=== PATIENT | male | born 1950 | race Caucasian/White ===

== ENCOUNTER 2021-04-17 08:49 | Outpatient (CLI) | payer MEDICARE, OTHER, SELFPAY ==
--- NOTE | ~2021-04-17 | US_ITS ---
EXAMINATION: US carotid duplex BI DATE: 04/17/2021 09:44 INDICATION: Bilateral carotid artery atherosclerosis and stenosis. TECHNIQUE: Grayscale, color Doppler, and pulsed Doppler images of the cervical carotid arteries were obtained. The degree of vessel stenosis is placed in one of the following categories: normal, <50%, 5 0-69%, >=70% but less than near-occlusion, near-occlusion, or total occlusion. Note that percent sten osis relative to normal distal artery lumen diameter is indirectly measured from velocity measurement s as described by Cirilo, et al. Radiology 2003; 229:340-346. COMPARISON: 05/01/2018 FINDINGS: RIGHT: The right common carotid artery (CCA) peak systolic velocity (PSV) is 93 cm/s. The right internal car otid artery (ICA) PSV is 135 cm/s. The right ICA end-diastolic velocity (EDV) is 30 cm/s. The right I CA/CCA PSV ratio is 1.4. Grayscale and color Doppler images yield an estimate of 50-69% diameter redu ction from plaque in the ICA. The external carotid artery (ECA) PSV is 97 cm/s. There is antegrade fl ow in the right vertebral artery. LEFT: The left CCA PSV is 86 cm/s. The left ICA PSV is 127 cm/s. The left ICA EDV is 43 cm/s. The left ICA/ CCA PSV ratio is 1.5. Grayscale and color Doppler images yield an estimate of 50-69% diameter reducti on from plaque in the ICA. The ECA PSV is 85 cm/s. There is antegrade flow in the left vertebral bindu ry. IMPRESSION: 1. 50-69% stenosis in the right internal carotid artery. 2. 50-69% stenosis in the left internal carotid artery. Reviewed, dictated and finalized at location A.
== END 2021-04-17 08:50 | disposition home or self-care (01) ==
LOC: ANHIMG 08:53
PROVIDERS: PCP Family Medicine; Visit Provider Family Medicine
DX: I65.23 Occlusion and stenosis of bilateral carotid arteries (principal)
CPT/HCPCS: 93880

== ENCOUNTER → 2021-07-29 00:08 | Outpatient (CLI) | payer MEDICARE, OTHER, SELFPAY ==
[2021-07-29 16:46] LABS: SARS-CoV-2 RNA PCR Positive
== END ==
PROVIDERS: PCP Family Medicine; Visit Provider Nurse Practitioner Gerontology
DX: U07.1 COVID-19 (principal)
CPT/HCPCS: C9803; U0003; U0005

== ENCOUNTER 2021-08-01 13:17 | Outpatient (RCR) | payer MEDICARE, OTHER, SELFPAY ==
[2021-08-01 13:35] VITALS: BP 148/78; PULSE 105; TEMP 37.1; O2SAT 78
--- NOTE | 2021-08-01 14:03 | PC.NURSE ---
Patient arrived to center via wheelchair. O2 saturation initially 78% on room air, increasing to 82%. EMS was called to take patient to ED. Oxygen was initiated via nasal cannula requiring 5L to achieve and maintain 90%. Patient was discharged into EMS care on their oxygen tank and taken to [facility].
== END 2021-08-12 16:00 ==
LOC: AMCINF 13:17
PROVIDERS: PCP Nurse Practitioner Gerontology; Referring Provider Nurse Practitioner Gerontology; Visit Provider Internal Medicine Hematology & Oncology
DX: U07.1 COVID-19 (principal); Z53.9 Procedure and treatment not carried out, unspecified reason
CPT/HCPCS: 99205; 99215; G0463

== ENCOUNTER 2021-08-01 14:14 | Inpatient (IN) | payer MEDICARE, OTHER, SELFPAY ==
[2021-08-01] VITALS (17 sets, daily range): BP systolic 131–188; BP diastolic 70–85; PULSE 76–115; RESP 20–30; TEMP 36–37.8; O2SAT 91–99
--- NOTE | ~2021-08-01 | XR_ITS ---
XR chest 1V portable 08/05/2021 03:40 Indication: CovidPneumonia Procedure: AP portable chest Comparison: 08/01/2021 Findings: Borderline heart size. Extensive bilateral airspace disease, compatible with pneumonia. No significant effusion or pneumothorax. No acute osseous abnormality. Impression: 1: Extensive bilateral airspace disease, compatible with pneumonia. Reviewed, dictated and finalized at location A. CIATE PROFESSOR OF MANAGEMENT Impression: 1: Extensive bilateral airspace disease, compatible with pneumonia.
--- NOTE | ~2021-08-01 | XR_ITS ---
EXAMINATION: XR chest 1V portable INDICATION: Respiratory failure TECHNIQUE: Portable AP chest at 0512 hours COMPARISON: 08/08/2021 FINDINGS: The endotracheal tube ends approximately 4.7 cm above the fiordaliza. The nasogastric tube is f ollowed as far as the stomach. Its tip is beyond the inferior margin of the radiograph. A left physician general internal medicine al jugular central venous catheter ends with its tip in proximal superior vena cava. Diffuse airspace opacities persist throughout all lung zones with interval worsening. There is no pleural effusion or pneumothorax. The cardiomediastinal silhouette is stable. IMPRESSION: 1. Diffuse lung disease with interval worsening, consistent with pneumonia and/or pulmonary edema and /or acute respiratory distress syndrome (ARDS). Reviewed, dictated and finalized at location A. ERTY AND EQUIPMENT CLERK IMPRESSION: 1. Diffuse lung disease with interval worsening, consistent with pneumonia and/ or pulmonary edema and/or acute respiratory distress syndrome (ARDS).
--- NOTE | ~2021-08-01 | XR_ITS ---
EXAMINATION: XR abdomen NG/feed tube insert DATE: 08/05/2021 04:49 INDICATION: Nasogastric tube placement TECHNIQUE: A supine view of the abdomen and lower chest was obtained for evaluation of feeding tube placement. COMPARISON: None. FINDINGS: Is a gastric tube tip in proximal side port in the body of the stomach. No dilated loops of gas-fille d bowel in the visualized abdomen. Airspace opacities at the bilateral lung bases. Heart size is norm al. Anterior fusion with bone graft cage at L5-S1. L4 and L5 laminectomies and posterior spinal fusio n with bilateral vertical tj and pedicle screw fixation from L3-L5. IMPRESSION: 1. Nasogastric tube in the stomach. 2. Opacities at the bilateral lower lung zones consistent with pneumonia. Reviewed, dictated and finalized at location A. TIC WELDER
--- NOTE | ~2021-08-01 | XR_ITS ---
EXAMINATION: XR chest port-a-cath/central EXAM DATE: 08/08/2021 13:10 INDICATION: TECHNIQUE: Portable AP frontal chest x-ray was obtained. Comparison is made to prior examination from earlier same date. FINDINGS: Interval insertion of a left-sided jugular venous line, could be the external jugular given lateral course. Tip is overlying the SVC, adequate. I reviewed this case in my office at time of thi s dictation with the venous access nurse, Nolvia, who inserted this line. Endotracheal tube tip is about 5 centimeters above the fiordaliza. There is a nasogastric tube seen with tip collimated off the study, but below the left hemidiaphragm. Diffuse bilateral pneumonia or edema with relative sparing of the left upper lobe. There are no siza ble pleural effusions. There is no pneumothorax suspected. Mild cardiomegaly. The bones and soft tissues are unremarkable. There is no significant interval change in airspace disease compared to prior exam. IMPRESSION: 1. Line and tube(s) in position. 2. Diffuse bilateral pneumonia or edema. Reviewed, dictated and finalized at location A. ER DOBBY LOOM
--- NOTE | ~2021-08-01 | US_ITS ---
EXAMINATION: US renal BI DATE: 08/07/2021 10:38 INDICATION: Acute renal insufficiency TECHNIQUE: Multiple ultrasound grayscale images of the kidneys were obtained. COMPARISON: None. FINDINGS: The right kidney measures 10.8 x 6.1 x 4.8 cm. The left kidney measures 13.6 x 6.0 x 5.4 cm. The kidn eys demonstrate normal echogenicity. There is no hydronephrosis in either kidney. No stones identifi ed. Patient was in prone position and bladder was unable to be imaged. IMPRESSION: 1. Normal kidneys without hydronephrosis. Reviewed, dictated and finalized at location A. NESS SALES CONSULTANT
--- NOTE | ~2021-08-01 | XR_ITS ---
EXAMINATION: XR chest 1V portable EXAM DATE: 08/12/2021 05:29 INDICATION: respiratory failure TECHNIQUE: Portable AP frontal chest x-ray was obtained. Comparison is made to prior examination from 08/11/2021. FINDINGS: Endotracheal tube tip is 4 centimeters above the fiordaliza. Left-sided jugular venous line in position. There is a nasogastric tube seen with tip collimated off the study, but below the left hem idiaphragm. Cervical hardware. Diffuse bilateral pneumonia and/or edema unchanged. There are no sizable pleural effusions. There is no pneumothorax suspected. The cardiomediastinal silhouette is prominent but magnified on this A P technique. The bones and soft tissues are unremarkable. There is no significant interval change compared to prior exam. IMPRESSION: 1. Line and tube(s) in position. 2. Stable airspace disease and other findings as above. Reviewed, dictated and finalized at location A. HANGER
--- NOTE | ~2021-08-01 | XR_ITS ---
EXAMINATION: XR chest 1V portable EXAM DATE: 08/08/2021 06:11 INDICATION: intubation TECHNIQUE: Portable AP frontal chest x-ray was obtained. Comparison is made to prior examination from 08/07/2021 . FINDINGS: Endotracheal tube tip is about 4 centimeters above the fiordaliza. There is a nasogastric tube seen with tip collimated off the study, but below the left hemidiaphragm. Diffuse bilateral pneumonia or edema with relative sparing of the left upper lobe. There are no siza ble pleural effusions. There is no pneumothorax suspected. Mild cardiomegaly. The bones and soft tissues are unremarkable. There is no significant interval change compared to prior exam. IMPRESSION: 1. Line and tube(s) in position. 2. Diffuse bilateral pneumonia or edema. Reviewed, dictated and finalized at location A. IMEDIA PRODUCTION ASSISTANT
--- NOTE | ~2021-08-01 | US_ITS ---
EXAMINATION: US venous doppler UE DATE: 08/08/2021 11:06 INDICATION: Left arm swelling TECHNIQUE: Yo scale images with and without compression and Doppler images of the left upper extrem ity veins were obtained. COMPARISON: None. FINDINGS: The left internal jugular, subclavian, axillary, brachial and radial veins are patent. There is super ficial thrombosis in the left cephalic and cephalic veins with deep venous thrombosis of the left uln ar vein. IMPRESSION: 1. Deep venous thrombosis of the left ulnar vein. 2: Thrombosis of the basilic and cephalic and superficial veins. Reviewed, dictated and finalized at location B. SH PAINTER
--- NOTE | ~2021-08-01 | XR_ITS ---
EXAMINATION: XR chest 1V portable DATE: 08/10/2021 13:35 INDICATION: Respiratory distress. Endotracheal tube. TECHNIQUE: frontal view of the chest was obtained. COMPARISON: Chest radiograph dated 08/10/2021 FINDINGS: Endotracheal tube tip 3.7 cm above the fiordaliza. Nasogastric tube extends below the left hemidiaphragm with distal tip collimated off the study. Left internal jugular central venous catheter with distal tip at the midsuperior vena cava. Bilateral diffuse increased interstitial and airspace opacities with perihilar predominance with slig ht interval improvement. No pleural effusion or pneumothorax. Heart size is normal. Anterior spinal f usion in the mid cervical spine with anterior plate and screw fixation. Bilateral distal clavicle res ections. IMPRESSION: 1. Improvement in diffuse bilateral lung disease which could represent pulmonary edema, pneumonia or combination thereof. Reviewed, dictated and finalized at location A. NTIFIC INFORMATICS ANALYST IMPRESSION: 1. Improvement in diffuse bilateral lung disease which could represent pulmonar y edema, pneumonia or combination thereof.
--- NOTE | ~2021-08-01 | CT_ITS ---
EXAMINATION: CT brain wo con DATE: 08/04/2021 11:15 INDICATION: Fall. Head injury. TECHNIQUE: Computed tomography (CT) of the head was performed without intravenous contrast. The mA wa s adjusted according to patient size. Iterative reconstruction technique was employed. Exam dose: 68 1.00 mGy-cm total exam DLP. COMPARISON: August 01, 2021 CT brain FINDINGS: There is cerebral atherosclerosis and diminished attenuation cerebral white matter likely d ue to chronic small vessel ischemic change of the cerebral white matter. No intracranial mass lesion or hemorrhage or cerebrovascular accident. No midline shift or mass effec t effect. Normal ventricular size. No subdural or epidural hematoma is detected. Orbital contents are unremarkable. No fracture or bone destruction of the cranial vault. Paranasal sinuses and mastoid air cells are normally developed and aerated. IMPRESSION: Cerebral atherosclerosis and chronic small vessel ischemic changes of the cerebral white matter No acute intracranial finding or skull fracture Reviewed, dictated and finalized at Location A. Reviewed, dictated and finalized at location B. REPLACER
--- NOTE | ~2021-08-01 | XR_ITS ---
EXAMINATION: XR chest 1V portable DATE: 08/10/2021 06:10 INDICATION: COVID-19 pneumonia. TECHNIQUE: A single frontal view of the chest was obtained on 2 radiographs. COMPARISON: Chest single view 08/09/2021, chest CT 08/01/2021 FINDINGS: There are airspace and interstitial opacities in all lung zones bilaterally with a perihila r predominance. No pleural effusion or pneumothorax. The heart size is normal. The endotracheal tube tip is 4.9 cm above the fiordaliza. A left neck central venous catheter may be in the external jugular ve in with tip in the superior vena cava. The nasogastric tube tip is in the stomach. IMPRESSION: 1. Worsened diffuse lung disease, consistent with pneumonia without or with superimposed pulmonary ed jerilyn. Reviewed, dictated and finalized at location E. CITY MANAGEMENT SPECIALIST IMPRESSION: 1. Worsened diffuse lung disease, consistent with pneumonia without or with sup erimposed pulmonary edema.
--- NOTE | ~2021-08-01 | CT_ITS ---
EXAMINATION: CT abdomen pelvis wo con EXAM DATE: 08/04/2021 17:46 INDICATION: Abdominal pain. COVID positive. TECHNIQUE: Spiral CT of the abdomen and pelvis was performed without contrast. Axial, coronal and s agittal images of the abdomen and pelvis were reviewed. The dose-length product (DLP) for this exami nation was 1242.36 mGy-cm. The exposure was tailored according to patient size (auto mA exposure con trol), and iterative reconstruction (ASIR) was used as additional dose reduction technique. There is no prior study for comparison. FINDINGS: The liver, spleen, adrenal glands and pancreas are unremarkable. Gallbladder is unremarkab le. No biliary obstruction. Several punctate left inferior calyceal stones. No ureteral stones or h ydronephrosis. The prostate is unremarkable. The bladder is collapsed with Domingo catheter balloon a nchor inside. Bladder gas likely produced through the Domingo catheter. Small bilateral inguinal fat-co ntaining hernias. There is no retroperitoneal or pelvic lymphadenopathy. [id number] The appendix is normal. The stomach and small bowel are unremarkable. There is expected amount of c olonic stool. No free intraperitoneal gas. The heart is normal in size. There are no pericardial or pleural effusions. Moderate amount of basilar pneumonia. Mild lumbar levoscoliosis. Lumbar fusi on L3-S1. There are no osteoblastic or osteolytic lesions identified. IMPRESSION: 1. Moderate amount of basilar pneumonia. 2. Punctate left nephrolithiasis. 3. No acute intra-abdominal findings. Reviewed, dictated and finalized at location G. IDE SALESMAN
--- NOTE | ~2021-08-01 | XR_ITS ---
XR chest ET placement 08/05/2021 04:49 Indication: Respiratory distress Procedure: AP portable chest Comparison: Comparison to multiple prior studies sequentially, with oldest reviewed study dated 08/01. Findings: Endotracheal tube 11 mm above the fiordaliza. Consider repositioning with follow-up x-ray. Diff use bilateral airspace disease. Cardiomegaly. No pneumothorax. No significant effusion. Impression: 1: Diffuse bilateral airspace disease which may represent pneumonia or edema. Reviewed, dictated and finalized at location A. HMIC GYMNASTICS COACH Impression: 1: Diffuse bilateral airspace disease which may represent pneumonia or edema.
--- NOTE | ~2021-08-01 | CT_ITS ---
EXAMINATION: CTA chest PE protocol DATE: 08/01/2021 16:03 INDICATION: Shortness of breath. COVID positive. TECHNIQUE: Computed tomography (CT) pulmonary angiogram of the chest was performed with 100 mL Omnipa que-350 intravenous contrast. Additional 3D reconstructions utilizing coronal maximum intensity proje ction (MIP) were performed. Automated exposure control and iterative reconstruction technique were em ployed. The dose-length product was 944.69 mGy-cm. COMPARISON: None FINDINGS: Good contrast opacification of the pulmonary arteries. There is mild streak artifact from dense contr ast in the superior vena cava and right atrium. There is extensive respiratory motion artifact which significantly decreases sensitivity in the segmental pulmonary arteries and renders assessment in man y of the more peripheral subsegmental pulmonary arteries essentially nondiagnostic. No central pulmon artie embolism through the lobar pulmonary arteries or other definitive more peripheral pulmonary embol ism. There is extensive groundglass opacities throughout both lungs most prominent in the lower lung zones where there is also more dense peripheral consolidation in the dependent lower lobes. No pleura l effusion or pneumothorax. Heart size is normal. Atherosclerotic coronary artery calcific location. No pericardial effusion. Thoracic aorta is normal in caliber with no dissection. Mild likely reactive mediastinal lymphadenopathy. Visualized upper abdomen is unremarkable. Instrumented anterior spinal fusion at C5-C6 and C6-C7. Severe thoracic spondylosis. IMPRESSION: 1. No definitive pulmonary embolism. Sensitivity decreased in the lobar pulmonary arteries and essent ially nondiagnostic in many of the smaller subsegmental pulmonary arteries due to large amount of res piratory motion. 2. Diffuse bilateral lung disease with appearance favoring COVID pneumonia. Differential includes pul monary edema. 3. Likely reactive mild mediastinal lymphadenopathy. Reviewed, dictated and finalized at location A. RNAL CHILD NURSE IMPRESSION: 1. No definitive pulmonary embolism. Sensitivity decreased in the lobar pulmona ry arteries and essentially nondiagnostic in many of the smaller subsegmental p ulmonary arteries due to large amount of respiratory motion. 2. Diffuse bilateral lung disease with appearance favoring COVID pneumonia. Dif ferential includes pulmonary edema. 3. Likely reactive mild mediastinal lymphadenopathy.
--- NOTE | ~2021-08-01 | XR_ITS ---
EXAMINATION: XR chest 1V portable DATE: 08/11/2021 05:52 INDICATION: Respiratory failure. TECHNIQUE: A single frontal view of the chest was obtained on 2 radiographs. COMPARISON: Chest single view 08/10/2021, CT abdomen and pelvis 08/04/2021 FINDINGS: There are interstitial opacities in all lung zones bilaterally. No pleural effusion or pneu mothorax. The heart size is normal. The endotracheal tube tip is 5.6 cm above the fiordaliza. There is a left neck centered in this catheter with tip in superior vena cava. The insertion site is likely the left external jugular vein. There are changes of anterior fusion procedure in cervical spine. The carola ogastric tube tip is in the stomach. IMPRESSION: 1. Stable diffuse lung disease, consistent with pneumonia versus acute respiratory distress syndrome (ARDS). Reviewed, dictated and finalized at location A. ITIAN CHIEF IMPRESSION: 1. Stable diffuse lung disease, consistent with pneumonia versus acute respirat ory distress syndrome (ARDS).
--- NOTE | ~2021-08-01 | XR_ITS ---
XR chest 1V portable 08/06/2021 09:41 Indication: Respiratory distress. Status post intubation. Procedure: PA prone view of the chest Comparison: 08/05/2021 Findings: endotracheal tube tip 5 cm above the fiordaliza. NG tube tip not visualized. Diffuse bilateral airspace disease is unchanged. No pneumothorax. No significant effusion. Impression: 1: Diffuse bilateral airspace disease which may represent pneumonia or edema. Reviewed, dictated and finalized at location A. SPERSON WOMEN'S DRESSES Impression: 1: Diffuse bilateral airspace disease which may represent pneumonia or edema.
--- NOTE | ~2021-08-01 | CT_ITS ---
EXAMINATION: CT brain wo con DATE: 08/01/2021 16:01 INDICATION: Confusion. Covid-positive. TECHNIQUE: Computed tomography (CT) of the head was performed without intravenous contrast. The mA wa s adjusted according to patient size. Iterative reconstruction technique was employed. Exam dose: 68 1.00 mGy-cm total exam DLP. COMPARISON: None FINDINGS: No intracranial mass lesion or hemorrhage or cerebrovascular accident, midline shift or mas s effect effect is detected. Vertebral and carotid siphon internal carotid artery calcifications are noted. There is nonspecific d iminished attenuation of the cerebral white matter, likely due to chronic small vessel ischemic knapp es. No fracture or bone destruction of the cranial vault. Included paranasal sinuses and mastoid air cells are normally developed and aerated. IMPRESSION: Cerebral atherosclerosis and chronic small vessel ischemic changes of the cerebral white matter No acute intracranial finding Reviewed, dictated and finalized at Location A. Reviewed, dictated and finalized at location B. [employer]
--- NOTE | ~2021-08-01 | XR_ITS ---
EXAMINATION: XR chest 1V portable DATE: 08/01/2021 14:42 INDICATION: Shortness of breath. COVID-19 pneumonia. TECHNIQUE: A single frontal view of the chest was obtained. COMPARISON: None. FINDINGS: There are airspace opacities in the mid and lower lung zones. No pleural effusion or pneumo thorax. Cardiomegaly is noted. There are changes of anterior fusion procedure in cervical spine. IMPRESSION: 1. Airspace opacities in the mid and lower lung zones, consistent with pneumonia. 2. Cardiomegaly. Reviewed, dictated and finalized at location A. L FINANCIAL SPECIALIST IMPRESSION: 1. Airspace opacities in the mid and lower lung zones, consistent with pneumoni a. 2. Cardiomegaly.
--- NOTE | ~2021-08-01 | XR_ITS ---
EXAMINATION: XR chest 1V portable EXAM DATE: 08/07/2021 05:59 INDICATION: Respiratory failure. TECHNIQUE: Portable AP frontal chest x-ray was obtained. Comparison is made to prior examination from 08/06/2021. FINDINGS: Endotracheal tube tip is about 4 centimeters above the fiordaliza. There is a nasogastric tube seen with tip collimated off the study, but below the left hemidiaphragm. Diffuse bilateral pneumonia or edema unchanged. There are no sizable pleural effusions. There is n o pneumothorax suspected. Mild cardiomegaly. The bones and soft tissues are unremarkable. There is no significant interval change compared to prior exam. IMPRESSION: 1. Line and tube(s) in position. 2. Diffuse bilateral pneumonia or edema. Reviewed, dictated and finalized at location A. RETE PAVEMENT INSTALLER
--- NOTE | 2021-08-01 14:20 | ECG_ITS ---
Measurements Intervals Inez Rate: 100 P: 43 WV: 174 QRS: -3 QRSD: 85 T: 33 QT: 316 QTc: 409 Interpretive Statements SINUS TACHYCARDIA BASELINE ARTIFACT- I, II, III, AVR, AVL, AVF BORDERLINE ECG Electronically Signed On 08-01-2021 15:57:16 ADVENTURE GUIDE by Gerald Steel D.O.
--- NOTE | 2021-08-01 14:51 | ED.SOB ---
HPI - SOB/Dyspnea General Chief Complaint: Shortness of Breath/Dyspnea Stated Complaint: low O2 sat, confusion Time Seen by Provider: 08/01/21 14:38 Source: patient Mode of arrival: EMS Limitations: altered mental status History of Present Illness HPI Narrative: Patient is a 71-year-old male with history of hypertension, hyperlipidemia, day 10 of Covid illness tested + July 29, positive testing in our EMR 07/29 presenting to the emergency department for evaluation of shortness of breath, confusion. Patient reportedly confused, with increasing shortness of breath, called EMS this morning and was brought to emergency department. At the time of assessment, patient is alert and oriented to person, place, can state the president. He does seem mildly confused, has some difficulty answering questions. Patient reporting cough, malaise, fatigue, fever. Denies loss of sense of taste or smell. Denies diarrhea. Denies chest pain or abdominal pain. Patient is not vaccinated. Patient's sick with similar symptoms. Related Data Home Medications Medication Instructions Recorded Confirmed multivitamin 1 tablet PO DAILY 05/28/19 07/28/21 pyridoxine (vitamin B6) 5 mg mg PO 08/28/19 07/28/21 capsule vitamin B complex 1 tablet PO DAILY 05/03/20 07/28/21 Allergies Allergy/AdvReac Type Severity Reaction Status Date / Time No Known Allergies Allergy Mild Verified 08/01/21 14:24 Review of Systems Review of Systems: CONSTITUTIONAL: Reports fever and chills CARDIOVASCULAR: Denies chest pain RESPIRATORY: Reports cough and shortness of breath GASTROINTESTINAL: Denies abdominal pain SKIN: Denies rash MUSCULOSKELETAL: Denies back pain NEUROLOGIC: Denies headache ROS unobtainable: Yes unobtainable due to mental status PMFSH Past Medical History Medical History Prediabetes Surgical History Surgical History History of cervical spinal surgery History of lumbar surgery Status post cervical spinal arthrodesis Family History Family History Father Family history of kidney disease Family history of coronary artery disease, Onset Age: 75 Social History Social History Social History: Smoking status: Former smoker Second hand tobacco smoke exposure: No Alcohol intake: current Alcohol use details: Occasionally Substance use: never Substance use type: does not use Gender identity (if verbalized by the patient): Male Sexual Orientation (if Verbalized by the Patient): Straight or Heterosexual Exam Narrative: GENERAL: Awake, alert HEAD: Normocephalic, atraumatic. EYES: PERRLA and EOMI. ENT: Nares clear, no rhinorrhea or epistaxis. Mucous membranes dry NECK: Supple. CHEST: Pt with respiratory distress, hypoxic respiratory failure, tachypneic, coarse breath sounds HEART: Tachycardic rate, sinus rhythm ABDOMEN:Non distended, non tender EXTREMITIES: Normal range of motion. No edema. SKIN: Warm, dry, no rash. NEURO:No focal deficits. Alert and oriented x2, slightly confused, difficulty obtaining detailed history Course Vital Signs Vital signs: Vital Signs Temperature 37.8 C H 08/01/21 14:18 Pulse Rate 101 H 08/01/21 14:18 Respiratory Rate 27 H 08/01/21 14:18 Blood Pressure 188/85 H 08/01/21 14:18 Pulse Oximetry 93 08/01/21 14:18 Temperature 37.3 C 08/01/21 16:42 Pulse Rate 89 08/01/21 15:44 Respiratory Rate 26 H 08/01/21 15:44 Blood Pressure 139/70 08/01/21 15:44 Pulse Oximetry 96 08/01/21 15:44 MDM - SOB/Dyspnea MDM Narrative Medical decision making narrative: Patient is a 71-year-old presenting to the emergency department for evaluation of Covid respiratory failure. The time of assessment, patient is hypoxic, tachycardic, tachypneic. Patient was on
[2021-08-01] MEDS: SODIUM CHLORIDE 0.9% IV 500 ML 999 ML IV CONT (15:04)
[2021-08-01 15:07] LABS: Basophils Percent Auto 0.2 % (0.2-1.2); Hemoglobin 15.8 g/dL (14.0-18.0); Immature Granulocyte Absolute 0.13 K/mm3 (0.00-0.031); Immature Granulocyte Percent A 1.2 % (0-0.5); Lymphocytes Absolute Auto 0.71 K/mm3 (0.9-3.2); Lymphocytes Percent Auto 6.3 % (18.3-44.2); Mean Corpuscular HGB Conc 35.1 g/dl (32-36); Mean Corpuscular Volume 91.3 fl (80-100); Mean Platelet Volume 11.8 fl (7.4-10.4); Monocytes Absolute Auto 0.6 K/mm3 (0.1-0.6); Monocytes Percent Auto 5.2 % (2.6-8.5); Neutrophils Absolute Auto 9.8 K/mm3 (1.3-6.7); Neutrophils Percent Auto 87.1 % (45.5-73.1); Platelet Count Result 221 k/mm3 (150-375); Red Blood Count 4.93 M/mm3 (4.6-6.20); Red Cell Distribution Width 13.7 % (11.5-14.5); White Blood Count 11.2 K/mm3 (4.5-10.0)
[2021-08-01 15:15] LABS: Lactic Acid Reflex 2.3 mmol/L (0.7-2.1)
[2021-08-01 15:33] LABS: Alanine Aminotransferase 58 U/L (4-50); Albumin Level 3.6 g/dL (3.5-5.1); Alkaline Phosphatase 71 U/L (38-126); Anion Gap 7 mmol/L (8-16); Aspartate Amino Transferase 201 U/L (17-59); Bilirubin,Total 0.7 mg/dL (0.2-1.3); Blood Urea Nitrogen 18 mg/dL (9-20); Calcium 8.6 mg/dL (8.4-10.2); Carbon Dioxide 26 mmol/L (22-30); Chloride 99 mmol/L (98-107); Estimated CRCL calculation 70 ml/min; Estimated Glomerular Filt Rate > 60; Glucose 201 mg/dL (65-110); Potassium 4.7 mmol/L (3.4-5.0); Sodium 132 mmol/L (137-145)
[2021-08-01 15:35] LABS: Atypical Lymphocytes Present; Platelet Estimate Adequate (Adequate)
[2021-08-01 15:36] LABS: CRP 8.9 mg/dL (<1.0)
[2021-08-01 15:50] LABS: Procalcitonin 0.1 ng/mL
[2021-08-01 15:53] LABS: Alveolar/Arterial O2 Gradient 617.1 mmHg; Base Excess ABG -2.8 mEq/l (+/-2.0); Carboxyhemoglobin 0.3 % THb (0-2.0); Fractional Inspired Oxygen 100 %; HCO3 ABG 18.9 mEq/l (22.0-26.0); Methemoglobin ABG 0.3 %THb (0-1.5); Modified Allen's Test Pass; Oxygen Saturation ABG 95.4 % (95.0-100.0); Oxyhemoglobin 93.1 % THb (90.0-100.0); PO2 ABG 69.9 mmHg (80.0-100.0); Reduced Hemoglobin 6.3 %THb (0-5.0); Site Drawn RIGHT RADIAL; Total Hemoglobin 15.3 g/dL (12.0-18.0); pH ABG 7.479 (7.350-7.450)
--- NOTE | 2021-08-01 16:12 | PC.NURSE ---
Patient attempting to urinate at this time.
[2021-08-01 16:36] LABS: Lactate Dehydrogenase 2426 U/L (313-618)
[2021-08-01 16:53] LABS: Add Urine Microscopic? YES; Appearance Urine Clear (Clear); Bilirubin Urine Negative (Negative); Blood Urine Negative (Negative); Color Urine Yellow (Yellow); Glucose Urine UA 1+ mg/dL (Negative); Ketones Urine Negative (Negative); Leukocyte Esterase Ur Negative LEU/UL (Negative); Mucus Urine Rare /lpf; Nitrate Urine Negative (Negative); Protein Urine 3+ mg/dL (Negative); RBC Urine 0-2 /hpf (0-2); Urobilinogen Urine Negative mg/dL (<2.0); WBC Urine 0-3 /hpf
--- NOTE | 2021-08-01 16:54 | PC.NURSE ---
Called lab and spoke to Kaushik to add on PT/INR and Creat w/EGFR Alt. Kaushik states Creat should have already been done.
[2021-08-01 16:57] LABS: Specific Grav Ur 1.045 (1.001-1.035)
[2021-08-01 17:09] LABS: INR 1.1; Prothrombin Time 13.6 Seconds (11.1-14.7)
[2021-08-01] MEDS: REMDESIVIR 200 MG/NS 250 ML 200 MG/250 ML BAG 250 MG IVPB (17:49)
[2021-08-01 18:03] LABS: Reflex Lactic Acid Yes or No Add Lactic
--- NOTE | 2021-08-01 18:11 | PC.NURSE ---
This patient, Zenon Worrell, was admitted to IMU Room 232-01. Patient/family oriented to hospital policies and general routines including ID bracelet, bed and alarms, visiting hours, pain management, procedures, bathroom and other care routines, personal items, smoking policy, room service/diet, and visiting hours. Information on how to activate the Rapid Response Team has been discussed. Patient/Family are encouraged to report perceived risks to care and to ask questions if they do not understand what they are told or what they should do.
[2021-08-01 18:14] LABS: Ferritin > 2000.00 ng/mL (11.1-264)
--- NOTE | 2021-08-01 21:12 | PM.IMHP ---
H&P: HPI History of Present Illness Date/Time: 08/01/21 21:12 this is a 71-year-old male patient who lives at home with his . He is on vaccinated male patient who has a history of hypertension and hyperlipidemia. The patient tested positive on July 29. The patient presented to the emergency room with complaints of shortness of breath and confusion. Patient was more short of breath patient was brought to the emergency room via ambulance and he was alert orientated to person and place and could state who the president was. The patient is answering some questions but is still having some mental fogginess. Patient's is also sick with the similar symptoms. Head CT was read as cerebral atherosclerosis and chronic small-vessel ischemic changes of the cerebral white matter no acute intracranial findings. Chest CTA was read as the following.1. No definitive pulmonary embolism. Sensitivity decreased in the lobar pulmonary arteries and essentially nondiagnostic in many of the smaller subsegmental pulmonary arteries due to large amount of respiratory motion. 2. Diffuse bilateral lung disease with appearance favoring COVID pneumonia. Differential includes pulmonary edema. 3. Likely reactive mild mediastinal lymphadenopathy. The patient was given IV Tylenol, IV fluids Decadron and REM does severe in the emergency room. The patient is being admitted to inpatient status on the date of service 08/01/2021. Chief Complaint: Shortness of breath Review of Systems Review of Systems: All systems reviewed & are unremarkable except as noted in HPI and below Constitutional: Constitutional: Reports as per HPI and Reports no additional constitutional complaints Eyes: Eyes: Reports as per HPI and Reports no additional eye complaints ENT: Reports system reviewed and no additional complaints, except as documented and Reports Normal hearing present Cardiovascular: Cardiovascular: Reports no additional cardiovascular complaints Respiratory: Respiratory: Reports no additional respiratory complaints and Reports no additional respiratory complaints Gastrointestinal: Gastrointestinal: Reports as per HPI and Reports no additional gastrointestinal complaints Musculoskeletal: Musculoskeletal: Reports no additional musculoskeletal complaints Integumentary/Breasts: Skin/Breast: Reports system reviewed and no additional complaints, except as docu and Reports as per HPI Neurologic: Reports system reviewed and no additional complaints, except as documented, Reports as per HPI and Reports Normal hearing present Psychiatric: Psychiatric: Reports no additional psychiatric complaints and Reports as per HPI Endocrine: Endocrine: Reports no additional endocrine complaints Hematologic/Lymphatic: Hematologic/Lymphatic: Reports no additional hematologic/lymphatic complaints Allergic/Immunologic: Allergic/Immunologic: Reports no additional allergic/immunologic complaints PMFSH Past Medical History Medical History (Updated 08/01/21 @ 21:21 by Leila Botello NP) Arthritis Essential (primary) hypertension Mixed hyperlipidemia Prediabetes Surgical History Surgical History (Updated 08/01/21 @ 21:20 by Leila Btoello NP) H/O elbow surgery Bilaterally H/O toe surgery Bilateral toe implants History of cervical spinal surgery History of lumbar surgery History of shoulder surgery Bilaterally History of surgery on wrist Status post cervical spinal arthrodesis Family History Family History Father Family history of kidney disease Family history of coronary artery disease, Onset Age: 75 Social History Social History (Updated 08/01/21 @ 21:22 by Leila Botello NP) Social History: 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 He has 1 child. He retired from [employer]. He occasionally has a drink a beer he is a former smoker. Does not use any marijuana o
[2021-08-01 21:42] LABS: Basophils Absolute Auto 0.1 K/mm3 (0.0-0.1); Basophils Percent Auto 0.4 % (0.2-1.2); Eosinophils Absolute Auto 0.1 K/mm3 (0-0.3); Eosinophils Percent Auto 0.6 % (0-4.4); Hematocrit 45.7 % (42.0-52.0); Hemoglobin 15.2 g/dL (14.0-18.0); Immature Granulocyte Absolute 0.16 K/mm3 (0.00-0.031); Immature Granulocyte Percent A 1.3 % (0-0.5); Lymphocytes Absolute Auto 0.69 K/mm3 (0.9-3.2); Lymphocytes Percent Auto 5.6 % (18.3-44.2); Mean Corpuscular HGB Conc 33.3 g/dl (32-36); Mean Corpuscular Hemoglobin 31.1 pg (26-34); Mean Corpuscular Volume 93.6 fl (80-100); Mean Platelet Volume 11.6 fl (7.4-10.4); Monocytes Absolute Auto 0.6 K/mm3 (0.1-0.6); Monocytes Percent Auto 5.1 % (2.6-8.5); Neutrophils Absolute Auto 10.8 K/mm3 (1.3-6.7); Platelet Count Result 225 k/mm3 (150-375); Red Blood Count 4.88 M/mm3 (4.6-6.20); Red Cell Distribution Width 13.7 % (11.5-14.5); White Blood Count 12.4 K/mm3 (4.5-10.0)
[2021-08-01 21:51] LABS: Alanine Aminotransferase 56 U/L (4-50); Aspartate Amino Transferase 195 U/L (17-59); Estimated CRCL calculation 79 ml/min; Estimated Glomerular Filt Rate > 60
[2021-08-01 21:58] LABS: Atypical Lymphocytes Present; Platelet Estimate Adequate (Adequate)
[2021-08-01] MEDS: BARICITINIB 2 MG TABLET 4 MG PO (23:08)
[2021-08-01] MEDS: ENOXAPARIN 40 MG/0.4 ML SYRINGE SUB-Q (23:09)
[2021-08-02] VITALS (18 sets, daily range): BP systolic 111–167; BP diastolic 56–88; PULSE 70–116; RESP 18–26; TEMP 36.2–36.9; O2SAT 88–100
[2021-08-02] MEDS: ALBUTEROL SULFATE (*SP) AEROSOL 1 PUFF 2 PUFF INHALATION ×4 (02:40→19:56)
[2021-08-02 08:12] LABS: Device NON-REBREATHER MASK
[2021-08-02 09:04] LABS: Glucose Point of Care 170 mg/dl (65-105)
[2021-08-02] MEDS: guaiFENesin/DEXTROMETHORPHAN 10 ML UDC PO (09:43)
[2021-08-02] MEDS: HYDROcodone/acetaminophen (*CRX) 5-325 MG TABLET 1 TAB PO ×3 (09:43→21:17)
[2021-08-02] MEDS: BARICITINIB 2 MG TABLET 4 MG PO (09:45)
[2021-08-02] MEDS: CELECOXIB 200 MG CAPSULE PO ×2 (09:47→16:27)
[2021-08-02] MEDS: ASPIRIN 81 MG CHEWABLE TABLET PO (09:48)
[2021-08-02] MEDS: CHOLECALCIFEROL 1,000 UNITS TABLET 1000 UNITS PO (09:48)
[2021-08-02] MEDS: LOSARTAN POTASSIUM 100 MG TABLET PO (09:48)
[2021-08-02] MEDS: PYRIDOXINE HCL 50 MG TABLET 100 MG PO (09:48)
[2021-08-02] MEDS: MULTIVITAMINS THERAPEUTIC TAB (*BKC) 1 TABLET PO (09:49)
[2021-08-02] MEDS: hydroCHLOROthiazide 12.5 MG CAPSULE PO (09:49)
[2021-08-02] MEDS: ASCORBIC ACID 500 MG TABLET 1000 MG PO (09:49)
[2021-08-02] MEDS: ZINC SULFATE 220 MG CAPSULE PO (09:49)
[2021-08-02] MEDS: CYANOCOBALAMIN 500 MCG TABLET PO (09:50)
[2021-08-02] MEDS: ATORVASTATIN 20 MG TABLET PO (09:50)
[2021-08-02] MEDS: MIRABEGRON 50 MG ER TABLET PO (10:04)
[2021-08-02 10:54] LABS: Basophils Percent Auto 0.2 % (0.2-1.2); Hematocrit 43.5 % (42.0-52.0); Hemoglobin 15.1 g/dL (14.0-18.0); Immature Granulocyte Absolute 0.09 K/mm3 (0.00-0.031); Immature Granulocyte Percent A 0.8 % (0-0.5); Lymphocytes Absolute Auto 0.68 K/mm3 (0.9-3.2); Lymphocytes Percent Auto 5.7 % (18.3-44.2); Mean Corpuscular HGB Conc 34.7 g/dl (32-36); Mean Corpuscular Hemoglobin 31.7 pg (26-34); Mean Corpuscular Volume 91.2 fl (80-100); Monocytes Absolute Auto 0.6 K/mm3 (0.1-0.6); Neutrophils Absolute Auto 10.5 K/mm3 (1.3-6.7); Neutrophils Percent Auto 88.3 % (45.5-73.1); Platelet Count Result 254 k/mm3 (150-375); Red Blood Count 4.77 M/mm3 (4.6-6.20); Red Cell Distribution Width 13.6 % (11.5-14.5); White Blood Count 11.8 K/mm3 (4.5-10.0)
[2021-08-02 11:04] LABS: Lactic Acid Reflex 2.5 mmol/L (0.7-2.1)
[2021-08-02 11:08] LABS: INR 1.2; Prothrombin Time 14.8 Seconds (11.1-14.7)
[2021-08-02 11:18] LABS: Alanine Aminotransferase 49 U/L (4-50); Albumin Level 3.7 g/dL (3.5-5.1); Alkaline Phosphatase 69 U/L (38-126); Anion Gap 10 mmol/L (8-16); Aspartate Amino Transferase 171 U/L (17-59); Bilirubin,Total 0.7 mg/dL (0.2-1.3); Blood Urea Nitrogen 20 mg/dL (9-20); Calcium 8.7 mg/dL (8.4-10.2); Carbon Dioxide 26 mmol/L (22-30); Chloride 99 mmol/L (98-107); Estimated CRCL calculation 79 ml/min; Estimated Glomerular Filt Rate > 60; Glucose 203 mg/dL (65-110); Lactate Dehydrogenase 1991 U/L (313-618); Sodium 135 mmol/L (137-145)
[2021-08-02 11:38] LABS: Thyroid Stimulating Hormone Reflex 0.804 uIU/mL (0.465-4.68)
--- NOTE | 2021-08-02 11:45 | P.CDI_ITS ---
CDI Query Clarification Request -Respiratory failure documented by EDP -No documentation of respiratory failure by hospitalist -08/01 ABG's: pH 7.479 pCO2 26.0 pO2 69.9 HCO3 18.9 O2 sats 95% on O2 at 15L NRB -Pt currently on high flow therapy plus NC at 60L -Covid PN documented Please clarify respiratory status: * Respiratory failure ruled out * Acute respiratory failure * Chronic respiratory failure * Acute on chronic respiratory failure * Other * Unable to determine <Annette Blum RN - Last Filed: 08/02/21 11:50> Clarified Diagnosis (1) Acute respiratory failure: Code(s): J96.00 - Acute respiratory failure, unspecified whether with hypoxia or hypercapnia <Annette Blum RN - Last Filed: 08/02/21 11:50> Status: Acute <Annette Blum RN - Last Filed: 08/02/21 11:50> Assessment and Plan: patient with acute respiratory failure most likely secondary to COVID-19 pneumonia <Fransisco Mckeon MD - Last Filed: 08/19/21 14:49>
[2021-08-02 11:54] LABS: Hemoglobin A1C 6.3 % (<5.7)
[2021-08-02 12:58] LABS: Glucose Point of Care 200 mg/dl (65-105)
--- NOTE | 2021-08-02 13:16 | PCCCNOTE ---
On 08/02/21, the student, [Nina Ledbetter], provided care and [facility]. I have reviewed the student's documentation and agree with the findings.
[2021-08-02 13:49] LABS: Reflex Lactic Acid Yes or No Add Lactic
[2021-08-02] MEDS: ALPRAZolam (*CRX) 0.5 MG TABLET PO ×2 (14:26→21:17)
[2021-08-02 14:57] LABS: Lactic Acid 1.9 mmol/L (0.7-2.1)
--- NOTE | 2021-08-02 16:14 | PM.IMPN ---
Progress Note: A&P Assessment and Plan (1) COVID-19: Code(s): U07.1 - COVID-19 Status: Acute Assessment and Plan: The patient is unvaccinated. He is on contact and droplet isolation. The patient is on remdesivir and Decadron as well as olumiant. Continue to monitor labs daily. Continue with albuterol inhaler. Mike. 08/02/2021 interval history patient with COVID-19 patient is is requiring high-flow oxygen being started on dexamethasone, remdesivir and baricinib, will continue to monitor patient oxygen requirement and further recommendation to follow. (2) Essential (primary) hypertension: Code(s): I10 - Essential (primary) hypertension Status: Chronic Assessment and Plan: Continue with losartan and hydrochlorothiazide. Monitor renal function closely. (3) Mixed hyperlipidemia: Code(s): E78.2 - Mixed hyperlipidemia Status: Chronic Assessment and Plan: Continue with atorvastatin. (4) Arthritis: Code(s): M19.90 - Unspecified osteoarthritis, unspecified site Status: Chronic Assessment and Plan: Continue with pain medication Celebrex. Monitor for any signs and symptoms of bleeding since the patient is on DVT prophylaxis with Lovenox. Additional Plan The patient is listed as prediabetic but his blood sugar was in the 200s and he was started on Decadron so I am going to do sliding scale insulin with Accu-Cheks AC and HS and check A1c. Subjective Date/time seen: 08/02/21 16:14 this is a 71-year-old male patient who lives at home with his . He is on vaccinated male patient who has a history of hypertension and hyperlipidemia. The patient tested positive on July 29. The patient presented to the emergency room with complaints of shortness of breath and confusion. Patient was more short of breath patient was brought to the emergency room via ambulance and he was alert orientated to person and place and could state who the president was. The patient is answering some questions but is still having some mental fogginess. Patient's is also sick with the similar symptoms. Head CT was read as cerebral atherosclerosis and chronic small-vessel ischemic changes of the cerebral white matter no acute intracranial findings. Chest CTA was read as the following.1. No definitive pulmonary embolism. Sensitivity decreased in the lobar pulmonary arteries and essentially nondiagnostic in many of the smaller subsegmental pulmonary arteries due to large amount of respiratory motion. 2. Diffuse bilateral lung disease with appearance favoring COVID pneumonia. Differential includes pulmonary edema. 3. Likely reactive mild mediastinal lymphadenopathy. The patient was given IV Tylenol, IV fluids Decadron and REM does severe in the emergency room. The patient is being admitted to inpatient status on the date of service 08/01/2021. Chief Complaint: Shortness of breath 08/02/2021 interval history patient with COVID-19 patient is is requiring high-flow oxygen being started on dexamethasone, remdesivir and baricinib, will continue to monitor patient oxygen requirement and further recommendation to follow. Review of Systems Review of Systems: All systems reviewed & are unremarkable except as noted in HPI and below Exam Narrative: Patient is comfortable, NAD HEENT: eyes are clear and none icteric non-rebreather mask LUNGS: normal respiratory effort ABD: distended Lower extremities: no edema SKIN: nonjaundiced Neuro: grossly intact. Objective Data Vital Signs Vital Signs: Vital Signs - 24 hr 08/01/21 16:42 08/01/21 17:08 08/01/21 17:15 Temperature 99.2 F Pulse Rate 78 84 Respiratory Rate 20 26 H Blood Pressure Pulse Oximetry 94 94 08/01/21 17:30 08/01/21 17:31 08/01/21 17:45 Temperature Pulse Rate 78 83 77 Respiratory Rate 26 H 25 H 24 H Blood Pressure 139/71 Pulse Oximetry 95 94 97 08/01/21 18:00 08/01/21 18:02 08/01/21 18:35 Te
[2021-08-02] MEDS: INSULIN ASPART (*BKC) 100 UNITS/ML SUB-Q (16:28)
[2021-08-02 16:57] LABS: Glucose Point of Care 220 mg/dl (65-105)
[2021-08-02 20:52] LABS: Glucose Point of Care 206 mg/dl (65-105)
[2021-08-02] MEDS: ENOXAPARIN 40 MG/0.4 ML SYRINGE SUB-Q (21:16)
[2021-08-02] MEDS: REMDESIVIR 100 MG/NS 250 ML 100 MG/250 ML BAG 250 MG IVPB (21:17)
[2021-08-03] VITALS (16 sets, daily range): BP systolic 127–158; BP diastolic 73–83; PULSE 60–110; RESP 18–28; TEMP 36.1–36.6; O2SAT 89–98
[2021-08-03] MEDS: ALBUTEROL SULFATE (*SP) AEROSOL 1 PUFF 2 PUFF INHALATION ×4 (02:15→21:24)
[2021-08-03 05:03] LABS: Basophils Percent Auto 0.3 % (0.2-1.2); Hematocrit 40.2 % (42.0-52.0); Immature Granulocyte Absolute 0.06 K/mm3 (0.00-0.031); Immature Granulocyte Percent A 0.5 % (0-0.5); Lymphocytes Absolute Auto 0.58 K/mm3 (0.9-3.2); Lymphocytes Percent Auto 5.2 % (18.3-44.2); Mean Corpuscular HGB Conc 34.8 g/dl (32-36); Mean Corpuscular Hemoglobin 31.3 pg (26-34); Mean Corpuscular Volume 89.7 fl (80-100); Mean Platelet Volume 11.3 fl (7.4-10.4); Monocytes Absolute Auto 0.6 K/mm3 (0.1-0.6); Neutrophils Absolute Auto 9.9 K/mm3 (1.3-6.7); Platelet Count Result 284 k/mm3 (150-375); Red Blood Count 4.48 M/mm3 (4.6-6.20); Red Cell Distribution Width 13.6 % (11.5-14.5); White Blood Count 11.1 K/mm3 (4.5-10.0)
[2021-08-03 05:23] LABS: Alanine Aminotransferase 42 U/L (4-50); Aspartate Amino Transferase 159 U/L (17-59); Estimated CRCL calculation 79 ml/min; Estimated Glomerular Filt Rate > 60
[2021-08-03 05:32] LABS: INR 1.3; Prothrombin Time 15.3 Seconds (11.1-14.7)
[2021-08-03 09:07] LABS: Glucose Point of Care 169 mg/dl (65-105)
[2021-08-03] MEDS: MULTIVITAMINS THERAPEUTIC TAB (*BKC) 1 TABLET PO (09:18)
[2021-08-03] MEDS: PYRIDOXINE HCL 50 MG TABLET 100 MG PO (09:18)
[2021-08-03] MEDS: ASCORBIC ACID 500 MG TABLET 1000 MG PO (09:18)
[2021-08-03] MEDS: LOSARTAN POTASSIUM 100 MG TABLET PO (09:18)
[2021-08-03] MEDS: CYANOCOBALAMIN 500 MCG TABLET PO (09:18)
[2021-08-03] MEDS: ATORVASTATIN 20 MG TABLET PO (09:18)
[2021-08-03] MEDS: MIRABEGRON 50 MG ER TABLET PO (09:19)
[2021-08-03] MEDS: ZINC SULFATE 220 MG CAPSULE PO (09:19)
[2021-08-03] MEDS: BARICITINIB 2 MG TABLET 4 MG PO (09:19)
[2021-08-03] MEDS: CHOLECALCIFEROL 1,000 UNITS TABLET 1000 UNITS PO (09:19)
[2021-08-03] MEDS: ASPIRIN 81 MG CHEWABLE TABLET PO (09:19)
[2021-08-03] MEDS: CELECOXIB 200 MG CAPSULE PO ×2 (09:20→16:50)
[2021-08-03] MEDS: FUROSEMIDE INJ 40 MG/4 ML VIAL IV PUSH (13:03)
[2021-08-03 13:08] LABS: Glucose Point of Care 185 mg/dl (65-105)
--- NOTE | 2021-08-03 16:26 | PM.IMPN ---
Progress Note: A&P Assessment and Plan (1) COVID-19: Code(s): U07.1 - COVID-19 Status: Acute Assessment and Plan: The patient is unvaccinated. He is on contact and droplet isolation. The patient is on remdesivir and Decadron as well as olumiant. Continue to monitor labs daily. Continue with albuterol inhaler. Mike. 08/02/2021 interval history patient with COVID-19 patient is is requiring high-flow oxygen being started on dexamethasone, remdesivir and baricinib, will continue to monitor patient oxygen requirement and further recommendation to follow. 08/03/2021 interval history patient with COVID-19 patient is is requiring high-flow oxygen being started on dexamethasone, remdesivir and baricinib, will lasix 40mg IV as it shown to improe oxygenation, will continue to monitor patient oxygen requirement and further recommendation to follow. (2) Essential (primary) hypertension: Code(s): I10 - Essential (primary) hypertension Status: Chronic Assessment and Plan: Continue with losartan and hydrochlorothiazide. Monitor renal function closely. (3) Mixed hyperlipidemia: Code(s): E78.2 - Mixed hyperlipidemia Status: Chronic Assessment and Plan: Continue with atorvastatin. (4) Arthritis: Code(s): M19.90 - Unspecified osteoarthritis, unspecified site Status: Chronic Assessment and Plan: Continue with pain medication Celebrex. Monitor for any signs and symptoms of bleeding since the patient is on DVT prophylaxis with Lovenox. Additional Plan The patient is listed as prediabetic but his blood sugar was in the 200s and he was started on Decadron so I am going to do sliding scale insulin with Accu-Cheks AC and HS and check A1c. Subjective Date/time seen: 08/03/21 16:26 08/03/2021 interval history patient with COVID-19 patient is is requiring high-flow oxygen being started on dexamethasone, remdesivir and baricinib, will lasix 40mg IV as it shown to improe oxygenation, will continue to monitor patient oxygen requirement and further recommendation to follow. Review of Systems Review of Systems: All systems reviewed & are unremarkable except as noted in HPI and below Exam Narrative: Patient is comfortable, NAD HEENT: eyes are clear and none icteric non-rebreather mask LUNGS: normal respiratory effort ABD: distended Lower extremities: no edema SKIN: nonjaundiced Neuro: grossly intact. Objective Data Vital Signs Vital Signs: Vital Signs - 24 hr 08/02/21 18:00 08/02/21 20:00 08/02/21 20:13 Temperature 97.8 F Pulse Rate 72 93 Respiratory Rate 22 H Blood Pressure 160/78 H Pulse Oximetry 99 97 08/02/21 20:16 08/02/21 22:00 08/03/21 00:00 Temperature 97.6 F Pulse Rate 90 70 64 Respiratory Rate 26 H 18 Blood Pressure 127/73 Pulse Oximetry 96 96 08/03/21 02:00 08/03/21 02:41 08/03/21 04:00 Temperature 97.8 F Pulse Rate 71 75 60 Respiratory Rate 26 H 28 H Blood Pressure 140/79 Pulse Oximetry 96 98 08/03/21 06:00 08/03/21 08:00 08/03/21 09:05 Temperature 97 F L Pulse Rate 61 66 Respiratory Rate 24 H Blood Pressure 150/81 H Pulse Oximetry 92 92 08/03/21 10:00 08/03/21 12:00 08/03/21 14:00 Temperature 97.8 F Pulse Rate 96 90 110 H Respiratory Rate 24 H Blood Pressure 153/83 H Pulse Oximetry 92 08/03/21 14:56 08/03/21 16:00 Temperature Pulse Rate Respiratory Rate Blood Pressure Pulse Oximetry 90 92 Intake/Output Intake/Output: Intake & Output 07/31/21 08/01/21 08/02/21 08/03/21 23:59 23:59 23:59 23:59 Intake Total 600 250 150 Output Total 2050 1075 Balance 479 -[phone] -382 Meds/Results Medications: Active Medications Generic Name Dose Route Start Last Admin Trade Name Freq PRN Reason Stop Dose Admin Hydrocodone Bitart/Acetaminophen 1 tab 08/01/21 21:20 08/02/21 21:17 Hydrocodone/Acetaminophen (*Crx) 5-325 Mg Tablet PO 1 tab Q6H PRN
[2021-08-03 17:13] LABS: Glucose Point of Care 194 mg/dl (65-105)
[2021-08-03 20:25] LABS: Glucose Point of Care 272 mg/dl (65-105)
[2021-08-03] MEDS: ALPRAZolam (*CRX) 0.5 MG TABLET PO (20:56)
[2021-08-03] MEDS: HYDROcodone/acetaminophen (*CRX) 5-325 MG TABLET 1 TAB PO (20:56)
[2021-08-03] MEDS: ENOXAPARIN 40 MG/0.4 ML SYRINGE SUB-Q (21:00)
[2021-08-03] MEDS: REMDESIVIR 100 MG/NS 250 ML 100 MG/250 ML BAG 250 MG IVPB (21:02)
[2021-08-03] MEDS: guaiFENesin/DEXTROMETHORPHAN 10 ML UDC PO (21:14)
[2021-08-04] VITALS (21 sets, daily range): BP systolic 138–176; BP diastolic 74–103; PULSE 77–126; RESP 21–41; TEMP 35.6–36.8; O2SAT 89–95
[2021-08-04] MEDS: HYDROcodone/acetaminophen (*CRX) 5-325 MG TABLET 1 TAB PO (02:30)
[2021-08-04] MEDS: ALPRAZolam (*CRX) 0.5 MG TABLET PO (02:30)
[2021-08-04] MEDS: ALBUTEROL SULFATE (*SP) AEROSOL 1 PUFF 2 PUFF INHALATION ×4 (03:15→20:36)
[2021-08-04 05:05] LABS: Basophils Percent Auto 0.3 % (0.2-1.2); Hematocrit 45.1 % (42.0-52.0); Hemoglobin 15.4 g/dL (14.0-18.0); Immature Granulocyte Absolute 0.18 K/mm3 (0.00-0.031); Immature Granulocyte Percent A 1.2 % (0-0.5); Lymphocytes Absolute Auto 0.73 K/mm3 (0.9-3.2); Lymphocytes Percent Auto 4.7 % (18.3-44.2); Mean Corpuscular HGB Conc 34.1 g/dl (32-36); Mean Corpuscular Hemoglobin 31.4 pg (26-34); Monocytes Absolute Auto 0.7 K/mm3 (0.1-0.6); Monocytes Percent Auto 4.2 % (2.6-8.5); Neutrophils Absolute Auto 13.9 K/mm3 (1.3-6.7); Neutrophils Percent Auto 89.6 % (45.5-73.1); Platelet Count Result 325 k/mm3 (150-375); Red Cell Distribution Width 13.3 % (11.5-14.5); White Blood Count 15.5 K/mm3 (4.5-10.0)
[2021-08-04 05:13] LABS: INR 1.2; Prothrombin Time 14.9 Seconds (11.1-14.7)
[2021-08-04 05:16] LABS: Alanine Aminotransferase 50 U/L (4-50); Aspartate Amino Transferase 199 U/L (17-59); Estimated CRCL calculation 70 ml/min; Estimated Glomerular Filt Rate > 60
[2021-08-04 08:51] LABS: Glucose Point of Care 166 mg/dl (65-105)
[2021-08-04 09:30] LABS: Anion Gap 9 mmol/L (8-16); Blood Urea Nitrogen 34 mg/dL (9-20); Calcium 9.3 mg/dL (8.4-10.2); Carbon Dioxide 23 mmol/L (22-30); Chloride 104 mmol/L (98-107); Estimated CRCL calculation 70 ml/min; Estimated Glomerular Filt Rate > 60; Glucose 182 mg/dL (65-110); Potassium 4.3 mmol/L (3.4-5.0); Sodium 136 mmol/L (137-145)
[2021-08-04] MEDS: BARICITINIB 2 MG TABLET 4 MG PO (09:48)
[2021-08-04] MEDS: MIRABEGRON 50 MG ER TABLET PO (09:48)
[2021-08-04] MEDS: ZINC SULFATE 220 MG CAPSULE PO (09:48)
[2021-08-04] MEDS: CYANOCOBALAMIN 500 MCG TABLET PO (09:48)
[2021-08-04] MEDS: ASCORBIC ACID 500 MG TABLET 1000 MG PO (09:48)
[2021-08-04] MEDS: CHOLECALCIFEROL 1,000 UNITS TABLET 1000 UNITS PO (09:49)
[2021-08-04] MEDS: PYRIDOXINE HCL 50 MG TABLET 100 MG PO (09:49)
[2021-08-04] MEDS: ATORVASTATIN 20 MG TABLET PO (09:49)
[2021-08-04] MEDS: CELECOXIB 200 MG CAPSULE PO (09:49)
[2021-08-04] MEDS: LOSARTAN POTASSIUM 100 MG TABLET PO (09:49)
[2021-08-04] MEDS: FUROSEMIDE INJ 40 MG/4 ML VIAL IV PUSH (09:49)
[2021-08-04] MEDS: ASPIRIN 81 MG CHEWABLE TABLET PO (09:49)
[2021-08-04] MEDS: MULTIVITAMINS THERAPEUTIC TAB (*BKC) 1 TABLET PO (09:49)
[2021-08-04 10:52] LABS: Base Excess ABG 0.3 mEq/l (+/-2.0); Fractional Inspired Oxygen 100 %; HCO3 ABG 22.7 mEq/l (22.0-26.0); Oxygen Content ABG 20.2 %vol (16.0-22.0); Oxygen Saturation ABG 91.9 % (95.0-100.0); Oxyhemoglobin 89.3 % THb (90.0-100.0); PCO2 ABG 31.1 mmHg (35.0-45.0); PO2 ABG 56.9 mmHg (80.0-100.0); PO2 FiO2 Ratio Arterial Blood 0.57 %; Site Drawn RIGHT RADIAL; Total Hemoglobin 16.1 g/dL (12.0-18.0); pH ABG 7.481 (7.350-7.450)
[2021-08-04 10:53] LABS: Device BIPAP; Modified Allen's Test Pass
[2021-08-04 10:54] LABS: Expiratory Pressure 8 cmH2O; Inspiratory Pressure 14 cmH2O
[2021-08-04] MEDS: INSULIN ASPART (*BKC) 100 UNITS/ML SUB-Q (12:49)
[2021-08-04 12:50] LABS: Glucose Point of Care 206 mg/dl (65-105)
[2021-08-04 16:54] LABS: Glucose Point of Care 205 mg/dl (65-105)
--- NOTE | 2021-08-04 17:28 | PM.IMPN ---
Progress Note: A&P Assessment and Plan (1) COVID-19: Code(s): U07.1 - COVID-19 Status: Acute Assessment and Plan: The patient is unvaccinated. He is on contact and droplet isolation. The patient is on remdesivir and Decadron as well as olumiant. Continue to monitor labs daily. Continue with albuterol inhaler. Robitussin. 08/02/2021 interval history patient with COVID-19 patient is is requiring high-flow oxygen being started on dexamethasone, remdesivir and baricinib, will continue to monitor patient oxygen requirement and further recommendation to follow. 08/03/2021 interval history patient with COVID-19 patient is is requiring high-flow oxygen being started on dexamethasone, remdesivir and baricinib, will lasix 40mg IV as it shown to improe oxygenation, will continue to monitor patient oxygen requirement and further recommendation to follow. 08/04/2021 interval history patient with COVID-19 patient is requiring high-flow oxygen being started on dexamethasone, remdesivir and baricinib, on 08/03 added lasix 40mg IV qd as it shown to improe oxygenation, will increase lasix IV 40mg BID will continue to monitor patient oxygen requirement and further recommendation to follow. will PT/OT evaluate the patient. (2) Essential (primary) hypertension: Code(s): I10 - Essential (primary) hypertension Status: Chronic Assessment and Plan: Continue with losartan and hydrochlorothiazide. Monitor renal function closely. (3) Mixed hyperlipidemia: Code(s): E78.2 - Mixed hyperlipidemia Status: Chronic Assessment and Plan: Continue with atorvastatin. (4) Arthritis: Code(s): M19.90 - Unspecified osteoarthritis, unspecified site Status: Chronic Assessment and Plan: Continue with pain medication Celebrex. Monitor for any signs and symptoms of bleeding since the patient is on DVT prophylaxis with Lovenox. Additional Plan The patient is listed as prediabetic but his blood sugar was in the 200s and he was started on Decadron so I am going to do sliding scale insulin with Accu-Cheks AC and HS and check A1c. Subjective Date/time seen: 08/04/21 17:28 08/02/2021 interval history patient with COVID-19 patient is is requiring high-flow oxygen being started on dexamethasone, remdesivir and baricinib, will continue to monitor patient oxygen requirement and further recommendation to follow. 08/03/2021 interval history patient with COVID-19 patient is is requiring high-flow oxygen being started on dexamethasone, remdesivir and baricinib, will lasix 40mg IV as it shown to improe oxygenation, will continue to monitor patient oxygen requirement and further recommendation to follow. 08/04/2021 interval history patient with COVID-19 patient is requiring high-flow oxygen being started on dexamethasone, remdesivir and baricinib, on 08/03 added lasix 40mg IV qd as it shown to improe oxygenation, will increase lasix IV 40mg BID will continue to monitor patient oxygen requirement and further recommendation to follow. will PT/OT evaluate the patient. Review of Systems Review of Systems: All systems reviewed & are unremarkable except as noted in HPI and below Exam Narrative: Patient is comfortable, NAD HEENT: eyes are clear and none icteric non-rebreather mask LUNGS: normal respiratory effort ABD: distended Lower extremities: no edema SKIN: nonjaundiced Neuro: grossly intact. Objective Data Vital Signs Vital Signs: Vital Signs - 24 hr 08/03/21 18:00 08/03/21 20:00 08/03/21 21:23 Temperature 97.6 F Pulse Rate 104 H 102 H Respiratory Rate 26 H Blood Pressure 158/80 H Pulse Oximetry 95 93 08/03/21 22:00 08/04/21 00:00 08/04/21 02:00 Temperature 96.0 F L Pulse Rate 87 107 H 86 Respiratory Rate 28 H Blood Pressure 155/75 H Pulse Oximetry 95 08/04/21 03:20 08/04/21 04:00 08/04/21 06:00 Temperature 96.8 F L Pulse Rate 77 78 78 Respira
[2021-08-04 21:03] LABS: Glucose Point of Care 141 mg/dl (65-105)
[2021-08-04] MEDS: ENOXAPARIN 40 MG/0.4 ML SYRINGE SUB-Q (21:14)
[2021-08-04] MEDS: OLANZapine 10 MG INJ VIAL 5 MG IM (22:19)
[2021-08-04] MEDS: WATER, STERILE FOR INJECTION 10 ML VIAL XX (22:19)
[2021-08-04] MEDS: LORazepam INJ (*CRX) 2 MG/ML VIAL 1 MG IV PUSH (23:15)
[2021-08-04] MEDS: REMDESIVIR 100 MG/NS 250 ML 100 MG/250 ML BAG 250 MG IVPB (23:29)
--- NOTE | 2021-08-04 23:33 | PCRCNOTE ---
Pt was experiencing major desaturation issues due to anxiety and activity. Nurse administered some medications to help him calm down. Sats were still in the low 80s. PEEP increased to 10 via verbal order from Dr. Granados.
[2021-08-05] VITALS (79 sets, daily range): BP systolic 69–136; BP diastolic 48–78; PULSE 48–148; RESP 24–103; TEMP 35.3–38.6; O2SAT 75–97
[2021-08-05] MEDS: LORazepam INJ (*CRX) 2 MG/ML VIAL 1 MG IV PUSH (02:13)
[2021-08-05] MEDS: MORPHINE SULFATE (*CRX) 2 MG/ML INJ (02:17)
[2021-08-05 03:07] LABS: Alveolar/Arterial O2 Gradient 639.8 mmHg; Base Excess ABG -0.9 mEq/l (+/-2.0); Carboxyhemoglobin 0.3 % THb (0-2.0); Fractional Inspired Oxygen 100 %; HCO3 ABG 21.2 mEq/l (22.0-26.0); Methemoglobin ABG 0.4 %THb (0-1.5); Oxygen Content ABG 18.8 %vol (16.0-22.0); PCO2 ABG 29.3 mmHg (35.0-45.0); PO2 FiO2 Ratio Arterial Blood 0.44 %; Reduced Hemoglobin 17.8 %THb (0-5.0); Total Hemoglobin 16.5 g/dL (12.0-18.0); pH ABG 7.478 (7.350-7.450)
[2021-08-05 03:14] LABS: Oxygen Saturation ABG 83.8 % (95.0-100.0); PO2 ABG 43.9 mmHg (80.0-100.0)
[2021-08-05 03:15] LABS: Device NON-INVASIVE VENT; Modified Allen's Test Pass; Non-Invasive Expiratory Pressure 10 CMH2O; Non-Invasive Inspiratory Pressure 14 CMH2O; Non-Invasive Vent Rate 18 /MIN; Oxyhemoglobin 81.5 % THb (90.0-100.0); Site Drawn RIGHT RADIAL
--- NOTE | 2021-08-05 03:27 | PC.NURSE ---
Addendum entered by Kaur Onofre, RN 08/05/21 03:34: Radha was called at 0250. Original Note: This patient combative and desatting on bipap. Given morphine and ativan per Dr Granados with improvement in restlessness but pt still tachypneic and oxygen saturation 73% per pulse oximetry. Called Radha to give an update too and make aware that we would need to proceed to intubation. is agreeable to intubation. Explained process of ICU care and reinforced need that if fails to improve she will need to consider trach, peg tube (both interventions explained) quality of life. expressed interest in ECMO. Explained need for approval for ECMO from accepting facility as well as bed opening and that wait times for beds can be lengthy. ABG being drawn in meantime to verify oxygenation saturation due to poor pleth.
--- NOTE | 2021-08-05 04:38 | PC.NURSE ---
This patient, Zenon Worrell, was transferred to [ICU bed 6] on 08/05/21 at 0400. Personal belongings sent with patient. Report given to [MORA Fulton]. Appropriate documentation sent with patient.
--- NOTE | 2021-08-05 04:51 | PC.NURSE ---
0428 updated on patient transfer to ICU6 for intubation and successful code blue.
[2021-08-05 05:06] LABS: Basophils Absolute Auto 0.1 K/mm3 (0.0-0.1); Basophils Percent Auto 0.6 % (0.2-1.2); Eosinophils Absolute Auto 0.1 K/mm3 (0-0.3); Eosinophils Percent Auto 0.4 % (0-4.4); Hematocrit 48.1 % (42.0-52.0); Immature Granulocyte Absolute 0.24 K/mm3 (0.00-0.031); Immature Granulocyte Percent A 1.5 % (0-0.5); Lymphocytes Absolute Auto 2.17 K/mm3 (0.9-3.2); Lymphocytes Percent Auto 13.8 % (18.3-44.2); Mean Corpuscular HGB Conc 33.3 g/dl (32-36); Mean Corpuscular Hemoglobin 31.4 pg (26-34); Mean Corpuscular Volume 94.3 fl (80-100); Mean Platelet Volume 11.4 fl (7.4-10.4); Monocytes Absolute Auto 0.4 K/mm3 (0.1-0.6); Monocytes Percent Auto 2.4 % (2.6-8.5); Neutrophils Absolute Auto 12.8 K/mm3 (1.3-6.7); Neutrophils Percent Auto 81.3 % (45.5-73.1); Platelet Count Result 292 k/mm3 (150-375); Red Cell Distribution Width 13.6 % (11.5-14.5); White Blood Count 15.7 K/mm3 (4.5-10.0)
[2021-08-05 05:22] LABS: INR 1.6
[2021-08-05 05:24] LABS: Magnesium 2.4 mg/dL (1.6-2.3); Phosphorus 6.1 mg/dL (2.5-4.5)
[2021-08-05 05:29] LABS: Albumin Level 3.3 g/dL (3.5-5.1); Alkaline Phosphatase 95 U/L (38-126); Anion Gap 15 mmol/L (8-16); Aspartate Amino Transferase 230 U/L (17-59); Bilirubin,Total 1.1 mg/dL (0.2-1.3); Blood Urea Nitrogen 44 mg/dL (9-20); Calcium 9.9 mg/dL (8.4-10.2); Carbon Dioxide 24 mmol/L (22-30); Chloride 103 mmol/L (98-107); Glucose 245 mg/dL (65-110); Potassium 4.3 mmol/L (3.4-5.0); Sodium 142 mmol/L (137-145)
[2021-08-05 05:31] LABS: Lactic Acid Reflex 8.6 mmol/L (0.7-2.1)
[2021-08-05 05:36] LABS: Alanine Aminotransferase 53 U/L (4-50)
--- NOTE | 2021-08-05 05:36 | WPDPROCEDUR ---
Procedures Central Line Placement Right Femoral: Central Line Date: 08/05/21 Central Line Time: 05:25 Performed Emergently - Given emergent patient condition, temporal constraints may have precluded informed consent.: Yes Patient Position: supine Patient placed on monitor/pulse ox: Yes Provider Prep: mask, sterile gown, sterile gloves, Max. sterile barrier precautions and cap Central line prep: 2% Chlorhexidine scrub Sterile US Technique with sterile gel/sterile probe covers: Yes Central line lumen inserted: triple Kazakh: 15 Length (cm): 15 Depth of Insertion (cm): 15 Post Procedure: sutured in place Patient tolerated procedure: well Complications: none Intubation Intubation Date: 08/05/21 Intubation Time: 04:16 A pre-procedural Time-Out was completed immediately before starting the procedure and confirmed: Patient Identification, Site, Procedure, Patient Position and the Availability of Requisite Equipment: Yes Sedative: etomidate Mg given: 15 Paralytic: rocuronium Mg given: 80 Laryngoscope: fiber optic video scope Assist device used: fiber optic device ET tube size: cuffed Tube secured depth (cm): 26 Tube secured location: lips Tube placement confirmation: visualized tube passing through cords, equal breath sounds bilaterally and confirmation by capnometry Patient tolerated procedure: other Intubation complications: hypoxia Additional comments: Patient with copious secretions.
--- NOTE | 2021-08-05 05:40 | PM.CCN ---
Critical Care Event Note Summary Code activated: Yes Narrative: Patient with severe respiratory distress and desaturation to 70% was immediately called and discussed ventilator support which she was agreeable to. Patient was transferred to intensive care unit. Subjective: Delirious Objective: Patient on BiPAP with respiratory rate in the 30s tachycardic heart rate 120-130 oxygen saturation 70% patient with progressively and rapidly deteriorating respiratory status. A/P 1. COVID 19 PNEUMONIA/ARDS /HYPOXIC RESPIRATORY FAILURE ACUTE: PATIENT TRANSFERRED TO INTENSIVE CARE UNIT PLACED ON VENTILATOR SUPPORT. CRITICAL CARE TIME 90+ MINUTES This case had a high probability of a clinically significant, sudden, or life threatening deterioration of this patient's condition which required my full and direct attention, intervention and personal management. Critical care time: 75 - 104 mins
--- NOTE | 2021-08-05 05:49 | PDCODEBLUE ---
Code Blue Note Code Blue Note Time Arrived at Code Blue: ALREADY IN THE ROOM Initial Rhythm on Arrival: PEA Airway Management: Pt intubated during resuscitation Chest Compressions: In process on arrival to bedside Result of Code Blue: ROSC Cardiac Rhythm Post Code: SVT Code Blue Summary: PATIENT WENT INTO PEA CHEST COMPRESSIONS WERE INITIATED IMMEDIATELY PATIENT REQUIRE FOR ROUNDS OF EPINEPHRINE 2 AMPS OF BICARB 1 AMP OF CALCIUM CHLORIDE. GLEN WAS ACHIEVED PATIENT WAS ALREADY ON VENTILATOR SUPPORT.
--- NOTE | 2021-08-05 05:57 | ECG_ITS ---
Measurements Intervals [place] Rate: 125 P: 59 UT: 168 QRS: 47 QRSD: 84 T: 46 QT: 336 QTc: 485 Interpretive Statements SINUS TACHYCARDIA INCOMPLETE RIGHT BUNDLE BRANCH BLOCK LOW QRS VOLTAGE IN PRECORDIAL LEADS BORDERLINE T WAVE ABNORMALITY- DIFFUSE LEADS BASELINE ARTIFACT- V3 ABNORMAL ECG Electronically Signed On 08-08-2021 13:54:55 ROTATING FIELD ASSEMBLER by Gerald Steel D.O.
[2021-08-05] MEDS: MIDAZOLAM 100MG/NS 100ML(*CRX) 100 MG/100 ML BAG IV CONT ×2 (06:03→22:10)
[2021-08-05] MEDS: FENTANYL 2,500MCG/NS250ML(*CRX 2,500 MCG/250 ML BAG 7.5 MCG IV CONT (06:04)
[2021-08-05] MEDS: NOREPINEPHRINE 8 MG/D5W 250 ML 8 MG/250 ML BAG 13.13 MG IV CONT (06:05)
[2021-08-05 06:21] LABS: Alveolar/Arterial O2 Gradient 588.5 mmHg; Base Excess ABG -7.6 mEq/l (+/-2.0); Carboxyhemoglobin 0.3 % THb (0-2.0); Fractional Inspired Oxygen 100 %; HCO3 ABG 23.1 mEq/l (22.0-26.0); Methemoglobin ABG 0.4 %THb (0-1.5); Oxygen Content ABG 19.1 %vol (16.0-22.0); PO2 ABG 55.8 mmHg (80.0-100.0); PO2 FiO2 Ratio Arterial Blood 0.56 %; Reduced Hemoglobin 22.2 %THb (0-5.0); Total Hemoglobin 17.7 g/dL (12.0-18.0)
[2021-08-05 06:24] LABS: Oxygen Saturation ABG 78.9 % (95.0-100.0); PCO2 ABG 68.7 mmHg (35.0-45.0); pH ABG 7.145 (7.350-7.450)
[2021-08-05 06:25] LABS: Arterial Blood Gas PEEP 14 cmH2O; Arterial Blood Gas Tidal Volume 350 ml; Arterial Blood Gas Vent Mode CMV; Arterial Blood Gas Ventilator rate 24 /MIN; Device VENTILATOR; Modified Allen's Test Pass; Oxyhemoglobin 77.1 % THb (90.0-100.0); Site Drawn RIGHT RADIAL
[2021-08-05] MEDS: methylPREDNISolone SOD SUCC 125 MG VIAL IV PUSH (06:28)
[2021-08-05] MEDS: MIDAZOLAM HCL (*CRX) 2 MG/2 ML VIAL 5 MG IV PUSH (06:34)
[2021-08-05] MEDS: SODIUM CHLORIDE 0.9% IV 1,000 ML 999 ML IV CONT ×2 (06:35→07:48)
[2021-08-05] MEDS: ALBUTEROL SULFATE (*SP) AEROSOL 1 PUFF 2 PUFF INHALATION (06:48)
[2021-08-05] MEDS: CISATRACURIUM BESYLATE 200 MG in DEXTROSE 5% 80 ML 8.81 ML IV CONT ×2 (06:49→16:38)
[2021-08-05] MEDS: CISATRACURIUM BESYLATE 20 MG/10 ML VIAL 9.8 MG IV PUSH (06:49)
[2021-08-05 07:05] LABS: Glucose Point of Care 182 mg/dl (65-105)
[2021-08-05] MEDS: RAPID SEQUENCE INTUBATION KIT 1 EACH (07:54)
[2021-08-05 08:01] LABS: Reflex Lactic Acid Yes or No Add Lactic
[2021-08-05 08:40] LABS: Lactic Acid 3.8 mmol/L (0.7-2.1)
[2021-08-05] MEDS: SODIUM BICARBONATE 8.4% 50 MEQ/50 ML SYRINGE 100 MEQ IV PUSH ×2 (09:05→14:56)
--- NOTE | 2021-08-05 09:11 | WPDCNINT ---
Assessment and Plan Assessment and plan (1) Acute respiratory failure: Code(s): J96.00 - Acute respiratory failure, unspecified whether with hypoxia or hypercapnia Status: Acute Assessment and Plan: Acute Respiratory failure secondary to COVID-19 pneumonia with gradual worsening to the hospital course. 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 Over time his sats improved to mid 80s IV bicarb given for respiratory acidosis to allow permissive hypercapnia I will start inhaled Flolan Continue full mechanical ventilation support to prevent hypoxemia/hypercarbia and end organ damage. Low tidal volume ventilation strategy to prevent volutrauma Bronchodilators (2) COVID-19: Code(s): U07.1 - COVID-19 Status: Acute Assessment and Plan: The patient is unvaccinated. He is on contact and droplet isolation. Continue remdesivir and Decadron started (08/02) Continue Baricitinib (started 08/02) (3) Mixed hyperlipidemia: Code(s): E78.2 - Mixed hyperlipidemia Status: Chronic Assessment and Plan: Hold atorvastatin due to elevated liver enzymes (4) NSTEMI (non-ST elevated myocardial infarction): Code(s): I21.4 - Non-ST elevation (NSTEMI) myocardial infarction Status: Acute Assessment and Plan: elevated troponin likely secondary to cardiac arrest and hypoxia EKG shows sinus tachycardia nonspecific changes continue aspirin Add therapeutic dose Lovenox check echocardiogram check serial troponin (5) Shock: Code(s): R57.9 - Shock, unspecified Status: Acute Assessment and Plan: mixed shock secondary to cardiac arrest, hypovolemia, positive pressure ventilation, sepsis conservative IV fluids due to COVID-19 pneumonia and ARDS 2 L bolus is being given continue Levophed and add vasopressin bicarb IV ordered for acidosis patient is already on dexamethasone. I will change to equal in stress dose steroids for additionalmineral corticoid activity (6) Hyperglycemia: Code(s): R73.9 - Hyperglycemia, unspecified Status: Acute Assessment and Plan: change sliding scale to every 4 hours and moderate level may need to add Lantus HbA1c 6.3 (7) Sepsis: Code(s): A41.9 - Sepsis, unspecified organism Status: Acute Assessment and Plan: on presentation patient was diagnosed with COVID-19 pneumonia and his procalcitonin level was low suggesting against bacterial infection overnight when patient was intubated and had a cardiac arrest he was started on empiric antibiotics and blood cultures were repeated his lactic acid is elevated but is this is likely secondary to shock from cardiac arrest and not assess early sepsis I will continue antibiotics for 48 hours until culture results are back and then deescalate if no other signs of infection (8) Metabolic acidosis: Code(s): E87.2 - Acidosis Status: Acute Assessment and Plan: lactic acidosis secondary to hypoxia and cardiac arrest, questionable sepsis patient was given 2 L of IV fluids monitor lactic acid level (9) Dietary counseling and surveillance: Code(s): Z71.3 - Dietary counseling and surveillance Status: Acute Assessment and Plan: start Glucerna 20 cc and advance slowly (10) Cardiac arrest: Code(s): I46.9 - Cardiac arrest, cause unspecified Status: Acute Assessment and Plan: primarily secondary to respiratory failure and hypoxia serial troponin and echocardiogram ordered telemetry monitoring (11) Encephalopathy: Code(s): G93.40 - Encephalopathy, unspecified Status: Acute
[2021-08-05] MEDS: EPOPROSTENOL SODIUM 0.5 MG VIAL 1 MG INHALATION ×3 (09:15→20:07)
[2021-08-05] MEDS: ATORVASTATIN 20 MG TABLET PO (09:29)
[2021-08-05] MEDS: ASPIRIN 81 MG CHEWABLE TABLET PO (09:29)
[2021-08-05] MEDS: ASCORBIC ACID 500 MG TABLET 1000 MG PO (09:29)
[2021-08-05] MEDS: MULTIVITAMINS THERAPEUTIC TAB (*BKC) 1 TABLET PO (09:29)
[2021-08-05] MEDS: PYRIDOXINE HCL 50 MG TABLET 100 MG PO (09:29)
[2021-08-05] MEDS: CHOLECALCIFEROL 1,000 UNITS TABLET 1000 UNITS PO (09:30)
[2021-08-05] MEDS: ZINC SULFATE 220 MG CAPSULE PO (09:31)
[2021-08-05] MEDS: CYANOCOBALAMIN 500 MCG TABLET PO (09:31)
[2021-08-05] MEDS: BARICITINIB 2 MG TABLET 4 MG PO (09:32)
[2021-08-05] MEDS: ENOXAPARIN 100 MG/ML SYRINGE SUB-Q ×2 (09:38→20:52)
[2021-08-05] MEDS: VASOPRESSIN INJ 100 UNITS in DEXTROSE 5% 95 ML IV CONT (09:38)
[2021-08-05 10:31] LABS: Estimated CRCL calculation 54 ml/min; Estimated Glomerular Filt Rate 59
--- NOTE | 2021-08-05 11:01 | PC.NURSE ---
Patient reached goal core temperature of 36 degrees celsius. Will maintain temperature for 24 hours, as per Dr. Harkins order.
[2021-08-05] MEDS: MINERAL OIL/WHITE PETROLATUM OINTMENT 1 APPLIC EACH EYE ×2 (11:15→20:52)
[2021-08-05] MEDS: INSULIN ASPART (*BKC) 100 UNITS/ML SUB-Q ×4 (11:20→20:57)
[2021-08-05 11:29] LABS: Glucose Point of Care 243 mg/dl (65-105)
[2021-08-05] MEDS: NOREPINEPHRINE 8 MG/D5W 250 ML 8 MG/250 ML BAG 39.38 MG IV CONT (12:01)
[2021-08-05 12:40] LABS: Lactic Acid Reflex 3.9 mmol/L (0.7-2.1)
[2021-08-05 12:41] LABS: Anion Gap 7 mmol/L (8-16); Blood Urea Nitrogen 51 mg/dL (9-20); Carbon Dioxide 30 mmol/L (22-30); Chloride 100 mmol/L (98-107); Estimated CRCL calculation 43 ml/min; Estimated Glomerular Filt Rate 46; Glucose 339 mg/dL (65-110); Potassium 5.5 mmol/L (3.4-5.0); Sodium 137 mmol/L (137-145)
[2021-08-05] MEDS: HYDROCORTISONE SODIUM SUCCINATE 100 MG/2 ML VIAL IV PUSH ×2 (13:42→21:00)
[2021-08-05 14:02] LABS: Glucose Point of Care 290 mg/dl (65-105)
[2021-08-05 14:26] LABS: Add Urine Microscopic? YES; Appearance Urine Cloudy (Clear); Bilirubin Urine Negative (Negative); Blood Urine 2+ (Negative); Color Urine Amber (Yellow); Glucose Urine UA 3+ mg/dL (Negative); Ketones Urine Negative (Negative); Leukocyte Esterase Ur Negative LEU/UL (Negative); Mucus Urine Rare /lpf; Nitrate Urine Negative (Negative); Protein Urine 2+ mg/dL (Negative); RBC Urine 21-50 /hpf (0-2); Specific Grav Ur 1.023 (1.001-1.035)
[2021-08-05] MEDS: INSULIN HUMAN REGULAR (*BKC) 100 UNITS/ML 10 UNITS IV PUSH (14:56)
[2021-08-05] MEDS: SODIUM POLYSTYRENE SULFONONATE 15 GM/60 ML BTL 30 GM FEED TUBE (14:56)
[2021-08-05] MEDS: INSULIN GLARGINE (*BKC) 100 UNITS/ML 15 UNITS SUB-Q (14:57)
[2021-08-05 16:28] LABS: Alveolar/Arterial O2 Gradient 559.1 mmHg; Base Excess ABG 1.9 mEq/l (+/-2.0); Fractional Inspired Oxygen 100 %; HCO3 ABG 32.2 mEq/l (22.0-26.0); Oxygen Content ABG 20.5 %vol (16.0-22.0); Oxygen Saturation ABG 94.5 % (95.0-100.0); PO2 ABG 86.9 mmHg (80.0-100.0); PO2 FiO2 Ratio Arterial Blood 0.87 %; Total Hemoglobin 15.5 g/dL (12.0-18.0)
[2021-08-05 16:31] LABS: PCO2 ABG 78.3 mmHg (35.0-45.0); pH ABG 7.232 (7.350-7.450)
[2021-08-05 16:32] LABS: Device VENTILATOR; Modified Allen's Test Pass; Site Drawn RIGHT RADIAL
[2021-08-05 16:33] LABS: Arterial Blood Gas PEEP 16 cmH2O; Arterial Blood Gas Pressure Support 0 cmH2O; Arterial Blood Gas Tidal Volume 350 ml; Arterial Blood Gas Vent Mode CMV; Arterial Blood Gas Ventilator rate 28 /MIN
[2021-08-05 17:57] LABS: Glucose Point of Care 307 mg/dl (65-105)
[2021-08-05] MEDS: NOREPINEPHRINE 8 MG/D5W 250 ML 8 MG/250 ML BAG 35.63 MG IV CONT (18:10)
[2021-08-05] MEDS: REMDESIVIR 100 MG/NS 250 ML 100 MG/250 ML BAG 250 MG IVPB (21:00)
[2021-08-05 23:29] LABS: Glucose Point of Care 278 mg/dl (65-105)
[2021-08-05] MEDS: FENTANYL 2,500MCG/NS250ML(*CRX 2,500 MCG/250 ML BAG 12.5 MCG IV CONT (23:39)
[2021-08-06] VITALS (92 sets, daily range): BP systolic 82–140; BP diastolic 53–79; PULSE 44–115; RESP 32–34; TEMP 33.5–37.2; O2SAT 92–98
[2021-08-06] MEDS: INSULIN ASPART (*BKC) 100 UNITS/ML SUB-Q ×6 (00:11→20:13)
[2021-08-06 00:17] LABS: Glucose Point of Care 345 mg/dl (65-105)
[2021-08-06] MEDS: NOREPINEPHRINE 8 MG/D5W 250 ML 8 MG/250 ML BAG 33.75 MG IV CONT (02:14)
[2021-08-06] MEDS: EPOPROSTENOL SODIUM 0.5 MG VIAL 1 MG INHALATION ×4 (02:23→20:02)
[2021-08-06] MEDS: HYDROCORTISONE SODIUM SUCCINATE 100 MG/2 ML VIAL IV PUSH ×3 (05:11→21:42)
[2021-08-06 05:20] LABS: Alveolar/Arterial O2 Gradient 524.7 mmHg; Base Excess ABG 3.3 mEq/l (+/-2.0); Carboxyhemoglobin 0.3 % THb (0-2.0); Fractional Inspired Oxygen 100 %; HCO3 ABG 31.4 mEq/l (22.0-26.0); Methemoglobin ABG 0.4 %THb (0-1.5); Oxygen Content ABG 20.7 %vol (16.0-22.0); Oxygen Saturation ABG 98.2 % (95.0-100.0); Oxyhemoglobin 96.8 % THb (90.0-100.0); PO2 ABG 125.9 mmHg (80.0-100.0); PO2 FiO2 Ratio Arterial Blood 1.26 %; Reduced Hemoglobin 2.5 %THb (0-5.0); Total Hemoglobin 15.1 g/dL (12.0-18.0); pH ABG 7.319 (7.350-7.450)
[2021-08-06 05:21] LABS: Arterial Blood Gas Vent Mode CMV; Arterial Blood Gas Ventilator rate 32 /MIN; Device VENTILATOR; Modified Allen's Test Pass; PCO2 ABG 62.4 mmHg (35.0-45.0); Site Drawn RIGHT RADIAL
[2021-08-06 05:22] LABS: Arterial Blood Gas PEEP 16 cmH2O; Arterial Blood Gas Tidal Volume 350 ml
[2021-08-06 05:41] LABS: Glucose Point of Care 326 mg/dl (65-105)
[2021-08-06 06:03] LABS: Hematocrit 41.9 % (42.0-52.0); Hemoglobin 13.8 g/dL (14.0-18.0); Mean Corpuscular HGB Conc 32.9 g/dl (32-36); Mean Corpuscular Hemoglobin 31.6 pg (26-34); Mean Corpuscular Volume 95.9 fl (80-100); Mean Platelet Volume 11.5 fl (7.4-10.4); Platelet Count Result 243 k/mm3 (150-375); Red Blood Count 4.37 M/mm3 (4.6-6.20); Red Cell Distribution Width 14.1 % (11.5-14.5); White Blood Count 16.8 K/mm3 (4.5-10.0)
[2021-08-06 06:20] LABS: Alanine Aminotransferase 81 U/L (4-50); Albumin Level 2.8 g/dL (3.5-5.1); Alkaline Phosphatase 92 U/L (38-126); Anion Gap 3 mmol/L (8-16); Aspartate Amino Transferase 276 U/L (17-59); Bilirubin,Total 1.5 mg/dL (0.2-1.3); Blood Urea Nitrogen 55 mg/dL (9-20); Calcium 7.8 mg/dL (8.4-10.2); Carbon Dioxide 36 mmol/L (22-30); Chloride 98 mmol/L (98-107); Estimated CRCL calculation 46 ml/min; Estimated Glomerular Filt Rate 50; Glucose 367 mg/dL (65-110); Magnesium 2.6 mg/dL (1.6-2.3); Potassium 4.2 mmol/L (3.4-5.0); Sodium 137 mmol/L (137-145)
[2021-08-06 07:42] LABS: Band Neutrophils Percent 36 % (0-6); Lymphocytes Absolute Manual 0.33 K/mm3 (1.1-4.5); Monocytes Absolute Manual 0.16 K/mm3 (0.1-0.90); Monocytes Percent Manual 1 % (3-9); Neutrophils Absolute Manual 16.29 K/mm3 (1.3-6.7); Neutrophils Percent Manual 61 % (46-73); Total Cells Counted 100
[2021-08-06 07:43] LABS: Platelet Estimate Adequate (Adequate)
--- NOTE | 2021-08-06 08:54 | WPDINTPN ---
Progress Note: A&P Assessment and Plan (1) Acute respiratory failure: Code(s): J96.00 - Acute respiratory failure, unspecified whether with hypoxia or hypercapnia Status: Acute Assessment and Plan: Acute Respiratory failure secondary to COVID-19 pneumonia with gradual worsening to the hospital course. 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 decrease FiO2 to 80% Patient is chemically paralyzed and placed in prone position. 08/05 IV bicarb given for respiratory acidosis to allow permissive hypercapnia Continue inhaled Flolan. Currently in prone position which will be continued until TTM protocol is completed Continue full mechanical ventilation support to prevent hypoxemia/hypercarbia and end organ damage. Low tidal volume ventilation strategy to prevent volutrauma Bronchodilators (2) COVID-19: Code(s): U07.1 - COVID-19 Status: Acute Assessment and Plan: The patient is unvaccinated. He is on contact and droplet isolation. Continue Decadron started (08/02). He has completed course of remdesivir Continue Baricitinib (started 08/02) (3) Mixed hyperlipidemia: Code(s): E78.2 - Mixed hyperlipidemia Status: Chronic Assessment and Plan: Hold atorvastatin due to elevated liver enzymes (4) NSTEMI (non-ST elevated myocardial infarction): Code(s): I21.4 - Non-ST elevation (NSTEMI) myocardial infarction Status: Acute Assessment and Plan: elevated troponin likely secondary to cardiac arrest and hypoxia EKG shows sinus tachycardia nonspecific changes. Troponin continues to increase. Continue aspirin and therapeutic dose Lovenox Echocardiogram is pending Continue to check serial troponin until plateaued consult cardiology (5) Shock: Code(s): R57.9 - Shock, unspecified Status: Acute Assessment and Plan: mixed shock secondary to cardiac arrest, hypovolemia, positive pressure ventilation, sepsis conservative IV fluids due to COVID-19 pneumonia and ARDS 08/05 2 L bolus given continue Levophed and wean off vasopressin. Dexamethasone switched to equivalent stress dose steroids for additional mineralocorticoid activity (6) Hyperglycemia: Code(s): R73.9 - Hyperglycemia, unspecified Status: Acute Assessment and Plan: change sliding scale to every 4 hours and moderate level add Lantus HbA1c 6.3 (7) Sepsis: Code(s): A41.9 - Sepsis, unspecified organism Status: Acute Assessment and Plan: on presentation patient was diagnosed with COVID-19 pneumonia and his procalcitonin level was low suggesting against bacterial infection overnight when patient was intubated and had a cardiac arrest he was started on empiric antibiotics and blood cultures were repeated his lactic acid is elevated but is this is likely secondary to shock from cardiac arrest and not assess early sepsis I will continue antibiotics for 48 hours until culture results are back and then deescalate if no other signs of infection (8) Metabolic acidosis: Code(s): E87.2 - Acidosis Status: Acute Assessment and Plan: lactic acidosis secondary to hypoxia and cardiac arrest, questionable sepsis patient was given 2 L of IV fluids lactic acid level improved (9) Dietary counseling and surveillance: Code(s): Z71.3 - Dietary counseling and surveillance Status: Acute Assessment and Plan: continue Glucerna 20 cc and advance slowly (10) Cardiac arrest: Code(s): I46.9 - Cardiac arrest, cause unspecified Status: Acute Assessment and Plan: primarily secondary to respiratory failure and hypoxia serial troponin and ec
[2021-08-06] MEDS: CISATRACURIUM BESYLATE 200 MG in DEXTROSE 5% 80 ML IV CONT (09:29)
[2021-08-06] MEDS: INSULIN GLARGINE (*BKC) 100 UNITS/ML 30 UNITS SUB-Q (09:33)
[2021-08-06 09:47] LABS: Glucose Point of Care 273 mg/dl (65-105)
[2021-08-06] MEDS: ENOXAPARIN 100 MG/ML SYRINGE SUB-Q ×2 (09:48→20:13)
[2021-08-06] MEDS: BARICITINIB 2 MG TABLET PO (09:48)
[2021-08-06] MEDS: ASCORBIC ACID 500 MG TABLET 1000 MG PO (09:49)
[2021-08-06] MEDS: ASPIRIN 81 MG CHEWABLE TABLET PO (09:49)
[2021-08-06] MEDS: PYRIDOXINE HCL 50 MG TABLET 100 MG PO (09:49)
[2021-08-06] MEDS: CYANOCOBALAMIN 500 MCG TABLET PO (09:50)
[2021-08-06] MEDS: MINERAL OIL/WHITE PETROLATUM OINTMENT 1 APPLIC EACH EYE ×2 (09:50→20:14)
[2021-08-06] MEDS: CHOLECALCIFEROL 1,000 UNITS TABLET 1000 UNITS PO (09:50)
[2021-08-06] MEDS: PANTOPRAZOLE SODIUM IV 40 MG VIAL IV PUSH (09:51)
[2021-08-06] MEDS: ZINC SULFATE 220 MG CAPSULE PO (09:51)
[2021-08-06] MEDS: MULTIVITAMINS THERAPEUTIC TAB (*BKC) 1 TABLET PO (09:51)
[2021-08-06 09:59] LABS: Prothrombin Time 21.7 Seconds (11.1-14.7)
[2021-08-06] MEDS: VASOPRESSIN INJ 100 UNITS in DEXTROSE 5% 95 ML IV CONT (12:44)
[2021-08-06] MEDS: NOREPINEPHRINE 8 MG/D5W 250 ML 8 MG/250 ML BAG 24.38 MG IV CONT (13:04)
[2021-08-06 13:15] LABS: Glucose Point of Care 335 mg/dl (65-105)
--- NOTE | 2021-08-06 14:17 | PC.NURSE ---
Initiated rewarming at 1100. Will continue to monitor closely.
--- NOTE | 2021-08-06 15:22 | PC.NURSE ---
Patient warmed to 37.7 C at 1500, warming discontinued at that time.
--- NOTE | 2021-08-06 15:41 | PM.CNCAR ---
Assessment and Plan Assessment and plan (1) Cardiac arrest: Code(s): I46.9 - Cardiac arrest, cause unspecified Status: Acute Assessment and Plan: This is predominantly secondary to respiratory failure and pulseless electrical activity at the time of intubation from hypoxia. Echocardiogram was ordered and pending (2) Elevated troponin: Code(s): R77.8 - Other specified abnormalities of plasma proteins Status: Acute Assessment and Plan: Secondary to cardiopulmonary arrest as above. Prolonged code before return of spontaneous circulation. Echo pending. Will repeat an EKG. Obviously, supportive care for now and no invasive cardiac workup needed. Continue aspirin, enoxaparin. (3) Acute respiratory failure: Code(s): J96.00 - Acute respiratory failure, unspecified whether with hypoxia or hypercapnia Status: Acute Assessment and Plan: Secondary to COVID (4) COVID-19: Code(s): U07.1 - COVID-19 Status: Acute (5) Encephalopathy: Code(s): G93.40 - Encephalopathy, unspecified Status: Acute Assessment and Plan: Likely anoxic injury from arrest History of Present Illness History of Present Illness Consult date/time: 08/06/21 15:41 Requesting physician: Fahad Harkins MD Consult reason: Other (Elevated troponin, COVID, pulmonary arrest) Reason For Visit: covid pneumonia,respiratory failure Narrative: Date of service 08/06/2021 Reason for consultation: Elevated troponin Requesting provider: Dr. Harkins History: Zenon Worrell is a 71 year old male who is unvaccinated against COVID-19 who unfortunately did test positive for COVID in mid July. He present to the emergency department of shortness of breath and confusion. He was started on dexamethasone, remdesivir and baricitinib. He was given some furosemide also. His respiratory status further declined. He was placed on BiPAP but unfortunately further declined and rapid response was called because of severe respiratory distress and saturations in the 70s. He was transferred to ICU for intubation. During intubation, the patient went into PEA requiring multiple rounds of epinephrine (4) as well as bicarbonate and calcium. There was a prolonged resuscitation. Eventual return of spontaneous circulation. Because of the cardiopulmonary arrest, troponins were drawn which were elevated. Cardiology consultation was requested. Review of Systems Review of Systems: All systems reviewed & are unremarkable except as noted in HPI and below ROS unobtainable: Yes unobtainable due to endotracheal tube and unobtainable due to medical condition Constitutional: Constitutional: Reports weakness Eyes: Eyes: Denies blurry vision ENT: Denies epistaxis Cardiovascular: Cardiovascular: Denies chest pain Respiratory: Respiratory: Reports dyspnea Gastrointestinal: Gastrointestinal: Denies hematochezia Genitourinary: Genitourinary: Denies hematuria Musculoskeletal: Musculoskeletal: Reports stiffness Integumentary/Breasts: Skin/Breast: Denies erythema Neurologic: Reports confusion Psychiatric: Psychiatric: Reports confusion Endocrine: Endocrine: Denies excessive sweating Hematologic/Lymphatic: Hematologic/Lymphatic: Denies easy bleeding Allergic/Immunologic: Allergic/Immunologic: Denies lip swelling PMFSH Past Medical History Medical History Arthritis Essential (primary) hypertension Mixed hyperlipidemia Prediabetes Surgical History Surgical History H/O elbow surgery Bilaterally H/O toe surgery Bilateral toe implants History of cervical spinal surgery History of lumbar surgery History of shoulder surgery Bilaterally History of surgery on wrist Status post cervical spinal arthrodesis Family History Family History Fathe
--- NOTE | 2021-08-06 15:54 | ECG_ITS ---
Measurements Intervals [place] Rate: 71 P: 49 WV: 177 QRS: 16 QRSD: 84 T: 209 QT: 462 QTc: 503 Interpretive Statements SINUS RHYTHM INCOMPLETE RIGHT BUNDLE BRANCH BLOCK LOW QRS VOLTAGE IN PRECORDIAL LEADS MINIMAL Q WAVES- ANTEROLAT/HIGH LAT LEADS T WAVE ABNORMALITY IN LAT/HIGH LAT LEADS- CONSIDER ISCHEMIA ABNORMAL ECG Electronically Signed On 08-07-2021 7:54:16 AUTOMATED PROCESS OPERATOR by Gerald Steel D.O.
[2021-08-06] MEDS: METOCLOPRAMIDE HCL 10 MG/10 ML SOLN UDC FEED TUBE ×2 (17:48→23:34)
[2021-08-06 18:18] LABS: Glucose Point of Care 257 mg/dl (65-105)
[2021-08-06 20:28] LABS: Glucose Point of Care 259 mg/dl (65-105)
[2021-08-06] MEDS: FENTANYL 2,500MCG/NS250ML(*CRX 2,500 MCG/250 ML BAG 10 MCG IV CONT (21:41)
[2021-08-06] MEDS: MIDAZOLAM 100MG/NS 100ML(*CRX) 100 MG/100 ML BAG IV CONT (23:35)
[2021-08-06] MEDS: NOREPINEPHRINE 8 MG/D5W 250 ML 8 MG/250 ML BAG 18.75 MG IV CONT (23:50)
[2021-08-06 23:58] LABS: Glucose Point of Care 223 mg/dl (65-105)
[2021-08-07] VITALS (60 sets, daily range): BP systolic 88–152; BP diastolic 50–77; PULSE 54–114; RESP 30–32; TEMP 36.2–37.3; O2SAT 58–98; BMI 31.9
--- NOTE | 2021-08-07 | ECHO_ITS ---
Patient Info Name: Zenon Worrell Age: 71 years : 1950 Gender: Male Ht: 72 in Wt: 215 lbs BSA: 2.25 m2 HR: 95 bpm BP: 103 / 54 mmHg Heart Rhythm: Sinus Rhythm Technical Quality: Fair Exam Date: 08/07/2021 4:25 PM Exam Location: [facility] Pulmonary Patient Status: Inpatient Admit Date: 08/01/2021 Staff Ordering Physician: Fahad Harkins MD Java Swing Developer: Roula Rodriguez RDCS Attending Provider: Aby Gonzales MD Exam Type: CA echo doppler color flow Study Info Indications - NSTEMI Complete two-dimensional, color flow and Doppler transthoracic echocardiogram is performed. Summary 1. Complete two-dimensional, color flow and Doppler transthoracic echocardiogram is performed. 2. Technically difficult study, suboptimal image quality; patient on vent. Normal LV size, mild LVH; normal global LV systolic function, ejection fraction about 55%. Grade 2 diastolic dysfunction. Mitral valve leaflets mildly thickened, no significant MR. Aortic valve is not well visualized but appears to be calcified; moderate aortic stenosis with valve area of 1.4 cm2 on Doppler; maximum velocity 2.7 m/sec, mean gradient 14 mmHg. Mild pulmonary hypertension, RVSP 46 mmHg. Dilated IVC without respiratory collapse consistent with elevated right atrial pressure. Recommend further evaluation of aortic valve if/when clinically appropriate. Left Ventricle Left ventricular chamber dimension is normal. Left ventricular systolic function is normal, estimated at 55-60%. There is mildly increased left ventricular wall thickness. The left ventricular diastolic function is grade II diastolic dysfunction. Right Ventricle Right ventricular chamber dimension is normal. Right ventricular systolic function is normal. Left Atria Left atrial chamber dimension is not well visualized. Right Atria Right atrial chamber dimension is not well visualized. Aortic Valve The aortic valve is not well visualized. There is moderate aortic valve stenosis with a peak velocity of 270 cm/s, mean gradient of 14 mmHg, and aortic valve area of 1.4 cm2. Pulmonic Valve The pulmonic valve is not well visualized. Mitral Valve The mitral valve has normal leaflets. There is no mitral valve regurgitation. Tricuspid Valve The tricuspid valve leaflets are not well visualized. Mild pulmonary hypertension, estimated pulmonary arterial systolic pressure is 46 mmHg. Pericardium/Pleural The pericardium appears normal. There is trivial pericardial effusion. Inferior Vena Cava Dilated inferior vena cava with no collapse upon inspiration consistent with elevated right atrial pressure, 15 mmHg. Aorta The aortic root size at the sinus of Valsalva is normal. Left Ventricular Outflow Tract Name Value Normal LVOT 2D LVOT Diameter 1.9 cm LVOT Doppler LVOT Peak Gradient 6 mmHg LVOT Mean Gradient 3 mmHg LVOT VTI 19 cm LVOT VTI/AV VTI Ratio 0.5 LVOT Stroke Volume 56 ml LVOT CO 3.2 l/min
[2021-08-07] MEDS: INSULIN ASPART (*BKC) 100 UNITS/ML SUB-Q ×4 (00:30→20:18)
[2021-08-07] MEDS: EPOPROSTENOL SODIUM 0.5 MG VIAL 1 MG INHALATION ×4 (02:07→19:59)
[2021-08-07 03:58] LABS: Basophils Absolute Auto 0.1 K/mm3 (0.0-0.1); Basophils Percent Auto 0.5 % (0.2-1.2); Hematocrit 42.2 % (42.0-52.0); Hemoglobin 13.6 g/dL (14.0-18.0); Immature Granulocyte Absolute 0.29 K/mm3 (0.00-0.031); Immature Granulocyte Percent A 1.4 % (0-0.5); Mean Corpuscular HGB Conc 32.2 g/dl (32-36); Mean Corpuscular Hemoglobin 31.6 pg (26-34); Mean Corpuscular Volume 97.9 fl (80-100); Mean Platelet Volume 11.5 fl (7.4-10.4); Monocytes Absolute Auto 0.5 K/mm3 (0.1-0.6); Monocytes Percent Auto 2.5 % (2.6-8.5); Neutrophils Absolute Auto 18.9 K/mm3 (1.3-6.7); Neutrophils Percent Auto 93.6 % (45.5-73.1); Nucleated Red Blood Cells Perc 0.1 % (0.0-0.2); Platelet Count Result 268 k/mm3 (150-375); Red Blood Count 4.31 M/mm3 (4.6-6.20); Red Cell Distribution Width 14.6 % (11.5-14.5); White Blood Count 20.2 K/mm3 (4.5-10.0)
[2021-08-07 04:40] LABS: Acanthocytes 1+ (NORMAL); Platelet Estimate Adequate (Adequate)
[2021-08-07 04:41] LABS: Alanine Aminotransferase 99 U/L (4-50); Albumin Level 2.8 g/dL (3.5-5.1); Alkaline Phosphatase 102 U/L (38-126); Anion Gap 3 mmol/L (8-16); Aspartate Amino Transferase 299 U/L (17-59); Blood Urea Nitrogen 68 mg/dL (9-20); Calcium 7.7 mg/dL (8.4-10.2); Carbon Dioxide 39 mmol/L (22-30); Chloride 99 mmol/L (98-107); Estimated CRCL calculation 44 ml/min; Estimated Glomerular Filt Rate 40; Glucose 172 mg/dL (65-110); Potassium 5.1 mmol/L (3.4-5.0); Sodium 141 mmol/L (137-145)
[2021-08-07 04:49] LABS: Alveolar/Arterial O2 Gradient 346.8 mmHg; Base Excess ABG 7.6 mEq/l (+/-2.0); Carboxyhemoglobin 0.1 % THb (0-2.0); Fractional Inspired Oxygen 75 %; HCO3 ABG 38.7 mEq/l (22.0-26.0); Methemoglobin ABG 0.7 %THb (0-1.5); Oxygen Content ABG 19.6 %vol (16.0-22.0); Oxygen Saturation ABG 95.3 % (95.0-100.0); Oxyhemoglobin 95.1 % THb (90.0-100.0); PO2 ABG 92.3 mmHg (80.0-100.0); PO2 FiO2 Ratio Arterial Blood 1.23 %; Reduced Hemoglobin 4.1 %THb (0-5.0); Total Hemoglobin 14.6 g/dL (12.0-18.0)
[2021-08-07 04:50] LABS: pH ABG 7.251 (7.350-7.450)
[2021-08-07 04:52] LABS: Device VENTILATOR; Modified Allen's Test Pass; Site Drawn RIGHT RADIAL
[2021-08-07] MEDS: CISATRACURIUM BESYLATE 200 MG in DEXTROSE 5% 80 ML 5.87 ML IV CONT (04:52)
[2021-08-07 04:53] LABS: Arterial Blood Gas PEEP 16 cmH2O; Arterial Blood Gas Tidal Volume 350 ml; Arterial Blood Gas Vent Mode CMV; Arterial Blood Gas Ventilator rate 32 /MIN
[2021-08-07] MEDS: METOCLOPRAMIDE HCL 10 MG/10 ML SOLN UDC FEED TUBE ×4 (05:01→23:35)
[2021-08-07] MEDS: HYDROCORTISONE SODIUM SUCCINATE 100 MG/2 ML VIAL IV PUSH ×3 (05:02→20:19)
[2021-08-07] MEDS: SODIUM BICARBONATE 8.4% 50 MEQ/50 ML SYRINGE 100 MEQ IV PUSH (06:38)
[2021-08-07] MEDS: SODIUM CHLORIDE 0.9% IV 1,000 ML 100 ML IV CONT (08:32)
[2021-08-07] MEDS: hetaSTARCH 6%/NACL 500 ML 250 ML IV CONT (08:37)
[2021-08-07] MEDS: INSULIN GLARGINE (*BKC) 100 UNITS/ML 50 UNITS SUB-Q (08:51)
[2021-08-07] MEDS: MULTIVITAMINS THERAPEUTIC TAB (*BKC) 1 TABLET PO (08:51)
[2021-08-07] MEDS: CHOLECALCIFEROL 1,000 UNITS TABLET 1000 UNITS PO (08:51)
[2021-08-07] MEDS: CYANOCOBALAMIN 500 MCG TABLET PO (08:51)
[2021-08-07] MEDS: PANTOPRAZOLE SODIUM IV 40 MG VIAL IV PUSH (08:51)
[2021-08-07] MEDS: ASPIRIN 81 MG CHEWABLE TABLET PO (08:51)
[2021-08-07] MEDS: PYRIDOXINE HCL 50 MG TABLET 100 MG PO (08:51)
[2021-08-07] MEDS: ZINC SULFATE 220 MG CAPSULE PO (08:51)
[2021-08-07] MEDS: ENOXAPARIN 100 MG/ML SYRINGE SUB-Q ×2 (08:51→20:18)
[2021-08-07] MEDS: ASCORBIC ACID 500 MG TABLET 1000 MG PO (08:51)
[2021-08-07] MEDS: MINERAL OIL/WHITE PETROLATUM OINTMENT 1 APPLIC EACH EYE ×2 (08:52→20:19)
--- NOTE | 2021-08-07 09:07 | WPDINTPN ---
Progress Note: A&P Assessment and Plan (1) Acute respiratory failure: Code(s): J96.00 - Acute respiratory failure, unspecified whether with hypoxia or hypercapnia Status: Acute Assessment and Plan: Acute Respiratory failure secondary to COVID-19 pneumonia with gradual worsening during the hospital course. 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 FiO2 of 75% -patient on Flolan -sedated with fentanyl and Versed infusion, patient also on Nimbex for neuromuscular blockade hand ventilator synchrony -patient has been placed in prone position since 08/05/2021 -Continue full mechanical ventilation support to prevent hypoxemia/hypercarbia and end organ damage. -Low tidal volume ventilation strategy to prevent volutrauma - Bronchodilators on hold due to patient on Flolan (2) COVID-19: Code(s): U07.1 - COVID-19 Status: Acute Assessment and Plan: COVID-19 positive on 07/29/2021. Presented to the hospital with worsening shortness of breath on 08/01/2021 and was intubated on 08/05/2021 - The patient is unvaccinated. -contact, droplet, airborne precautions and isolation. -dexamethasone started on 08/02, was switched to hydrocortisone for stress dose steroids on 08/05 - He has completed course of remdesivir, will re-dose Remdesivir starting 08/07/2020 - Continue Baricitinib (started 08/02) -continue vitamin-C, vitamin-D, zinc (3) Mixed hyperlipidemia: Code(s): E78.2 - Mixed hyperlipidemia Status: Chronic Assessment and Plan: Hold atorvastatin due to elevated liver enzymes (4) NSTEMI (non-ST elevated myocardial infarction): Code(s): I21.4 - Non-ST elevation (NSTEMI) myocardial infarction Status: Acute Assessment and Plan: elevated troponin likely secondary to cardiac arrest and hypoxia - EKG shows sinus tachycardia nonspecific changes. Elevated troponin -appreciate cardiology evaluation recommendation, recommended continue aspirin and therapeutic enoxaparin -Echocardiogram is pending (5) Shock: Code(s): R57.9 - Shock, unspecified Status: Acute Assessment and Plan: mixed shock secondary to cardiac arrest, hypovolemia, positive pressure ventilation, sepsis - conservative IV fluids due to COVID-19 pneumonia and ARDS - 08/05 2 L bolus given - continue Levophed and vasopressin, will maintain mean arterial pressures greater than 70 mmHg for better head organ perfusion Dexamethasone switched to equivalent stress dose steroids for additional mineralocorticoid activity (6) Hyperglycemia: Code(s): R73.9 - Hyperglycemia, unspecified Status: Acute Assessment and Plan: Continue Accu-Cheks and sliding scale insulin q.4 hours Increase Lantus HbA1c 6.3 (7) Sepsis: Code(s): A41.9 - Sepsis, unspecified organism Status: Acute Assessment and Plan: on presentation patient was diagnosed with COVID-19 pneumonia and his procalcitonin level was low suggesting against bacterial infection - when patient was intubated and had a cardiac arrest he was started on empiric antibiotics and blood cultures were repeated - his lactic acid is elevated but is this is likely secondary to shock from cardiac arrest and not assess early sepsis -continue vancomycin and Zosyn until cultures are resulted and and will deescalate if no other signs of infection (8) Metabolic acidosis: Code(s): E87.2 - Acidosis Status: Acute Assessment and Plan: lactic acidosis secondary to hypoxia and cardiac arrest, questionable sepsis patient was given 2 L of IV fluids lactic acid level improved -08/07: will give 1 L IV fluids moved 10 hours
[2021-08-07 09:17] LABS: Glucose Point of Care 142 mg/dl (65-105)
[2021-08-07] MEDS: REMDESIVIR 100 MG/NS 250 ML 100 MG/250 ML BAG 250 MG IVPB (10:41)
[2021-08-07 11:15] LABS: Creatine Kinase 1054 U/L (55-170)
[2021-08-07 11:20] LABS: INR 1.8
--- NOTE | 2021-08-07 12:01 | P.CONNP_ITS ---
Assessment and Plan Assessment and plan (1) Acute kidney injury: Code(s): N17.9 - Acute kidney failure, unspecified Status: Acute Assessment and Plan: * multifactorial etiology: * cardiac arrest * shock * prerena factors/hypovolemia * hypoxia * reasonable urine output at this time * however, creatinine is rising * evaluation to date: * renal ultrasound normal * CPK mildly elevated (but not enough to affect kidney function) * urine electrolytes pending * not opposed to fluid trial today * follow repeat labs and UOP (2) Acute respiratory failure: Code(s): J96.00 - Acute respiratory failure, unspecified whether with hypoxia or hypercapnia Status: Acute Assessment and Plan: * secondary to COVID-19 pneumonia * on full mechanical ventilator support * also requiring paralytics in addition to sedation * prone position as tolerated * continue supportive care (3) Cardiac arrest: Code(s): I46.9 - Cardiac arrest, cause unspecified Status: Acute Assessment and Plan: * primarily secondary to respiratory failure and hypoxia * serial troponin and echocardiogram ordered * telemetry monitoring (4) Pneumonia due to COVID-19 virus: Code(s): U07.1 - COVID-19; J12.82 - Pneumonia due to coronavirus disease 2018 Status: Acute Assessment and Plan: * COVID-19 positive on 07/29/2021 * unvaccinated * decadron started on 08/02 but switched to hydrocortisone for stress dose steroids on 08/05 * s/p remdesivir; redosing started on 08/07/21 * also on baricitinib (started 08/02) (5) Shock: Code(s): R57.9 - Shock, unspecified Status: Acute Assessment and Plan: * due to cardiac arrest, hypovolemia, positive pressure ventilation, sepsis * minimize IVFs due to COVID-19 pneumonia and ARDS * vasopressor therapy to maintain MAP * continue stress dose steroids (6) Metabolic acidosis: Code(s): E87.2 - Acidosis Status: Acute Assessment and Plan: * due to lactic acidosis from hypoxia and cardiac arrest * DENA/ARF contributing as well * improving with current intervention Will continue to follow. History of Present Illness Reason for Consult Consult date: 08/07/21 Reason for consult: acute renal failure Chief Complaint Chief complaint: covid pneumonia,respiratory failure History of Present Illness Narrative: All of the information I have obtained is from review of the electronic medical record as well as discussion with the physicians and nurses involved in his care as the patient is unable to provide me with any meaningful history as he is currently intubated and on mechanical ventilation. The patient is a 71-year-old male with a past medical history as out lined below who presented to [facility] Emergency room approximately a week ago with complaints of shortness of breath in association with confusion. Workup and evaluation emergency room demonstrated the patient to be hemodynamically stable but in mild respiratory distress. Imaging studies including a head CT did not demonstrate any acute intracranial findings to explain his confusion but he did undergo a chest CT scan which was significant for no evidence of a pulmonary embolism but diffuse bilateral lung disease highly suggestive of COVID pneumonia along with possible pulmonary edema. Labs on admission were unrevealing as it was his respiratory status that was the issue/problem. He was subsequent admitted to the hospital with COVID pneumonia and was started
--- NOTE | 2021-08-07 12:01 | PM.CNNEP ---
Assessment and Plan Assessment and plan (1) Acute kidney injury: Code(s): N17.9 - Acute kidney failure, unspecified Status: Acute Assessment and Plan: multifactorial etiology: cardiac arrest shock prerena factors/hypovolemia hypoxia reasonable urine output at this time however, creatinine is rising evaluation to date: renal ultrasound normal CPK mildly elevated (but not enough to affect kidney function) urine electrolytes pending not opposed to fluid trial today follow repeat labs and UOP (2) Acute respiratory failure: Code(s): J96.00 - Acute respiratory failure, unspecified whether with hypoxia or hypercapnia Status: Acute Assessment and Plan: secondary to COVID-19 pneumonia on full mechanical ventilator support also requiring paralytics in addition to sedation prone position as tolerated continue supportive care (3) Cardiac arrest: Code(s): I46.9 - Cardiac arrest, cause unspecified Status: Acute Assessment and Plan: primarily secondary to respiratory failure and hypoxia serial troponin and echocardiogram ordered telemetry monitoring (4) Pneumonia due to COVID-19 virus: Code(s): U07.1 - COVID-19; J12.82 - Pneumonia due to coronavirus disease 2018 Status: Acute Assessment and Plan: COVID-19 positive on 07/29/2021 unvaccinated decadron started on 08/02 but switched to hydrocortisone for stress dose steroids on 08/05 s/p remdesivir; redosing started on 08/07/21 also on baricitinib (started 08/02) (5) Shock: Code(s): R57.9 - Shock, unspecified Status: Acute Assessment and Plan: due to cardiac arrest, hypovolemia, positive pressure ventilation, sepsis minimize IVFs due to COVID-19 pneumonia and ARDS vasopressor therapy to maintain MAP continue stress dose steroids (6) Metabolic acidosis: Code(s): E87.2 - Acidosis Status: Acute Assessment and Plan: due to lactic acidosis from hypoxia and cardiac arrest DENA/ARF contributing as well improving with current intervention Will continue to follow. History of Present Illness Reason for Consult Consult date: 08/07/21 Reason for consult: acute renal failure Chief Complaint Chief complaint: covid pneumonia,respiratory failure History of Present Illness Narrative: All of the information I have obtained is from review of the electronic medical record as well as discussion with the physicians and nurses involved in his care as the patient is unable to provide me with any meaningful history as he is currently intubated and on mechanical ventilation. The patient is a 71-year-old male with a past medical history as outlined below who presented to [facility] Emergency room approximately a week ago with complaints of shortness of breath in association with confusion. Workup and evaluation emergency room demonstrated the patient to be hemodynamically stable but in mild respiratory distress. Imaging studies including a head CT did not demonstrate any acute intracranial findings to explain his confusion but he did undergo a chest CT scan which was significant for no evidence of a pulmonary embolism but diffuse bilateral lung disease highly suggestive of COVID pneumonia along with possible pulmonary edema. Labs on admission were unrevealing as it was his respiratory status that was the issue/problem. He was subsequent admitted to the hospital with COVID pneumonia and was started on a combination of Decadron, REM does have ear, as well as baricitinib. He was also given IV diuretics due to the concerns of pulmonary edema playing a role with his respiratory status as well. Unfortunately, despite all conservative therapy, his respiratory status continued to decline with worsening hypoxia following admission. He was subsequently transitioned to BiPAP therapy in the hopes that this would stabilize his respiratory status
[2021-08-07 12:08] LABS: Alveolar/Arterial O2 Gradient 390.6 mmHg; Fractional Inspired Oxygen 75 %; HCO3 ABG 35.4 mEq/l (22.0-26.0); Oxygen Content ABG 19.3 %vol (16.0-22.0); Oxygen Saturation ABG 97.3 % (95.0-100.0); Oxyhemoglobin 96.2 % THb (90.0-100.0); PO2 FiO2 Ratio Arterial Blood 1.21 %; Total Hemoglobin 14.2 g/dL (12.0-18.0); pH ABG 7.468 (7.350-7.450)
[2021-08-07 12:09] LABS: Modified Allen's Test Pass; Site Drawn RIGHT RADIAL
[2021-08-07 12:10] LABS: Arterial Blood Gas PEEP 14 cmH2O; Arterial Blood Gas Tidal Volume 470 ml; Arterial Blood Gas Vent Mode CMV; Arterial Blood Gas Ventilator rate 30 /MIN; Device VENTILATOR
[2021-08-07] MEDS: BARICITINIB 2 MG TABLET PO (13:06)
[2021-08-07] MEDS: CENTRAL LINE FLUSH 10 ML IV PUSH ×3 (13:06→20:19)
[2021-08-07] MEDS: NOREPINEPHRINE 8 MG/D5W 250 ML 8 MG/250 ML BAG 16.88 MG IV CONT (13:18)
[2021-08-07 13:37] LABS: Glucose Point of Care 261 mg/dl (65-105)
--- NOTE | 2021-08-07 14:13 | PM.PNCARD ---
Progress Note: A&P Additional Plan Troponin elevation in this 71-year-old man with COVID pneumonia requiring intubation and ventilator support. There should troponin rise was related to the hypoxemia not a primary cardiac event. We can reduce his Lovenox back to prophylactic dosage. No other cardiac recommendations. Were going to sign off of his case at this time since there is no intention of conducting an ischemia workup in this setting. If our services are needed again please let me know. Bobby Kessler MD [facility] Subjective Date/time seen: Date of service: 08/07/21 14:13 Interval history: 71-year-old man who had a cardiac arrest while he was having a respiratory a event during attempted intubation because of COVID pneumonia. This resulted in a troponin rise which prompted consultation for our service. No other evidence of a primary cardiac event. He is currently intubated sedated in the ICU in the prone position. Patient has therapeutic dose of Lovenox ordered for this reason. Exam Const: Other: Obese sedated patient intubated in prone position HENMT: Mouth: Yes moist mucous membranes Eyes: Sclera: sclerae normal Neck: Neck: supple Other: Cannot assess JVD in the prone position Resp: Other: Few scattered rhonchi otherwise remarkably clear breath sounds Cardio: Rate: regular rate Rhythm: regular rhythm Other: No audible murmur or gallop GI: GI Palp: Yes Soft to palpation Neuro: Other: Sedated Extrem: Other: No edema excellent distal pulses Objective Data Vital Signs Vital Signs: Vital Signs - 24 hr 08/06/21 15:00 08/06/21 15:13 08/06/21 15:16 Temperature 37.2 C Pulse Rate 77 78 77 Respiratory Rate 32 H 32 H Blood Pressure 123/67 123/67 Pulse Oximetry 97 08/06/21 15:17 08/06/21 15:18 08/06/21 16:00 Temperature Pulse Rate 77 77 75 Respiratory Rate 32 H 32 H 32 H Blood Pressure 123/67 99/53 L Pulse Oximetry 95 08/06/21 16:07 08/06/21 16:25 08/06/21 16:27 Temperature Pulse Rate 76 74 74 Respiratory Rate 32 H 32 H Blood Pressure 99/53 L 99/53 L Pulse Oximetry 94 08/06/21 17:48 08/06/21 17:49 08/06/21 17:50 Temperature Pulse Rate 80 74 74 Respiratory Rate 32 H 32 H Blood Pressure 116/58 L Pulse Oximetry 08/06/21 17:51 08/06/21 17:52 08/06/21 18:00 Temperature 36.7 C Pulse Rate 74 74 76 Respiratory Rate 32 H 32 H Blood Pressure 99/53 L 99/53 L 116/61 Pulse Oximetry 96 08/06/21 19:48 08/06/21 20:00 08/06/21 20:06 Temperature 35.3 C L Pulse Rate 71 71 72 Respiratory Rate 32 H Blood Pressure 130/65 Pulse Oximetry 93 95 08/06/21 20:07 08/06/21 20:21 08/06/21 21:41 Temperature Pulse Rate 72 71 88 Respiratory Rate 32 H 34 H 32 H Blood Pressure 130/65 Pulse Oximetry 95 08/06/21 21:47 08/06/21 21:55 08/06/21 22:00 Temperature 35.8 C L Pulse Rate 88 92 Respiratory Rate 32 H Blood Pressure 134/66 129/65 Pulse Oximetry 96 08/06/21 22:10 08/06/21 22:11 08/06/21 23:35 Temperature Pulse Rate 111 H 111 H 115 H Respiratory Rate 32 H 32 H Blood Pressure Pulse Oximetry 96 96 08/06/21 23:50 08/07/21 00:00 08/07/21 00:10 Temperature 36.2 C L Pulse Rate 114 H 90 114 H Respiratory Rate 32 H 32 H Blood Pressure 94/54 L 100/58 L Pulse Oximetry 96 97 08/07/21 00:50 08/07/21 02:00 08/07/21 02:11 Temperature 36.8 C Pulse Rate 93 92 Respiratory Rate 32 H 32 H Blood Pressure 103/57 L Pulse Oximetry 97 97 97 08/07/21 02:12 08/07/21 04:00 08/07/21 04:21 Temperature 37.0 C Pulse Rate 92 88 92 Respiratory Rate 32 H Blood Pressure 103/54 L Pulse Oximetry 97 97 97 08/07/21 04:22 08/07/21 05:58 08/07/21 06:00 Temperature Pulse Rate 92 95 95 Respiratory Rate 32 H 32 H Blood Pressure 109/57 L Pulse Oximetry 97 97 97 08/07/21 08:00 08/07/21 08:10 08/07/21 08:17 Temperature 37.3 C Pulse Rate 94 93 84 Respiratory Rate 30 H 30 H Blood Pressure 106/56
[2021-08-07] MEDS: VASOPRESSIN INJ 100 UNITS in DEXTROSE 5% 95 ML IV CONT (14:56)
[2021-08-07] MEDS: FENTANYL 2,500MCG/NS250ML(*CRX 2,500 MCG/250 ML BAG 12.5 MCG IV CONT (16:07)
[2021-08-07] MEDS: CISATRACURIUM BESYLATE 200 MG in DEXTROSE 5% 80 ML 11.75 ML IV CONT (17:47)
[2021-08-07 18:27] LABS: Glucose Point of Care 292 mg/dl (65-105)
[2021-08-07 20:41] LABS: Glucose Point of Care 267 mg/dl (65-105)
[2021-08-07 21:10] LABS: Creatinine Urine 126.8 mg/dL
[2021-08-07 21:14] LABS: Potassium Urine Random 48.8 meq/L
[2021-08-07 21:26] LABS: Eosinophil Urine None Seen % (None Seen)
[2021-08-07 21:45] LABS: Sodium Urine Random 5 meq/L
[2021-08-07 23:42] LABS: Glucose Point of Care 245 mg/dl (65-105)
[2021-08-08] VITALS (35 sets, daily range): BP systolic 117–151; BP diastolic 57–74; PULSE 49–100; RESP 30; TEMP 36.2–37.3; O2SAT 54–100
[2021-08-08] MEDS: CISATRACURIUM BESYLATE 200 MG in DEXTROSE 5% 80 ML 11.75 ML IV CONT ×2 (01:02→09:39)
[2021-08-08] MEDS: INSULIN ASPART (*BKC) 100 UNITS/ML SUB-Q ×2 (01:04→20:07)
[2021-08-08] MEDS: EPOPROSTENOL SODIUM 0.5 MG VIAL 1 MG INHALATION ×4 (02:29→18:30)
[2021-08-08] MEDS: NOREPINEPHRINE 8 MG/D5W 250 ML 8 MG/250 ML BAG 18.75 MG IV CONT (02:56)
[2021-08-08 04:15] LABS: Alveolar/Arterial O2 Gradient 539.2 mmHg; Base Excess ABG 6.8 mEq/l (+/-2.0); Carboxyhemoglobin 0.3 % THb (0-2.0); Fractional Inspired Oxygen 95 %; HCO3 ABG 31.8 mEq/l (22.0-26.0); Methemoglobin ABG 0.5 %THb (0-1.5); Oxygen Content ABG 16.6 %vol (16.0-22.0); Oxygen Saturation ABG 97.2 % (95.0-100.0); Oxyhemoglobin 95.6 % THb (90.0-100.0); PCO2 ABG 46.8 mmHg (35.0-45.0); PO2 ABG 90.8 mmHg (80.0-100.0); PO2 FiO2 Ratio Arterial Blood 0.96 %; Reduced Hemoglobin 3.6 %THb (0-5.0); Total Hemoglobin 12.3 g/dL (12.0-18.0)
[2021-08-08 04:17] LABS: Device VENTILATOR; Modified Allen's Test Pass; Site Drawn RIGHT RADIAL
[2021-08-08 04:18] LABS: Arterial Blood Gas PEEP 14 cmH2O; Arterial Blood Gas Tidal Volume 470 ml; Arterial Blood Gas Vent Mode CMV; Arterial Blood Gas Ventilator rate 30 /MIN
[2021-08-08 04:46] LABS: Hematocrit 35.4 % (42.0-52.0); Hemoglobin 11.6 g/dL (14.0-18.0); Mean Corpuscular HGB Conc 32.8 g/dl (32-36); Mean Corpuscular Hemoglobin 31.6 pg (26-34); Mean Corpuscular Volume 96.5 fl (80-100); Mean Platelet Volume 11.8 fl (7.4-10.4); Platelet Count Result 255 k/mm3 (150-375); Red Blood Count 3.67 M/mm3 (4.6-6.20); Red Cell Distribution Width 14.5 % (11.5-14.5); White Blood Count 23.5 K/mm3 (4.5-10.0)
[2021-08-08] MEDS: MIDAZOLAM 100MG/NS 100ML(*CRX) 100 MG/100 ML BAG IV CONT (04:54)
[2021-08-08 04:56] LABS: INR 1.7; Prothrombin Time 19.1 Seconds (11.1-14.7)
[2021-08-08] MEDS: CENTRAL LINE FLUSH 10 ML IV PUSH ×3 (05:03→20:46)
[2021-08-08] MEDS: HYDROCORTISONE SODIUM SUCCINATE 100 MG/2 ML VIAL IV PUSH ×3 (05:03→20:46)
[2021-08-08] MEDS: METOCLOPRAMIDE HCL 10 MG/10 ML SOLN UDC FEED TUBE ×3 (05:03→23:54)
[2021-08-08 05:23] LABS: Alanine Aminotransferase 81 U/L (4-50); Albumin Level 2.2 g/dL (3.5-5.1); Alkaline Phosphatase 116 U/L (38-126); Aspartate Amino Transferase 228 U/L (17-59); Bilirubin,Total 0.9 mg/dL (0.2-1.3); Blood Urea Nitrogen 77 mg/dL (9-20); Calcium 7.3 mg/dL (8.4-10.2); Carbon Dioxide > 40 mmol/L (22-30); Chloride 100 mmol/L (98-107); Estimated CRCL calculation 53 ml/min; Estimated Glomerular Filt Rate 50; Glucose 199 mg/dL (65-110); Phosphorus 2.4 mg/dL (2.5-4.5); Potassium 4.1 mmol/L (3.4-5.0); Sodium 141 mmol/L (137-145)
[2021-08-08 05:34] LABS: Anisocytosis 1+ (NORMAL); Band Neutrophils Percent 12 % (0-6); Hypochromasia 1+ (NORMAL); Lymphocytes Absolute Manual 0.47 K/mm3 (1.1-4.5); Neutrophils Absolute Manual 23.03 K/mm3 (1.3-6.7); Neutrophils Percent Manual 86 % (46-73); Platelet Estimate Adequate (Adequate); Total Cells Counted 100
[2021-08-08 08:17] LABS: Glucose Point of Care 166 mg/dl (65-105)
[2021-08-08] MEDS: REMDESIVIR 100 MG/NS 250 ML 100 MG/250 ML BAG 250 MG IVPB (09:07)
[2021-08-08] MEDS: INSULIN GLARGINE (*BKC) 100 UNITS/ML 60 UNITS SUB-Q (09:08)
[2021-08-08] MEDS: ENOXAPARIN 100 MG/ML SYRINGE SUB-Q ×2 (09:19→20:46)
[2021-08-08] MEDS: ASPIRIN 81 MG CHEWABLE TABLET PO (09:37)
[2021-08-08] MEDS: CHOLECALCIFEROL 1,000 UNITS TABLET 1000 UNITS PO (09:38)
[2021-08-08] MEDS: ASCORBIC ACID 500 MG TABLET 1000 MG PO (09:38)
[2021-08-08 09:46] LABS: Vancomycin Trough 6.9 ug/mL (10.0-20.0)
[2021-08-08] MEDS: CYANOCOBALAMIN 500 MCG TABLET PO (09:46)
[2021-08-08] MEDS: MINERAL OIL/WHITE PETROLATUM OINTMENT 1 APPLIC EACH EYE ×2 (09:46→20:08)
[2021-08-08] MEDS: MULTIVITAMINS THERAPEUTIC TAB (*BKC) 1 TABLET PO (09:47)
[2021-08-08] MEDS: PANTOPRAZOLE SODIUM IV 40 MG VIAL IV PUSH (09:48)
[2021-08-08] MEDS: ZINC SULFATE 220 MG CAPSULE PO (09:48)
[2021-08-08] MEDS: PYRIDOXINE HCL 50 MG TABLET 100 MG PO (09:48)
--- NOTE | 2021-08-08 09:58 | WPDINTPN ---
Progress Note: A&P Assessment and Plan (1) Acute respiratory failure: Code(s): J96.00 - Acute respiratory failure, unspecified whether with hypoxia or hypercapnia Status: Acute Assessment and Plan: Acute Respiratory failure secondary to COVID-19 pneumonia with gradual worsening during the hospital course. 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 -will continue to place patient in prone position 16-18 hours a day -Continue full mechanical ventilation support to prevent hypoxemia/hypercarbia and end organ damage. -Low tidal volume ventilation strategy to prevent volutrauma - Bronchodilators on hold due to patient on Flolan (2) COVID-19: Code(s): U07.1 - COVID-19 Status: Acute Assessment and Plan: COVID-19 positive on 07/29/2021. Presented to the hospital with worsening shortness of breath on 08/01/2021 and was intubated on 08/05/2021 - The patient is unvaccinated. -contact, droplet, airborne precautions and isolation. -dexamethasone started on 08/02, was switched to hydrocortisone for stress dose steroids on 08/05 - He has completed course of remdesivir, will re-dose Remdesivir starting 08/07/2020 - Continue Baricitinib (started 08/02) -continue vitamin-C, vitamin-D, zinc (3) Mixed hyperlipidemia: Code(s): E78.2 - Mixed hyperlipidemia Status: Chronic Assessment and Plan: Hold atorvastatin due to elevated liver enzymes (4) NSTEMI (non-ST elevated myocardial infarction): Code(s): I21.4 - Non-ST elevation (NSTEMI) myocardial infarction Status: Acute Assessment and Plan: elevated troponin likely secondary to cardiac arrest and hypoxia - EKG shows sinus tachycardia nonspecific changes. Elevated troponin -appreciate cardiology evaluation recommendation, recommended continue aspirin and therapeutic enoxaparin -Echocardiogram is pending (5) Shock: Code(s): R57.9 - Shock, unspecified Status: Acute Assessment and Plan: mixed shock secondary to cardiac arrest, hypovolemia, positive pressure ventilation, sepsis - conservative IV fluids due to COVID-19 pneumonia and ARDS - 08/05 2 L bolus given - continue Levophed and vasopressin, will maintain mean arterial pressures greater than 70 mmHg for better head organ perfusion Dexamethasone switched to equivalent stress dose steroids for additional mineralocorticoid activity (6) Hyperglycemia: Code(s): R73.9 - Hyperglycemia, unspecified Status: Acute Assessment and Plan: Continue Accu-Cheks and sliding scale insulin q.4 hours Increase Lantus HbA1c 6.3 (7) Sepsis: Code(s): A41.9 - Sepsis, unspecified organism Status: Acute Assessment and Plan: on presentation patient was diagnosed with COVID-19 pneumonia and his procalcitonin level was low suggesting against bacterial infection - when patient was intubated and had a cardiac arrest he was started on empiric antibiotics and blood cultures were repeated - his lactic acid is elevated but is this is likely secondary to shock from cardiac arrest and not assess early sepsis -continue vancomycin and Zosyn until cultures are resulted and and will deescalate if no other signs of infection (8) Metabolic acidosis: Code(s): E87.2 - Acidosis Status: Acute Assessment and Plan: lactic acidosis secondary to hypoxia and cardiac arrest, questionable sepsis patient was given 2 L of IV fluids lactic acid level improved -08/07: will give 1 L IV flu
[2021-08-08] MEDS: BARICITINIB 2 MG TABLET PO (10:05)
[2021-08-08] MEDS: FENTANYL 2,500MCG/NS250ML(*CRX 2,500 MCG/250 ML BAG 12.5 MCG IV CONT (10:40)
--- NOTE | 2021-08-08 10:49 | PCNFU ---
Nutrition Follow-Up Complete: Inadequate Oral intake as related to mechanical ventilation as evidenced by NPO. Goal: Meet estimated nutritional needs Patient is progressing towards goal. We will continue current goal. Pt current nutrition is Glucerna 1.2 at 20 ml/hr over 22 hours. Last recorded weight is 106.4 kg, stable Bowel Motility:+ BM reported today. Labs Reviewed: Glu 199, Cr 1.4,GFR 50, BUN 77,Alb 2.2 Meds Noted: Fentanyl, Versed, Levophed, Protonix, Zosyn, Vit C, Vit D, Vit B12, Remdesivir, Flolan, Nimbex, MVI Skin: WNL Additional Notes: Patient remains on mechanical vent and tube tube feedings of Glucerna 1.2 at 20 ml/hr, goal rate 75 ml/hr ordered. Free water flush 30 ml q 4 hours. Goal rate of tube feeding providing 1980 kcals/99 gms protein/1328 ml water, meeting 90% caloric needs and 77% protein needs. Will monitor in ICU rounds and reassessing every Saturday and Saturday.
--- NOTE | 2021-08-08 11:11 | P.PNNP_ITS ---
Progress Note: A&P Assessment and Plan (1) Acute kidney injury: Code(s): N17.9 - Acute kidney failure, unspecified Status: Acute Assessment and Plan: * doing a bit better * multifactorial etiology: * cardiac arrest * shock * prerena factors/hypovolemia * hypoxia * reasonable urine output at this time * evaluation to date: * renal ultrasound normal * CPK mildly elevated (but not enough to affect kidney function) * urine electrolytes suggest prerenal azotemia * follow repeat labs and UOP (2) Acute respiratory failure: Code(s): J96.00 - Acute respiratory failure, unspecified whether with hypoxia or hypercapnia Status: Acute Assessment and Plan: * secondary to COVID-19 pneumonia * on full mechanical ventilator support * also requiring paralytics in addition to sedation * prone position as tolerated * continue supportive care (3) Cardiac arrest: Code(s): I46.9 - Cardiac arrest, cause unspecified Status: Acute Assessment and Plan: * primarily secondary to respiratory failure and hypoxia * serial troponin and echocardiogram noted * Cardiology following * telemetry monitoring (4) Pneumonia due to COVID-19 virus: Code(s): U07.1 - COVID-19; J12.82 - Pneumonia due to coronavirus disease 2018 Status: Acute Assessment and Plan: * COVID-19 positive on 07/29/2021 * unvaccinated * decadron started on 08/02 but switched to hydrocortisone for stress dose steroids on 08/05 * s/p remdesivir; redosing started on 08/07/21 * also on baricitinib (started 08/02) (5) Shock: Code(s): R57.9 - Shock, unspecified Status: Acute Assessment and Plan: * due to cardiac arrest, hypovolemia, positive pressure ventilation, sepsis * minimize IVFs due to COVID-19 pneumonia and ARDS * vasopressor therapy to maintain MAP * continue stress dose steroids (6) Metabolic acidosis: Code(s): E87.2 - Acidosis Status: Acute Assessment and Plan: * due to lactic acidosis from hypoxia and cardiac arrest * DENA/ARF contributing as well * improving with current interventions Will continue to follow. Subjective Date/time seen: 08/08/21 11:11 No real significant change since I last saw him -- remains intubated/sed ated/paralyzed and on full mechanical ventilator support; remains vasopressors (levophed and vasopressin) to maintain MAP; urine output doing better after IVF challenge yesterday with improvement in creatinine/renal function; no other acute issues/events overnight or earlier this AM. Exam Narrative: General: ill appearing male intubated/sedated/paralyzed Heart: normal S1 and S2; no rub Lungs: coarse breath sounds throughout Abdomen: soft, nontender, nondistended, positive bowel sounds Extremities: no cyanosis or clubbing; no edema Skin: warm and dry Objective Data Vital Signs Vital Signs: Vital Signs Temp Pulse Resp BP Pulse Ox 08/08/21 10:40 53 L 30 H 08/08/21 10:00 51 L 30 H 138/68 96 08/08/21 09:39 53 L 30 H 137/74 08/08/21 08:35 93 30 H 53 L 08/08/21 08:00 36.5 C 51 L 30 H 136/72 97 08/08/21 06:18 100 30 H 54 L 08/08/21 06:16 54 L 100 08/08/21 06:00 54 L 30 H 123/71 100 08/08/21 05:57 53 L 08/08/21 04:01 56 L 30 H 97 08/08/21 04:
--- NOTE | 2021-08-08 11:11 | PM.PNNEP ---
Progress Note: A&P Assessment and Plan (1) Acute kidney injury: Code(s): N17.9 - Acute kidney failure, unspecified Status: Acute Assessment and Plan: doing a bit better multifactorial etiology: cardiac arrest shock prerena factors/hypovolemia hypoxia reasonable urine output at this time evaluation to date: renal ultrasound normal CPK mildly elevated (but not enough to affect kidney function) urine electrolytes suggest prerenal azotemia follow repeat labs and UOP (2) Acute respiratory failure: Code(s): J96.00 - Acute respiratory failure, unspecified whether with hypoxia or hypercapnia Status: Acute Assessment and Plan: secondary to COVID-19 pneumonia on full mechanical ventilator support also requiring paralytics in addition to sedation prone position as tolerated continue supportive care (3) Cardiac arrest: Code(s): I46.9 - Cardiac arrest, cause unspecified Status: Acute Assessment and Plan: primarily secondary to respiratory failure and hypoxia serial troponin and echocardiogram noted Cardiology following telemetry monitoring (4) Pneumonia due to COVID-19 virus: Code(s): U07.1 - COVID-19; J12.82 - Pneumonia due to coronavirus disease 2018 Status: Acute Assessment and Plan: COVID-19 positive on 07/29/2021 unvaccinated decadron started on 08/02 but switched to hydrocortisone for stress dose steroids on 08/05 s/p remdesivir; redosing started on 08/07/21 also on baricitinib (started 08/02) (5) Shock: Code(s): R57.9 - Shock, unspecified Status: Acute Assessment and Plan: due to cardiac arrest, hypovolemia, positive pressure ventilation, sepsis minimize IVFs due to COVID-19 pneumonia and ARDS vasopressor therapy to maintain MAP continue stress dose steroids (6) Metabolic acidosis: Code(s): E87.2 - Acidosis Status: Acute Assessment and Plan: due to lactic acidosis from hypoxia and cardiac arrest DENA/ARF contributing as well improving with current interventions Will continue to follow. Subjective Date/time seen: 08/08/21 11:11 No real significant change since I last saw him -- remains intubated/sedated/paralyzed and on full mechanical ventilator support; remains vasopressors (levophed and vasopressin) to maintain MAP; urine output doing better after IVF challenge yesterday with improvement in creatinine/renal function; no other acute issues/events overnight or earlier this AM. Exam Narrative: General: ill appearing male intubated/sedated/paralyzed Heart: normal S1 and S2; no rub Lungs: coarse breath sounds throughout Abdomen: soft, nontender, nondistended, positive bowel sounds Extremities: no cyanosis or clubbing; no edema Skin: warm and dry Objective Data Vital Signs Vital Signs: Vital Signs Temp Pulse Resp BP Pulse Ox 08/08/21 10:40 53 L 30 H 08/08/21 10:00 51 L 30 H 138/68 96 08/08/21 09:39 53 L 30 H 137/74 08/08/21 08:35 93 30 H 53 L 08/08/21 08:00 36.5 C 51 L 30 H 136/72 97 08/08/21 06:18 100 30 H 54 L 08/08/21 06:16 54 L 100 08/08/21 06:00 54 L 30 H 123/71 100 08/08/21 05:57 53 L 08/08/21 04:01 56 L 30 H 97 08/08/21 04:00 37.3 C 54 L 30 H 121/58 L 94 08/08/21 03:59 56 L 97 08/08/21 03:34 59 L 08/08/21 02:56 58 L 138/67 08/08/21 02:35 99 08/08/21 02:31 56 L 30 H 99 08/08/21 02:02 54 L 100 08/08/21 02:00 36.5 C 57 L 30 H 138/67 96 08/08/21 00:15 58 L 30 H 94 08/08/21 00:00 36.5 C 57 L 30 H 118/63 96 08/07/21 22:30 89 30 H 58 L 08/07/21 22:10 56 L 88 L 08/07/21 22:00 36.3 C L 57 L 30 H 106/59 L 89 L 08/07/21 20:35 89 L 08/07/21 20:02 58 L 30 H 90 08/07/21 20:00 36.2 C L 54 L 30 H 122/66 98 08/07/21 19:59 58 L 87 L 08/07/21 18:21 58 L 30 H 97
[2021-08-08 11:59] LABS: Glucose Point of Care 195 mg/dl (65-105)
[2021-08-08] MEDS: LIDOCAINE HCL 1% LOCAL INJ 2 ML AMPUL 5 ML INFILTRATE (12:50)
--- NOTE | 2021-08-08 14:47 | PC.NURSE ---
1400-all iv tubing changed after JACC line placement
[2021-08-08 17:07] LABS: Glucose Point of Care 217 mg/dl (65-105)
[2021-08-08] MEDS: CISATRACURIUM BESYLATE 200 MG in DEXTROSE 5% 80 ML 8.81 ML IV CONT (20:05)
[2021-08-08 20:20] LABS: Glucose Point of Care 210 mg/dl (65-105)
[2021-08-08] MEDS: NOREPINEPHRINE 8 MG/D5W 250 ML 8 MG/250 ML BAG 9.38 MG IV CONT (22:10)
[2021-08-09] VITALS (38 sets, daily range): BP systolic 102–145; BP diastolic 52–77; PULSE 50–110; RESP 28–30; TEMP 36.3–37.3; O2SAT 84–96
[2021-08-09] MEDS: INSULIN ASPART (*BKC) 100 UNITS/ML SUB-Q ×2 (00:01→07:42)
[2021-08-09 00:34] LABS: Glucose Point of Care 234 mg/dl (65-105)
[2021-08-09] MEDS: EPOPROSTENOL SODIUM 0.5 MG VIAL 1 MG INHALATION ×4 (00:38→19:06)
[2021-08-09 04:12] LABS: Hematocrit 35.4 % (42.0-52.0); Hemoglobin 11.7 g/dL (14.0-18.0); Mean Corpuscular HGB Conc 33.1 g/dl (32-36); Mean Corpuscular Hemoglobin 31.5 pg (26-34); Mean Corpuscular Volume 95.4 fl (80-100); Mean Platelet Volume 11.7 fl (7.4-10.4); Platelet Count Result 239 k/mm3 (150-375); Red Blood Count 3.71 M/mm3 (4.6-6.20); Red Cell Distribution Width 14.4 % (11.5-14.5); White Blood Count 28.5 K/mm3 (4.5-10.0)
[2021-08-09 04:23] LABS: Alanine Aminotransferase 70 U/L (4-50); Albumin Level 2.5 g/dL (3.5-5.1); Alkaline Phosphatase 123 U/L (38-126); Aspartate Amino Transferase 192 U/L (17-59); Bilirubin,Total 0.8 mg/dL (0.2-1.3); Blood Urea Nitrogen 67 mg/dL (9-20); Calcium 7.5 mg/dL (8.4-10.2); Carbon Dioxide > 40 mmol/L (22-30); Chloride 99 mmol/L (98-107); Estimated CRCL calculation 74 ml/min; Estimated Glomerular Filt Rate > 60; Glucose 183 mg/dL (65-110); Magnesium 2.9 mg/dL (1.6-2.3); Phosphorus 2.4 mg/dL (2.5-4.5); Potassium 3.9 mmol/L (3.4-5.0); Sodium 138 mmol/L (137-145)
[2021-08-09 04:36] LABS: INR 1.6; Prothrombin Time 18.5 Seconds (11.1-14.7)
[2021-08-09 04:46] LABS: Alveolar/Arterial O2 Gradient 527.4 mmHg; Base Excess ABG 7.9 mEq/l (+/-2.0); Carboxyhemoglobin 0.3 % THb (0-2.0); Fractional Inspired Oxygen 90 %; HCO3 ABG 32.5 mEq/l (22.0-26.0); Methemoglobin ABG 0.4 %THb (0-1.5); Oxygen Content ABG 16.5 %vol (16.0-22.0); Oxygen Saturation ABG 94.6 % (95.0-100.0); PCO2 ABG 45.1 mmHg (35.0-45.0); PO2 ABG 68.1 mmHg (80.0-100.0); PO2 FiO2 Ratio Arterial Blood 0.76 %; Reduced Hemoglobin 6.3 %THb (0-5.0); Total Hemoglobin 12.6 g/dL (12.0-18.0); pH ABG 7.475 (7.350-7.450)
[2021-08-09 04:47] LABS: Arterial Blood Gas Vent Mode CMV; Arterial Blood Gas Ventilator rate 30 /MIN; Device VENTILATOR; Modified Allen's Test Unable to perform; Site Drawn RIGHT RADIAL
[2021-08-09 04:48] LABS: Arterial Blood Gas PEEP 14 cmH2O; Arterial Blood Gas Tidal Volume 470 ml
[2021-08-09] MEDS: FENTANYL 2,500MCG/NS250ML(*CRX 2,500 MCG/250 ML BAG 12.5 MCG IV CONT (05:04)
[2021-08-09] MEDS: CENTRAL LINE FLUSH 10 ML IV PUSH ×4 (05:07→21:09)
[2021-08-09] MEDS: METOCLOPRAMIDE HCL 10 MG/10 ML SOLN UDC FEED TUBE ×3 (05:07→18:35)
[2021-08-09] MEDS: HYDROCORTISONE SODIUM SUCCINATE 100 MG/2 ML VIAL IV PUSH ×3 (05:07→21:06)
[2021-08-09 05:24] LABS: Acanthocytes 2+ (NORMAL); Band Neutrophils Percent 6 % (0-6); Lymphocytes Absolute Manual 1.42 K/mm3 (1.1-4.5); Monocytes Absolute Manual 0.57 K/mm3 (0.1-0.90); Monocytes Percent Manual 2 % (3-9); Neutrophils Percent Manual 87 % (46-73); Total Cells Counted 100
[2021-08-09 05:25] LABS: Anisocytosis 1+ (NORMAL); Platelet Estimate Adequate (Adequate)
[2021-08-09] MEDS: CISATRACURIUM BESYLATE 200 MG in DEXTROSE 5% 80 ML 8.81 ML IV CONT (07:36)
[2021-08-09] MEDS: INSULIN GLARGINE (*BKC) 100 UNITS/ML 60 UNITS SUB-Q (07:43)
[2021-08-09] MEDS: ASPIRIN 81 MG CHEWABLE TABLET PO (08:09)
[2021-08-09] MEDS: MINERAL OIL/WHITE PETROLATUM OINTMENT 1 APPLIC EACH EYE ×2 (08:11→20:53)
[2021-08-09] MEDS: ENOXAPARIN 100 MG/ML SYRINGE SUB-Q ×2 (08:11→20:54)
[2021-08-09] MEDS: MULTIVITAMINS THERAPEUTIC TAB (*BKC) 1 TABLET PO (08:12)
[2021-08-09] MEDS: PYRIDOXINE HCL 50 MG TABLET 100 MG PO (08:53)
[2021-08-09] MEDS: ASCORBIC ACID 500 MG TABLET 1000 MG PO (08:53)
[2021-08-09] MEDS: ZINC SULFATE 220 MG CAPSULE PO (08:54)
[2021-08-09] MEDS: PANTOPRAZOLE SODIUM IV 40 MG VIAL IV PUSH (08:54)
[2021-08-09] MEDS: CYANOCOBALAMIN 500 MCG TABLET PO (08:54)
[2021-08-09] MEDS: CHOLECALCIFEROL 1,000 UNITS TABLET 1000 UNITS PO (08:54)
[2021-08-09 09:02] LABS: Glucose Point of Care 222 mg/dl (65-105)
[2021-08-09] MEDS: REMDESIVIR 100 MG/NS 250 ML 100 MG/250 ML BAG 250 MG IVPB (09:08)
--- NOTE | 2021-08-09 09:52 | WPDINTPN ---
Progress Note: A&P Assessment and Plan (1) Acute respiratory failure: Code(s): J96.00 - Acute respiratory failure, unspecified whether with hypoxia or hypercapnia Status: Acute Assessment and Plan: Acute Respiratory failure secondary to COVID-19 pneumonia with gradual worsening during the hospital course. 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 -will continue to place patient in prone position 16-18 hours a day -Continue full mechanical ventilation support to prevent hypoxemia/hypercarbia and end organ damage. -Low tidal volume ventilation strategy to prevent volutrauma - Bronchodilators on hold due to patient on Flolan (2) COVID-19: Code(s): U07.1 - COVID-19 Status: Acute Assessment and Plan: COVID-19 positive on 07/29/2021. Presented to the hospital with worsening shortness of breath on 08/01/2021 and was intubated on 08/05/2021 - The patient is unvaccinated. -contact, droplet, airborne precautions and isolation. -dexamethasone started on 08/02, was switched to hydrocortisone for stress dose steroids on 08/05 - He has completed course of remdesivir, will re-dose Remdesivir starting 08/07/2020 - Continue Baricitinib (started 08/02) -continue vitamin-C, vitamin-D, zinc (3) Mixed hyperlipidemia: Code(s): E78.2 - Mixed hyperlipidemia Status: Chronic Assessment and Plan: Hold atorvastatin due to elevated liver enzymes (4) NSTEMI (non-ST elevated myocardial infarction): Code(s): I21.4 - Non-ST elevation (NSTEMI) myocardial infarction Status: Acute Assessment and Plan: elevated troponin likely secondary to cardiac arrest and hypoxia - EKG shows sinus tachycardia nonspecific changes. Elevated troponin -appreciate cardiology evaluation recommendation, recommended continue aspirin and therapeutic enoxaparin -Echocardiogram is pending (5) Shock: Code(s): R57.9 - Shock, unspecified Status: Acute Assessment and Plan: mixed shock secondary to cardiac arrest, hypovolemia, positive pressure ventilation, sepsis - conservative IV fluids due to COVID-19 pneumonia and ARDS - 08/05 2 L bolus given - continue Levophed and vasopressin, will maintain mean arterial pressures greater than 70 mmHg for better head organ perfusion Dexamethasone switched to equivalent stress dose steroids for additional mineralocorticoid activity (6) Hyperglycemia: Code(s): R73.9 - Hyperglycemia, unspecified Status: Acute Assessment and Plan: Continue Accu-Cheks and sliding scale insulin q.4 hours Increase Lantus HbA1c 6.3 (7) Sepsis: Code(s): A41.9 - Sepsis, unspecified organism Status: Acute Assessment and Plan: on presentation patient was diagnosed with COVID-19 pneumonia and his procalcitonin level was low suggesting against bacterial infection - when patient was intubated and had a cardiac arrest he was started on empiric antibiotics and blood cultures were repeated - his lactic acid is elevated but is this is likely secondary to shock from cardiac arrest and not assess early sepsis -continue vancomycin and Zosyn until cultures are resulted and and will deescalate if no other signs of infection (8) Metabolic acidosis: Code(s): E87.2 - Acidosis Status: Acute Assessment and Plan: lactic acidosis secondary to hypoxia and cardiac arrest, questionable sepsis patient was given 2 L of IV fluids lactic acid level improved -08/07: will gi
--- NOTE | 2021-08-09 12:08 | PCFNICU ---
ICU Rounding Note: Pt current nutrition is Glucerna 1.2 at 70 ml/hr over 22 hours. Last recorded weight is 108.1 kg, up from 106.8 kg on admit. Bowel Motility:+BM reported 08/09 Labs Reviewed:PO4 2.4,BUN 67, Glu 183,Alb 2.5,Hct 35.4,Hgb 11.7 Meds Noted:Fentanyl, Versed, Levophed, Protonix, Zosyn, Vit C, Vit D, Vit B12, Vit B6,Remdesivir, Flolan, Nimbex, MVI, Zinc, Reglan, NovoLog, Lantus Skin: WNL Additional Notes: Patient remains on mechanical vent and tube feedings of Glucerna 1.2 at 70 ml/hr, goal rate 75 ml/hr. Per nursing, patient is tolerating tube feedings well. Free water flush 30 ml q 4 hours. Agree with diet orders. Following daily in ICU rounds. Will monitor every Saturday and Saturday.
[2021-08-09] MEDS: BARICITINIB 2 MG TABLET PO (12:42)
[2021-08-09] MEDS: MIDAZOLAM 100MG/NS 100ML(*CRX) 100 MG/100 ML BAG IV CONT (12:45)
--- NOTE | 2021-08-09 12:54 | P.PNNP_ITS ---
Progress Note: A&P Assessment and Plan (1) Acute kidney injury: Code(s): N17.9 - Acute kidney failure, unspecified Status: Acute Assessment and Plan: * creatinine normalized * multifactorial etiology: * cardiac arrest * shock * prerenal factors/hypovolemia * hypoxia * urine output fluctuating * evaluation to date: * renal ultrasound normal * CPK mildly elevated (but not enough to affect kidney function) * urine electrolytes suggest prerenal azotemia * follow repeat labs and UOP (2) Acute respiratory failure: Code(s): J96.00 - Acute respiratory failure, unspecified whether with hypoxia or hypercapnia Status: Acute Assessment and Plan: * secondary to COVID-19 pneumonia * on full mechanical ventilator support * also requiring paralytics in addition to sedation * prone position as tolerated * continue supportive care (3) Cardiac arrest: Code(s): I46.9 - Cardiac arrest, cause unspecified Status: Acute Assessment and Plan: * primarily secondary to respiratory failure and hypoxia * serial troponin and echocardiogram noted * Cardiology following * telemetry monitoring (4) Pneumonia due to COVID-19 virus: Code(s): U07.1 - COVID-19; J12.82 - Pneumonia due to coronavirus disease 2018 Status: Acute Assessment and Plan: * COVID-19 positive on 07/29/2021 * unvaccinated * decadron started on 08/02 but switched to hydrocortisone for stress dose steroids on 08/05 * s/p remdesivir; redosing started on 08/07/21 * also on baricitinib (started 08/02) (5) Shock: Code(s): R57.9 - Shock, unspecified Status: Acute Assessment and Plan: * due to cardiac arrest, hypovolemia, positive pressure ventilation, sepsis * minimize IVFs due to COVID-19 pneumonia and ARDS * vasopressor therapy to maintain MAP * continue stress dose steroids (6) Metabolic acidosis: Code(s): E87.2 - Acidosis Status: Acute Assessment and Plan: * due to lactic acidosis from hypoxia and cardiac arrest * DENA/ARF contributing as well * improving with current interventions Will continue to follow. Subjective Date/time seen: 08/09/21 12:54 Remains on ventilator support and currently intubated/sedated/paralyzed; vasop ressor requirement have decreased (still on levophed but off vasopressin); renal function has improved although his urine output is a bit sluggish; no other issues/events overnight or earlier this morning. Exam Narrative: General: ill appearing male intubated/sedated/paralyzed Heart: normal S1 and S2; no rub Lungs: coarse breath sounds throughout Abdomen: soft, nontender, nondistended, positive bowel sounds Extremities: no cyanosis or clubbing; no edema Skin: warm and dry Objective Data Vital Signs Vital Signs: Vital Signs Temp Pulse Resp BP Pulse Ox 08/09/21 12:53 60 30 H 119/54 L 08/09/21 12:45 57 L 30 H 08/09/21 12:00 57 L 30 H 112/52 L 93 08/09/21 10:32 58 L 30 H 93 08/09/21 10:00 58 L 30 H 116/53 L 93 08/09/21 08:21 67 28 H 84 L 08/09/21 08:00 36.4 C 58 L 30 H 102/54 L 91 08/09/21 07:36 58 L 30 H 102/55 L 08/09/21 06:24 56 L 30 H 89 L 08/09/21 06:00 58 L 30 H 111/57 L 88 L 08/09/21 05:04 50 L 30 H 08/09/21 04:30 5
--- NOTE | 2021-08-09 12:54 | PM.PNNEP ---
Progress Note: A&P Assessment and Plan (1) Acute kidney injury: Code(s): N17.9 - Acute kidney failure, unspecified Status: Acute Assessment and Plan: creatinine normalized multifactorial etiology: cardiac arrest shock prerenal factors/hypovolemia hypoxia urine output fluctuating evaluation to date: renal ultrasound normal CPK mildly elevated (but not enough to affect kidney function) urine electrolytes suggest prerenal azotemia follow repeat labs and UOP (2) Acute respiratory failure: Code(s): J96.00 - Acute respiratory failure, unspecified whether with hypoxia or hypercapnia Status: Acute Assessment and Plan: secondary to COVID-19 pneumonia on full mechanical ventilator support also requiring paralytics in addition to sedation prone position as tolerated continue supportive care (3) Cardiac arrest: Code(s): I46.9 - Cardiac arrest, cause unspecified Status: Acute Assessment and Plan: primarily secondary to respiratory failure and hypoxia serial troponin and echocardiogram noted Cardiology following telemetry monitoring (4) Pneumonia due to COVID-19 virus: Code(s): U07.1 - COVID-19; J12.82 - Pneumonia due to coronavirus disease 2018 Status: Acute Assessment and Plan: COVID-19 positive on 07/29/2021 unvaccinated decadron started on 08/02 but switched to hydrocortisone for stress dose steroids on 08/05 s/p remdesivir; redosing started on 08/07/21 also on baricitinib (started 08/02) (5) Shock: Code(s): R57.9 - Shock, unspecified Status: Acute Assessment and Plan: due to cardiac arrest, hypovolemia, positive pressure ventilation, sepsis minimize IVFs due to COVID-19 pneumonia and ARDS vasopressor therapy to maintain MAP continue stress dose steroids (6) Metabolic acidosis: Code(s): E87.2 - Acidosis Status: Acute Assessment and Plan: due to lactic acidosis from hypoxia and cardiac arrest DENA/ARF contributing as well improving with current interventions Will continue to follow. Subjective Date/time seen: 08/09/21 12:54 Remains on ventilator support and currently intubated/sedated/paralyzed; vasopressor requirement have decreased (still on levophed but off vasopressin); renal function has improved although his urine output is a bit sluggish; no other issues/events overnight or earlier this morning. Exam Narrative: General: ill appearing male intubated/sedated/paralyzed Heart: normal S1 and S2; no rub Lungs: coarse breath sounds throughout Abdomen: soft, nontender, nondistended, positive bowel sounds Extremities: no cyanosis or clubbing; no edema Skin: warm and dry Objective Data Vital Signs Vital Signs: Vital Signs Temp Pulse Resp BP Pulse Ox 08/09/21 12:53 60 30 H 119/54 L 08/09/21 12:45 57 L 30 H 08/09/21 12:00 57 L 30 H 112/52 L 93 08/09/21 10:32 58 L 30 H 93 08/09/21 10:00 58 L 30 H 116/53 L 93 08/09/21 08:21 67 28 H 84 L 08/09/21 08:00 36.4 C 58 L 30 H 102/54 L 91 08/09/21 07:36 58 L 30 H 102/55 L 08/09/21 06:24 56 L 30 H 89 L 08/09/21 06:00 58 L 30 H 111/57 L 88 L 08/09/21 05:04 50 L 30 H 08/09/21 04:30 52 L 30 H 94 08/09/21 04:00 36.3 C L 52 L 30 H 112/54 L 91 08/09/21 02:29 52 L 30 H 90 08/09/21 02:00 52 L 30 H 122/69 93 08/09/21 00:38 55 L 30 H 95 08/09/21 00:00 36.8 C 56 L 30 H 118/58 L 94 08/08/21 22:26 52 L 30 H 94 08/08/21 22:10 58 L 117/60 08/08/21 22:00 52 L 30 H 127/63 94 08/08/21 20:21 51 L 30 H 95 08/08/21 20:05 50 L 30 H 151/74 H 08/08/21 20:00 36.2 C L 52 L 30 H 127/64 95 08/08/21 18:30 59 L 30 H 95 08/08/21 18:00 53 L 30 H 127/65 97 Intake/Output Intake/Output: Intake & Output 08/06/21 08/07/21 08/08/21 08/09/21 23:59 23:59 23:59 23:59 Inta
[2021-08-09 13:06] LABS: Glucose Point of Care 180 mg/dl (65-105)
[2021-08-09 16:29] LABS: Glucose Point of Care 150 mg/dl (65-105)
[2021-08-09] MEDS: CISATRACURIUM BESYLATE 200 MG in DEXTROSE 5% 80 ML 10.28 ML IV CONT (20:45)
[2021-08-09 21:18] LABS: Glucose Point of Care 161 mg/dl (65-105)
[2021-08-10] VITALS (56 sets, daily range): BP systolic 70–120; BP diastolic 43–69; PULSE 85–153; RESP 30; TEMP 36.2–37.2; O2SAT 64–100
[2021-08-10] MEDS: FENTANYL 2,500MCG/NS250ML(*CRX 2,500 MCG/250 ML BAG 15 MCG IV CONT (00:47)
[2021-08-10] MEDS: METOCLOPRAMIDE HCL 10 MG/10 ML SOLN UDC FEED TUBE ×5 (00:47→23:25)
[2021-08-10] MEDS: EPOPROSTENOL SODIUM 0.5 MG VIAL 1 MG INHALATION ×4 (00:56→19:40)
[2021-08-10 01:46] LABS: Glucose Point of Care 198 mg/dl (65-105)
[2021-08-10 04:24] LABS: Basophils Absolute Auto 0.1 K/mm3 (0.0-0.1); Basophils Percent Auto 0.6 % (0.2-1.2); Hematocrit 35.8 % (42.0-52.0); Hemoglobin 11.8 g/dL (14.0-18.0); Immature Granulocyte Absolute 1.29 K/mm3 (0.00-0.031); Lymphocytes Absolute Auto 0.34 K/mm3 (0.9-3.2); Lymphocytes Percent Auto 1.6 % (18.3-44.2); Mean Corpuscular Hemoglobin 31.9 pg (26-34); Mean Corpuscular Volume 96.8 fl (80-100); Monocytes Absolute Auto 0.5 K/mm3 (0.1-0.6); Monocytes Percent Auto 2.2 % (2.6-8.5); Neutrophils Absolute Auto 19.1 K/mm3 (1.3-6.7); Neutrophils Percent Auto 89.6 % (45.5-73.1); Platelet Count Result 209 k/mm3 (150-375); Red Cell Distribution Width 14.3 % (11.5-14.5); White Blood Count 21.4 K/mm3 (4.5-10.0)
[2021-08-10 04:36] LABS: INR 1.6
[2021-08-10 05:00] LABS: Base Excess ABG 6.2 mEq/l (+/-2.0); Carboxyhemoglobin 0.2 % THb (0-2.0); Fractional Inspired Oxygen 100 %; HCO3 ABG 31.8 mEq/l (22.0-26.0); Methemoglobin ABG 0.4 %THb (0-1.5); Oxygen Content ABG 16.5 %vol (16.0-22.0); Oxygen Saturation ABG 88.8 % (95.0-100.0); PCO2 ABG 49.4 mmHg (35.0-45.0); PO2 ABG 54.6 mmHg (80.0-100.0); PO2 FiO2 Ratio Arterial Blood 0.55 %; Reduced Hemoglobin 12.3 %THb (0-5.0); Total Hemoglobin 13.5 g/dL (12.0-18.0); pH ABG 7.426 (7.350-7.450)
[2021-08-10 05:01] LABS: Device VENTILATOR; Modified Allen's Test Unable to perform; Oxyhemoglobin 87.1 % THb (90.0-100.0); Site Drawn RIGHT RADIAL
[2021-08-10 05:03] LABS: Arterial Blood Gas PEEP 14 cmH2O; Arterial Blood Gas Tidal Volume 470 ml; Arterial Blood Gas Vent Mode CMV; Arterial Blood Gas Ventilator rate 30 /MIN
[2021-08-10 05:19] LABS: Alanine Aminotransferase 60 U/L (4-50); Albumin Level 2.3 g/dL (3.5-5.1); Alkaline Phosphatase 147 U/L (38-126); Anion Gap 2 mmol/L (8-16); Aspartate Amino Transferase 150 U/L (17-59); Bilirubin,Total 0.6 mg/dL (0.2-1.3); Blood Urea Nitrogen 51 mg/dL (9-20); Calcium 7.4 mg/dL (8.4-10.2); Carbon Dioxide 39 mmol/L (22-30); Chloride 99 mmol/L (98-107); Estimated CRCL calculation 74 ml/min; Estimated Glomerular Filt Rate > 60; Glucose 194 mg/dL (65-110); Magnesium 2.5 mg/dL (1.6-2.3); Phosphorus 3.2 mg/dL (2.5-4.5); Sodium 140 mmol/L (137-145)
[2021-08-10] MEDS: HYDROCORTISONE SODIUM SUCCINATE 100 MG/2 ML VIAL IV PUSH ×3 (05:32→21:38)
[2021-08-10] MEDS: CENTRAL LINE FLUSH 10 ML IV PUSH ×3 (05:33→21:39)
[2021-08-10] MEDS: CISATRACURIUM BESYLATE 200 MG in DEXTROSE 5% 80 ML 10.28 ML IV CONT ×2 (06:11→15:47)
[2021-08-10] MEDS: BUMETANIDE INJ 1 MG/4 ML VIAL IV PUSH (08:23)
[2021-08-10] MEDS: PANTOPRAZOLE SODIUM IV 40 MG VIAL IV PUSH (08:24)
[2021-08-10] MEDS: INSULIN GLARGINE (*BKC) 100 UNITS/ML 60 UNITS SUB-Q (08:24)
[2021-08-10] MEDS: ASPIRIN 81 MG CHEWABLE TABLET PO (08:25)
[2021-08-10] MEDS: ASCORBIC ACID 500 MG TABLET 1000 MG PO (08:25)
[2021-08-10] MEDS: MINERAL OIL/WHITE PETROLATUM OINTMENT 1 APPLIC EACH EYE ×2 (08:25→21:38)
[2021-08-10] MEDS: CYANOCOBALAMIN 500 MCG TABLET PO (08:25)
[2021-08-10] MEDS: ZINC SULFATE 220 MG CAPSULE PO (08:25)
[2021-08-10] MEDS: ENOXAPARIN 100 MG/ML SYRINGE SUB-Q (08:25)
[2021-08-10] MEDS: MULTIVITAMINS THERAPEUTIC TAB (*BKC) 1 TABLET PO (08:26)
[2021-08-10] MEDS: PYRIDOXINE HCL 50 MG TABLET 100 MG PO (08:26)
[2021-08-10] MEDS: CHOLECALCIFEROL 1,000 UNITS TABLET 1000 UNITS PO (08:26)
[2021-08-10] MEDS: REMDESIVIR 100 MG/NS 250 ML 100 MG/250 ML BAG 250 MG IVPB (10:24)
--- NOTE | 2021-08-10 11:08 | PC.NURSE ---
Belongings, including cell phone, wallet, and clothing, sent with , Radha Worrell today 08/10/21 @ 1110. Belongings envelope signed by , Radha Worrell, and placed in chart.
--- NOTE | 2021-08-10 12:00 | PM.PNNEP ---
Progress Note: A&P Assessment and Plan (1) Acute kidney injury: Code(s): N17.9 - Acute kidney failure, unspecified Status: Acute Assessment and Plan: creatinine normalized multifactorial etiology: cardiac arrest shock prerenal factors/hypovolemia hypoxia urine output fluctuating evaluation to date: renal ultrasound normal CPK mildly elevated (but not enough to affect kidney function) urine electrolytes suggest prerenal azotemia follow repeat labs and UOP (2) Acute respiratory failure: Code(s): J96.00 - Acute respiratory failure, unspecified whether with hypoxia or hypercapnia Status: Acute Assessment and Plan: secondary to COVID-19 pneumonia on full mechanical ventilator support also requiring paralytics in addition to sedation prone position as tolerated continue supportive care (3) Cardiac arrest: Code(s): I46.9 - Cardiac arrest, cause unspecified Status: Acute Assessment and Plan: primarily secondary to respiratory failure and hypoxia serial troponin and echocardiogram noted Cardiology following telemetry monitoring (4) Pneumonia due to COVID-19 virus: Code(s): U07.1 - COVID-19; J12.82 - Pneumonia due to coronavirus disease 2018 Status: Acute Assessment and Plan: COVID-19 positive on 07/29/2021 unvaccinated decadron started on 08/02 but switched to hydrocortisone for stress dose steroids on 08/05 s/p remdesivir; redosing started on 08/07/21 also on baricitinib (started 08/02) (5) Shock: Code(s): R57.9 - Shock, unspecified Status: Acute Assessment and Plan: resolving due to cardiac arrest, hypovolemia, positive pressure ventilation, sepsis minimize IVFs due to COVID-19 pneumonia and ARDS off vasopressor therapy continue stress dose steroids (6) Metabolic acidosis: Code(s): E87.2 - Acidosis Status: Acute Assessment and Plan: due to lactic acidosis from hypoxia and cardiac arrest DENA/ARF contributing as well improving with current interventions Will continue to follow. Subjective Date/time seen: 08/10/21 12:00 Appears about the same -- intubated/sedated/paralyzed and on full mechanical ventilator support; creatinine is better/stable in the last 24 hours associated with reasonably urine output as well; currently off all vasopressor therapy with stable hemodynamics at this time; prone positioning continues as tolerated. Exam Narrative: General: ill appearing male intubated/sedated/paralyzed Heart: normal S1 and S2; no rub Lungs: coarse breath sounds throughout Abdomen: soft, nontender, nondistended, positive bowel sounds Extremities: no cyanosis or clubbing; no edema Skin: no rash Objective Data Vital Signs Vital Signs: Vital Signs Temp Pulse Resp BP Pulse Ox 08/10/21 12:00 37.1 C 98 30 H 104/58 L 90 08/10/21 11:31 105 H 90 08/10/21 10:45 102 H 30 H 88 L 08/10/21 10:23 101 H 30 H 08/10/21 10:22 101 H 30 H 103/59 L 08/10/21 10:00 101 H 30 H 103/59 L 88 L 08/10/21 08:52 94 30 H 89 L 08/10/21 08:22 97 30 H 08/10/21 08:21 96 30 H 113/66 08/10/21 08:20 95 30 H 08/10/21 08:00 36.5 C 94 30 H 113/66 100 08/10/21 07:19 102 H 30 H 88 L 08/10/21 06:00 36.2 C L 89 30 H 118/65 88 L 08/10/21 05:15 88 L 08/10/21 04:34 92 89 L 08/10/21 04:32 97 30 H 89 L 08/10/21 04:00 36.6 C 87 30 H 107/65 90 08/10/21 02:55 97 88 L 08/10/21 02:02 101 H 30 H 108/61 08/10/21 02:00 36.6 C 100 30 H 108/61 89 L 08/10/21 01:04 102 H 90 08/10/21 00:57 104 H 30 H 88 L 08/10/21 00:53 105 H 30 H 111/67 08/10/21 00:47 103 H 30 H 08/10/21 00:00 37.2 C 106 H 30 H 120/68 90 08/09/21 23:20 104 H 30 H 89 L 08/09/21 22:55 120/66 08/09/21 22:22 126/71 08/09/21 22:18 107 H 30 H 126/71 02
--- NOTE | 2021-08-10 12:00 | P.PNNP_ITS ---
Progress Note: A&P Assessment and Plan (1) Acute kidney injury: Code(s): N17.9 - Acute kidney failure, unspecified Status: Acute Assessment and Plan: * creatinine normalized * multifactorial etiology: * cardiac arrest * shock * prerenal factors/hypovolemia * hypoxia * urine output fluctuating * evaluation to date: * renal ultrasound normal * CPK mildly elevated (but not enough to affect kidney function) * urine electrolytes suggest prerenal azotemia * follow repeat labs and UOP (2) Acute respiratory failure: Code(s): J96.00 - Acute respiratory failure, unspecified whether with hypoxia or hypercapnia Status: Acute Assessment and Plan: * secondary to COVID-19 pneumonia * on full mechanical ventilator support * also requiring paralytics in addition to sedation * prone position as tolerated * continue supportive care (3) Cardiac arrest: Code(s): I46.9 - Cardiac arrest, cause unspecified Status: Acute Assessment and Plan: * primarily secondary to respiratory failure and hypoxia * serial troponin and echocardiogram noted * Cardiology following * telemetry monitoring (4) Pneumonia due to COVID-19 virus: Code(s): U07.1 - COVID-19; J12.82 - Pneumonia due to coronavirus disease 2018 Status: Acute Assessment and Plan: * COVID-19 positive on 07/29/2021 * unvaccinated * decadron started on 08/02 but switched to hydrocortisone for stress dose steroids on 08/05 * s/p remdesivir; redosing started on 08/07/21 * also on baricitinib (started 08/02) (5) Shock: Code(s): R57.9 - Shock, unspecified Status: Acute Assessment and Plan: * resolving * due to cardiac arrest, hypovolemia, positive pressure ventilation, sepsis * minimize IVFs due to COVID-19 pneumonia and ARDS * off vasopressor therapy * continue stress dose steroids (6) Metabolic acidosis: Code(s): E87.2 - Acidosis Status: Acute Assessment and Plan: * due to lactic acidosis from hypoxia and cardiac arrest * DENA/ARF contributing as well * improving with current interventions Will continue to follow. Subjective Date/time seen: 08/10/21 12:00 Appears about the same -- intubated/sedated/paralyzed and on full mechanical ventilator support; creatinine is better/stable in the last 24 hours associated with reasonably urine output as well; currently off all vasopressor therapy with stable hemodynamics at this time; prone positioning continues as tolerated. Exam Narrative: General: ill appearing male intubated/sedated/paralyzed Heart: normal S1 and S2; no rub Lungs: coarse breath sounds throughout Abdomen: soft, nontender, nondistended, positive bowel sounds Extremities: no cyanosis or clubbing; no edema Skin: no rash Objective Data Vital Signs Vital Signs: Vital Signs Temp Pulse Resp BP Pulse Ox 08/10/21 12:00 37.1 C 98 30 H 104/58 L 90 08/10/21 11:31 105 H 90 08/10/21 10:45 102 H 30 H 88 L 08/10/21 10:23 101 H 30 H 08/10/21 10:22 101 H 30 H 103/59 L 08/10/21 10:00 101 H 30 H 103/59 L 88 L 08/10/21 08:52 94 30 H 89 L 08/10/21 08:22 97 30 H 08/10/21 08:21 96 30 H 113/66 08/10/21 08:20 95 30 H 08/10/21 08:00 36.5 C 94 30 H 113/66 100 02/2
[2021-08-10] MEDS: BARICITINIB 2 MG TABLET 4 MG PO (12:05)
--- NOTE | 2021-08-10 12:10 | PCFNICU ---
ICU Rounding Note: Pt current nutrition is Glucerna 1.2 at 75 ml/hr over 22 hours. Last recorded weight is 113 kg, up from 106.8 kg on admit. Bowel Motility:+BM reported 08/09 Labs Reviewed:Glu 194, Alb 2.3,Hgb 11.8, Hct 35.8, BUN 51 Meds Noted: Fentanyl, Versed, Levophed, Protonix, Zosyn, Vit C, Vit D, Vit B12, Vit B6,Remdesivir, Flolan, Nimbex, MVI, Zinc, Reglan, NovoLog, Lantus Skin: WNL Additional Notes: Patient remains on mechanical vent and tube feedings of Glucerna 1.2 at 75 ml/hr and tolerating. Free water flush 30 ml q 4 hours. Agree with diet orders. Following daily in ICU rounds. Will monitor every Saturday and Saturday.
--- NOTE | 2021-08-10 12:58 | WPDINTPN ---
Progress Note: A&P Assessment and Plan (1) Acute respiratory failure: Code(s): J96.00 - Acute respiratory failure, unspecified whether with hypoxia or hypercapnia Status: Acute Assessment and Plan: Acute Respiratory failure secondary to COVID-19 pneumonia with gradual worsening during the hospital course. 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 -Low tidal volume ventilation strategy to prevent volutrauma -08/08: sputum cultures growing Staph aureus for which he is on vancomycin and Zosyn (2) COVID-19: Code(s): U07.1 - COVID-19 Status: Acute Assessment and Plan: COVID-19 positive on 07/29/2021. Presented to the hospital with worsening shortness of breath on 08/01/2021 and was intubated on 08/05/2021 - The patient is unvaccinated. -contact, droplet, airborne precautions and isolation. -dexamethasone started on 08/02, was switched to hydrocortisone for stress dose steroids on 08/05 - He has completed course of remdesivir, will re-dose Remdesivir starting 08/07/2020 - Continue Baricitinib (started 08/02) -continue vitamin-C, vitamin-D, zinc (3) Mixed hyperlipidemia: Code(s): E78.2 - Mixed hyperlipidemia Status: Chronic Assessment and Plan: Hold atorvastatin due to elevated liver enzymes (4) NSTEMI (non-ST elevated myocardial infarction): Code(s): I21.4 - Non-ST elevation (NSTEMI) myocardial infarction Status: Acute Assessment and Plan: elevated troponin likely secondary to cardiac arrest and hypoxia - EKG shows sinus tachycardia nonspecific changes. Elevated troponin -appreciate cardiology evaluation recommendation, recommended continue aspirin and therapeutic enoxaparin -08/07: Echocardiogram EF 55%, grade 2 diastolic dysfunction, moderate aortic stenosis, mild pulmonary hypertension (5) Shock: Code(s): R57.9 - Shock, unspecified Status: Acute Assessment and Plan: mixed shock secondary to cardiac arrest, hypovolemia, positive pressure ventilation, sepsis - conservative IV fluids due to COVID-19 pneumonia and ARDS - 08/05 2 L bolus given - continue Levophed and vasopressin, will maintain mean arterial pressures greater than 70 mmHg for better head organ perfusion Dexamethasone switched to equivalent stress dose steroids for additional mineralocorticoid activity (6) Hyperglycemia: Code(s): R73.9 - Hyperglycemia, unspecified Status: Acute Assessment and Plan: Continue Accu-Cheks and sliding scale insulin q.4 hours Increase Lantus HbA1c 6.3 (7) Sepsis: Code(s): A41.9 - Sepsis, unspecified organism Status: Acute Assessment and Plan: on presentation patient was diagnosed with COVID-19 pneumonia and his procalcitonin level was low suggesting against bacterial infection - when patient was intubated and had a cardiac arrest he was started on empiric antibiotics and blood cultures were repeated - his lactic acid is elevated but is this is likely secondary to shock from cardiac arrest and not assess early sepsis -continue vancomycin and Zosyn until cultures are resulted and and will deescalate if no other signs of infection (8) Metabolic acidosis: Code(s): E87.2 - Acidosis Status: Acute Assessment and Plan: lactic acidosis secondary to hypoxia and cardiac arrest, questionable sepsis patient was given 2 L of IV fluids lactic acid level improved -08/07: will give 1 L IV
[2021-08-10 13:58] LABS: Hematocrit 36.8 % (42.0-52.0); Hemoglobin 11.8 g/dL (14.0-18.0); Mean Corpuscular HGB Conc 32.1 g/dl (32-36); Mean Corpuscular Hemoglobin 31.6 pg (26-34); Mean Corpuscular Volume 98.7 fl (80-100); Mean Platelet Volume 12.3 fl (7.4-10.4); Platelet Count Result 217 k/mm3 (150-375); Red Blood Count 3.73 M/mm3 (4.6-6.20); Red Cell Distribution Width 14.5 % (11.5-14.5); White Blood Count 23.3 K/mm3 (4.5-10.0)
[2021-08-10 14:04] LABS: Alveolar/Arterial O2 Gradient 615.5 mmHg; Base Excess ABG 4.4 mEq/l (+/-2.0); Fractional Inspired Oxygen 100 %; HCO3 ABG 30.6 mEq/l (22.0-26.0); Oxygen Content ABG 13.9 %vol (16.0-22.0); PCO2 ABG 52.6 mmHg (35.0-45.0); PO2 FiO2 Ratio Arterial Blood 0.45 %; Total Hemoglobin 12.7 g/dL (12.0-18.0); pH ABG 7.382 (7.350-7.450)
[2021-08-10 14:06] LABS: Oxygen Saturation ABG 79.4 % (95.0-100.0); Oxyhemoglobin 77.7 % THb (90.0-100.0); PO2 ABG 44.9 mmHg (80.0-100.0)
[2021-08-10 14:07] LABS: Device VENTILATOR; Site Drawn RIGHT FEMORAL
[2021-08-10 14:08] LABS: Arterial Blood Gas PEEP 18 cmH2O; Arterial Blood Gas Tidal Volume 410 ml; Arterial Blood Gas Vent Mode CMV; Arterial Blood Gas Ventilator rate 30 /MIN
[2021-08-10 14:08] LABS: INR 1.8; Prothrombin Time 19.9 Seconds (11.1-14.7)
[2021-08-10] MEDS: AMIODARONE 150 MG/D5W 100 ML 150 MG/100 ML BAG 600 MG IV CONT (14:08)
[2021-08-10 14:09] LABS: Partial Thromboplastin Time 45.6 SECONDS (22.3-36.8)
[2021-08-10 14:10] LABS: Alanine Aminotransferase 54 U/L (4-50); Albumin Level 2.3 g/dL (3.5-5.1); Alkaline Phosphatase 145 U/L (38-126); Anion Gap 3 mmol/L (8-16); Aspartate Amino Transferase 132 U/L (17-59); Bilirubin,Total 0.8 mg/dL (0.2-1.3); Blood Urea Nitrogen 53 mg/dL (9-20); Calcium 7.2 mg/dL (8.4-10.2); Carbon Dioxide 36 mmol/L (22-30); Chloride 100 mmol/L (98-107); Estimated CRCL calculation 69 ml/min; Estimated Glomerular Filt Rate > 60; Glucose 275 mg/dL (65-110); Magnesium 2.4 mg/dL (1.6-2.3); Phosphorus 3.8 mg/dL (2.5-4.5); Potassium 3.7 mmol/L (3.4-5.0); Sodium 139 mmol/L (137-145)
[2021-08-10 14:17] LABS: Lactic Acid Reflex 4.4 mmol/L (0.7-2.1)
[2021-08-10] MEDS: NOREPINEPHRINE 8 MG/D5W 250 ML 8 MG/250 ML BAG 9.38 MG IV CONT (14:28)
[2021-08-10] MEDS: NOREPINEPHRINE 8 MG/D5W 250 ML 8 MG/250 ML BAG 18.75 MG IV CONT (14:33)
--- NOTE | 2021-08-10 14:46 | PDCODEBLUE ---
Code Blue Note Code Blue Note Time Arrived at Code Blue: Arrived in the room at 1:15 p.m. on 08/10/2021 Initial Rhythm on Arrival: Pulseless electrical activity at 1:17 p.m. Airway Management: Initiated bagging pt on arrival Chest Compressions: Initiated upon arrival Result of Code Blue: pt in icu Cardiac Rhythm Post Code: Atrial fibrillation RVR Code Blue Summary: I was called to the room since patient desaturated in the low 70s, we started bagging the patient, his heart rate dropped and we could not feel pulses, patient was placed back in supine position and CPR was commenced. Included ACLS protocol and patient received 1 amp of epinephrine, 1 amp of bicarb and 1 amp of D50. Patient was in V-tach so shock turn x1 and he converted to sinus tachycardia/atrial fibrillation. Patient did have ROSC at 1:21 p.m. Patient's heart rate was in AFib RVR with heart rates in 150s to 160s and was given a bolus of amiodarone. Patient did drop his blood pressures and was started Levophed. ABGs were obtained using an ultrasound from the femoral artery, blood was dark and ABGs obtained was pH 7.38, pCO2 52.6, PO2 44.9, HC03 30.6, O2 sats 79.4. Patient will be started on amiodarone infusion and Levophed infusion. The nurses can barely get a pulse ox to be read, and when it reads it is mid 60s. We have bagged the patient but O2 sats remain the same so patient was connected to the ventilator, peep was increased to 20 The has been updated multiple times during the code and after the code and was to continue doing everything for now.
[2021-08-10 15:00] LABS: Glucose Point of Care 187 mg/dl (65-105)
[2021-08-10 15:29] LABS: Vancomycin Trough 8.6 ug/mL (10.0-20.0)
--- NOTE | 2021-08-10 15:30 | PC.NURSE ---
RN administering medications. Pt's Flolan machine alarms that medication is empty. RN calls and notifies respiratory therapist about Flolan being empty. Pt's O2 sat begin to drop from 88% to 84%. RT shows up about 5 minutes after phone call and replaces empty syringe with a full Flolan syringe. Pt's O2 sats remain at 84%. Pt O2 sats begin to drop into upper 70's. Elementary Principal notified of situation. New order to increase peep to 16. Peep increased 16. Pt sat's continue to drop with the increasing of peep on ventilator. MD notified of situation. MD ordered to start bagging pt. RN called RT and started to bag patient while awaiting help to arrive. MD entered room, RT entered room and started to bag pt for RN. MD assessed pt with doppler to find pulse. MD and RN unable to find carotid pulse with doppler. Code blue called, and pt supinated. See code sheet.
[2021-08-10] MEDS: AMIODARONE 360 MG/D5W 200 ML 360 MG/200 ML BAG 33.33 MG IV CONT (15:50)
[2021-08-10] MEDS: FENTANYL 2,500MCG/NS250ML(*CRX 2,500 MCG/250 ML BAG 17.5 MCG IV CONT (15:55)
--- NOTE | 2021-08-10 16:17 | PC.NURSE ---
Spoke with Dr. Hirsch regarding bleeding from R ear. New orders to spray Afrin into R ear canal. Cover cotton ball in vaseline and insert into R ear canal. Change as needed. Dr. Hirsch will see in AM.
[2021-08-10 16:53] LABS: Reflex Lactic Acid Yes or No Add Lactic
[2021-08-10] MEDS: MIDAZOLAM 100MG/NS 100ML(*CRX) 100 MG/100 ML BAG IV CONT (17:40)
--- NOTE | 2021-08-10 17:40 | WPDCN ---
Assessment and Plan Assessment and plan (1) Bleeding from right ear: Code(s): H92.21 - Otorrhagia, right ear Status: Acute Assessment and Plan: Would recommend one squirt of afrin and placing a cotton ball coated in vaseline in the ear canal. If concern for skull base fracture exists, as it does for myself, recommend ICU attending review images with radiology. If concern for skull base fracture persists following current image review, recommend ct temporal bone and transfer to center with neurosurgical services with any concerning intracranial findings. All of the aforementioned assumes a skull base fracture is the most pressing issue. If it is not, which it sounds like it might not be, based on nursing reporting, then continue current management and place cotton balls to tamponade bleeding. Lovenox per ICU. Will see 08/11/21. With no inciting factor for bleeding, potential skull base/temporal bone fracture from fall several days ago. HPI Data of Consult Date/Time: 08/10/21 17:40 Requesting Physician: Aby Gonzales MD Primary Care Provider: Ledy Black NP Consult Narrative Narrative: Zenon Worrell is a 71 year old male [facility] Past Medical History Medical History Arthritis Essential (primary) hypertension Mixed hyperlipidemia Prediabetes Surgical History Surgical History H/O elbow surgery Bilaterally H/O toe surgery Bilateral toe implants History of cervical spinal surgery History of lumbar surgery History of shoulder surgery Bilaterally History of surgery on wrist Status post cervical spinal arthrodesis Family History Family History Father Family history of kidney disease Family history of coronary artery disease, Onset Age: 75 Social History Social History Social History: 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 He has 1 child. He retired from [employer]. He occasionally has a drink a beer he is a former smoker. Does not use any marijuana or illicit drugs. Code status full code Smoking packs per day: 2 Smoking cigarettes per day: 40.0 Smoking status: Former smoker Tobacco type: cigarettes Second hand tobacco smoke exposure: No Alcohol intake: current Drinks per week: 1 Alcohol use details: Occasionally Substance use: never Substance use type: does not use Gender identity (if verbalized by the patient): Male Sexual Orientation (if Verbalized by the Patient): Straight or Heterosexual Spiritual care concerns: No Meds Home Medications and Allergies Home Medications Medication Instructions Recorded Confirmed Type multivitamin 1 tablet PO DAILY 05/28/19 08/01/21 History celecoxib 200 mg capsule 200 mg PO BID #180 cap 11/08/20 08/01/21 Rx hydrocodone 5 mg-acetaminophen 325 1 tablet PO Q6H PRN #120 tablet 02/14/21 08/01/21 Rx mg tablet atorvastatin 20 mg tablet 20 mg PO DAILY #90 tablet 03/16/21 08/01/21 Rx mirabegron 50 mg tablet,extended 50 mg PO DAILY #90 tablet 03/16/21 08/01/21 Rx release 24 hr cholecalciferol (vitamin D3) 25 1,000 unit PO DAILY #90 tablet 03/20/21 08/01/21 Rx mcg (1,000 unit) tablet blood sugar diagnostic #50 ea 07/05/21 08/01/21 Rx blood-glucose meter #1 ea 07/05/21 08/01/21 Rx ascorbic acid (vitamin C) [Vitamin 1 g PO DAILY 08/01/21 08/01/21 History C] aspirin [Adult Aspirin] 81 mg PO DAILY 08/01/21 08/01/21 History cyanocobalamin (vitamin B-12) 500 mcg PO DAILY 08/01/21 08/01/21 History [Vitamin B-12] pyridoxine (vitamin B6) [Vitamin 100 mg PO DAILY 08/01/21 08/01/21 History B-6] zinc 50 mg PO DAILY 08/01/21 08/01/21 History losartan 100 mg PO DAILY 08/02/21 08/02/21 History Allergies Allergy/AdvReac Type
[2021-08-10] MEDS: OXYMETAZOLINE HCL 0.05% NAS 15 ML BTL (*BKC) 1 SPRAY XX (17:43)
[2021-08-10] MEDS: INSULIN ASPART (*BKC) 100 UNITS/ML SUB-Q (17:44)
[2021-08-10 17:51] LABS: Lactic Acid 2.8 mmol/L (0.7-2.1)
[2021-08-10 18:26] LABS: Glucose Point of Care 247 mg/dl (65-105)
[2021-08-10 18:26] LABS: Glucose Point of Care 338 mg/dl (65-105)
--- NOTE | 2021-08-10 18:39 | PC.NURSE ---
Spoke with Dr Whitten regarding decreasing blood pressure. Restarted Levophed and titrated to keep BP MAP 60-65. New order that if Levophed is reached to the rate of 20mcg/min, may restart Vasopressin to help maintain BP MAP of 60-65.
[2021-08-10] MEDS: AMIODARONE 360 MG/D5W 200 ML 360 MG/200 ML BAG 16.67 MG IV CONT (21:38)
[2021-08-10] MEDS: CISATRACURIUM BESYLATE 200 MG in DEXTROSE 5% 80 ML 14.69 ML IV CONT (23:26)
[2021-08-10] MEDS: NOREPINEPHRINE 8 MG/D5W 250 ML 8 MG/250 ML BAG 33.75 MG IV CONT (23:27)
[2021-08-10 23:38] LABS: Glucose Point of Care 178 mg/dl (65-105)
[2021-08-11] VITALS (40 sets, daily range): BP systolic 89–131; BP diastolic 39–73; PULSE 56–115; RESP 18–30; TEMP 35.1–37.3; O2SAT 88–100
[2021-08-11] MEDS: EPOPROSTENOL SODIUM 0.5 MG VIAL 1 MG INHALATION ×4 (02:18→20:23)
[2021-08-11 04:54] LABS: Base Excess ABG 10.5 mEq/l (+/-2.0); Carboxyhemoglobin 0.3 % THb (0-2.0); Fractional Inspired Oxygen 100 %; HCO3 ABG 37.4 mEq/l (22.0-26.0); Methemoglobin ABG 0.5 %THb (0-1.5); Oxygen Content ABG 15.7 %vol (16.0-22.0); Oxygen Saturation ABG 92.4 % (95.0-100.0); Oxyhemoglobin 91.4 % THb (90.0-100.0); PO2 ABG 65.7 mmHg (80.0-100.0); PO2 FiO2 Ratio Arterial Blood 0.66 %; Reduced Hemoglobin 7.8 %THb (0-5.0); Total Hemoglobin 12.2 g/dL (12.0-18.0)
[2021-08-11 05:02] LABS: Device VENTILATOR; Modified Allen's Test Pass; Site Drawn LEFT RADIAL
[2021-08-11 05:03] LABS: Arterial Blood Gas PEEP 20 cmH2O; Arterial Blood Gas Vent Mode CMV
[2021-08-11 05:04] LABS: Arterial Blood Gas Tidal Volume 450 ml
[2021-08-11 05:07] LABS: PCO2 ABG 61.8 mmHg (35.0-45.0)
[2021-08-11 05:13] LABS: Arterial Blood Gas Ventilator rate 30 /MIN
[2021-08-11 05:29] LABS: Glucose Point of Care 299 mg/dl (65-105)
[2021-08-11 05:29] LABS: Glucose Point of Care 247 mg/dl (65-105)
[2021-08-11] MEDS: CENTRAL LINE FLUSH 10 ML IV PUSH ×3 (05:31→21:03)
[2021-08-11] MEDS: HYDROCORTISONE SODIUM SUCCINATE 100 MG/2 ML VIAL IV PUSH ×3 (05:31→21:01)
[2021-08-11] MEDS: METOCLOPRAMIDE HCL 10 MG/10 ML SOLN UDC FEED TUBE ×4 (05:31→23:25)
[2021-08-11 05:33] LABS: Hematocrit 32.7 % (42.0-52.0); Hemoglobin 10.7 g/dL (14.0-18.0); Mean Corpuscular HGB Conc 32.7 g/dl (32-36); Mean Corpuscular Hemoglobin 30.9 pg (26-34); Mean Corpuscular Volume 94.5 fl (80-100); Mean Platelet Volume 12.7 fl (7.4-10.4); Platelet Count Result 241 k/mm3 (150-375); Red Blood Count 3.46 M/mm3 (4.6-6.20); Red Cell Distribution Width 14.5 % (11.5-14.5); White Blood Count 28.4 K/mm3 (4.5-10.0)
[2021-08-11 05:50] LABS: INR 1.8; Prothrombin Time 19.9 Seconds (11.1-14.7)
[2021-08-11 05:51] LABS: Partial Thromboplastin Time 45.9 SECONDS (22.3-36.8)
[2021-08-11 05:55] LABS: Alanine Aminotransferase 53 U/L (4-50); Albumin Level 1.9 g/dL (3.5-5.1); Alkaline Phosphatase 139 U/L (38-126); Anion Gap 2 mmol/L (8-16); Aspartate Amino Transferase 109 U/L (17-59); Bilirubin,Total 0.6 mg/dL (0.2-1.3); Blood Urea Nitrogen 67 mg/dL (9-20); Calcium 7.1 mg/dL (8.4-10.2); Carbon Dioxide 38 mmol/L (22-30); Chloride 94 mmol/L (98-107); Estimated CRCL calculation 51 ml/min; Estimated Glomerular Filt Rate 46; Glucose 276 mg/dL (65-110); Magnesium 2.5 mg/dL (1.6-2.3); Phosphorus 3.8 mg/dL (2.5-4.5); Potassium 4.5 mmol/L (3.4-5.0); Sodium 134 mmol/L (137-145)
[2021-08-11 05:57] LABS: Anisocytosis 1+ (NORMAL); Band Neutrophils Percent 8 % (0-6); Lymphocytes Absolute Manual 0.85 K/mm3 (1.1-4.5); Neutrophils Absolute Manual 27.54 K/mm3 (1.3-6.7); Neutrophils Percent Manual 89 % (46-73); Platelet Estimate Adequate (Adequate); Total Cells Counted 100
[2021-08-11 05:58] LABS: Hypochromasia 1+ (NORMAL)
[2021-08-11] MEDS: CISATRACURIUM BESYLATE 200 MG in DEXTROSE 5% 80 ML 14.69 ML IV CONT ×4 (06:00→23:24)
[2021-08-11] MEDS: FENTANYL 2,500MCG/NS250ML(*CRX 2,500 MCG/250 ML BAG 17.5 MCG IV CONT ×2 (06:07→19:55)
[2021-08-11] MEDS: INSULIN ASPART (*BKC) 100 UNITS/ML SUB-Q ×3 (06:13→17:25)
--- NOTE | 2021-08-11 06:14 | PC.NURSE ---
Sister of patient called, and this RN provided an update on patient's condition.
[2021-08-11] MEDS: NOREPINEPHRINE 8 MG/D5W 250 ML 8 MG/250 ML BAG 30 MG IV CONT (08:10)
[2021-08-11] MEDS: MINERAL OIL/WHITE PETROLATUM OINTMENT 1 APPLIC EACH EYE ×2 (08:11→20:00)
[2021-08-11] MEDS: CHOLECALCIFEROL 1,000 UNITS TABLET 1000 UNITS PO (08:11)
[2021-08-11] MEDS: MULTIVITAMINS THERAPEUTIC TAB (*BKC) 1 TABLET PO (08:11)
[2021-08-11] MEDS: PANTOPRAZOLE SODIUM IV 40 MG VIAL IV PUSH (08:11)
[2021-08-11] MEDS: ASCORBIC ACID 500 MG TABLET 1000 MG PO (08:11)
[2021-08-11] MEDS: ZINC SULFATE 220 MG CAPSULE PO (08:11)
[2021-08-11] MEDS: CYANOCOBALAMIN 500 MCG TABLET PO (08:11)
[2021-08-11] MEDS: polyethylene glycoL 3350 17 GM POWD.PACK PO (08:11)
[2021-08-11] MEDS: PYRIDOXINE HCL 50 MG TABLET 100 MG PO (08:12)
[2021-08-11] MEDS: INSULIN GLARGINE (*BKC) 100 UNITS/ML 65 UNITS SUB-Q (08:13)
[2021-08-11] MEDS: REMDESIVIR 100 MG/NS 250 ML 100 MG/250 ML BAG 250 MG IVPB (09:58)
[2021-08-11] MEDS: BARICITINIB 2 MG TABLET PO (10:03)
[2021-08-11] MEDS: ALBUMIN HUMAN 25% 25 GM/100 ML 100 ML IVPB ×3 (11:06→12:46)
--- NOTE | 2021-08-11 11:29 | WPDINTPN ---
Progress Note: A&P Assessment and Plan (1) Acute respiratory failure: Code(s): J96.00 - Acute respiratory failure, unspecified whether with hypoxia or hypercapnia Status: Acute Assessment and Plan: Acute Respiratory failure secondary to COVID-19 pneumonia with gradual worsening during the hospital course. 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) after rapid response as he was tachypneic, tachycardic and desaturating -chest x-ray and ABGs reviewed, on CMV mode, 100% FiO2 peep of 16 wean FiO2 as tolerated to maintain O2 sats > 88% -continue Flolan -sedated with fentanyl and Versed infusion, patient also on Nimbex for neuromuscular blockade and ventilator synchrony -08/10/2021: Patient had a cardiac arrest and was hypoxic for prolonged amount of time despite placing the patient in prone position, increasing the PEEP to 20 and patient on Flolan -will continue to place patient in prone position for now due to hypoxia and risk for cardiac arrest -Continue full mechanical ventilation support to prevent hypoxemia/hypercarbia and end organ damage. -Low tidal volume ventilation strategy to prevent volutrauma -08/08: sputum cultures growing MRSA which is cerda susceptible, continue vancomycin and Zosyn (2) COVID-19: Code(s): U07.1 - COVID-19 Status: Acute Assessment and Plan: COVID-19 positive on 07/29/2021. Presented to the hospital with worsening shortness of breath on 08/01/2021 and was intubated on 08/05/2021 - The patient is unvaccinated. -contact, droplet, airborne precautions and isolation. -dexamethasone started on 08/02, was switched to hydrocortisone for stress dose steroids on 08/05 - He has completed course of remdesivir, will re-dose Remdesivir starting 08/07/2020 - Continue Baricitinib (started 08/02) -continue vitamin-C, vitamin-D, zinc (3) Mixed hyperlipidemia: Code(s): E78.2 - Mixed hyperlipidemia Status: Chronic Assessment and Plan: Hold atorvastatin due to elevated liver enzymes (4) NSTEMI (non-ST elevated myocardial infarction): Code(s): I21.4 - Non-ST elevation (NSTEMI) myocardial infarction Status: Acute Assessment and Plan: elevated troponin likely secondary to cardiac arrest and hypoxia - EKG shows sinus tachycardia nonspecific changes. Elevated troponin -appreciate cardiology evaluation recommendation, recommended continue aspirin and therapeutic enoxaparin -08/07: Echocardiogram EF 55%, grade 2 diastolic dysfunction, moderate aortic stenosis, mild pulmonary hypertension (5) Shock: Code(s): R57.9 - Shock, unspecified Status: Acute Assessment and Plan: mixed shock secondary to cardiac arrest, hypovolemia, positive pressure ventilation, sepsis - conservative IV fluids due to COVID- pneumonia and ARDS - 08/05 2 L bolus given status post Levophed and vasopressin - -08/08/2021 sputum cultures growing MRSA, cerda susceptible, continue vancomycin, Zosyn. Will add levofloxacin on 08/11 has patient's WBC count is trending up which could also be related to steroids and or MRSA pneumonia 08/10/2021: Patient had a cardiac arrest and after that patient went into shock requiring starting him again on Levophed, will maintain mean arterial pressures > than 70 mmHg for better and organ perfusion Remains on stress dose steroids -lactic acid levels trending down (6) Hyperglycemia: Code(s): R73.9 - Hyperglycemia, unspecified Status: Acute Assessment and Plan: Continue Accu-Cheks and sliding scale insulin q.4 hours Will increase Lantus today HbA1c 6.3 (7) Dietary counseling and surveillance: Code(s): Z71.3 - Dietary counseling and surveillance Status: Acute Assessment and Plan: continue Glucerna, tolerating, advance to goal (8) Cardiac arrest: Code(s): I46.9 - Cardiac arrest, cause unspecified Status: Acute Assessment and Plan: 08/05/2021 primarily second
--- NOTE | 2021-08-11 11:38 | PCNFU ---
Nutrition Follow-Up Complete: Inadequate Oral intake as related to mechanical ventilation as evidenced by NPO. Goal: Meet estimated nutritional needs Patient is progressing towards goal. Pt current nutrition is Glucerna 1.2 at 50 ml/hr over 22 hours. Last recorded weight is 111.3 kg, up from 106.8 kg on admit. Bowel Motility:+BM reported 08/09 Labs Reviewed:Glu 276,GFR 46, BUN 67, Cr 1.5,Alb 1.9,Na 134 Meds Noted:Reglan,Fentanyl, Versed, Levophed, Protonix, Zosyn, Vit C, Vit D, Vit B12, Vit B6, Flolan, Nimbex, MVI, Zinc, NovoLog, Lantus, Olumiant, Levaquin. Skin: WNL Additional Notes: Patient remains on mechanical vent and tube feeding of Glucerna 1.2. Code Blue called yesterday. Tube feedings held. Nursing reported patient not tolerating tube feedings overnight. Tube feedings have been restarted, currently at 50 ml/hr, patient is on Reglan. Goal rate of tube feedings at 75 ml/hr over 22 hours,which will provide 1980 kcals/99 gms protein/ 1328 ml water. Free water flush 30 ml q 4 hours. Agree with diet orders. Will monitor in ICU rounds and reassessing every Saturday and Saturday.
[2021-08-11 11:45] LABS: Glucose Point of Care 265 mg/dl (65-105)
--- NOTE | 2021-08-11 11:53 | PM.PNNEP ---
Progress Note: A&P Assessment and Plan (1) Acute kidney injury: Code(s): N17.9 - Acute kidney failure, unspecified Status: Acute Assessment and Plan: creatinine back up again - not surprising given events in the last 24 hours multifactorial etiology: cardiac arrest shock prerenal factors/hypovolemia hypoxia urine output fluctuating evaluation to date: renal ultrasound normal CPK mildly elevated (but not enough to affect kidney function) urine electrolytes suggest prerenal azotemia follow repeat labs and UOP (2) Acute respiratory failure: Code(s): J96.00 - Acute respiratory failure, unspecified whether with hypoxia or hypercapnia Status: Acute Assessment and Plan: secondary to COVID-19 pneumonia on full mechanical ventilator support also requiring paralytics in addition to sedation prone position as tolerated continue supportive care (3) Cardiac arrest: Code(s): I46.9 - Cardiac arrest, cause unspecified Status: Acute Assessment and Plan: primarily secondary to respiratory failure and hypoxia another cardiac arrest on 08/10/21 Cardiology following telemetry monitoring (4) Pneumonia due to COVID-19 virus: Code(s): U07.1 - COVID-19; J12.82 - Pneumonia due to coronavirus disease 2018 Status: Acute Assessment and Plan: COVID-19 positive on 07/29/2021 unvaccinated decadron started on 08/02 but switched to hydrocortisone for stress dose steroids on 08/05 s/p remdesivir; redosing started on 08/07/21 also on baricitinib (started 08/02) (5) Shock: Code(s): R57.9 - Shock, unspecified Status: Acute Assessment and Plan: due to cardiac arrest (x 2), hypovolemia, positive pressure ventilation, sepsis minimize IVFs due to COVID-19 pneumonia and ARDS back on vasopressor therapy continue stress dose steroids Subjective Date/time seen: 08/11/21 11:53 Cardiac arrest yesterday afternoon (code blue note/documentation noted); remains intubated/sedated/paralyzed on on full ventilator support; on vasopressor therapy post cardiac arrest to maintain MAP; continues to make reasonably urine output but creatinine fluctuating; no other issues to report Exam Narrative: General: ill appearing male intubated/sedated/paralyzed Heart: normal S1 and S2; no rub Lungs: coarse breath sounds throughout Abdomen: soft, nontender, nondistended, positive bowel sounds Extremities: no cyanosis or clubbing; no edema Skin: warm and intact Objective Data Vital Signs Vital Signs: Vital Signs Temp Pulse Resp BP Pulse Ox 08/11/21 10:46 60 30 H 98 08/11/21 10:25 56 L 126/58 L 08/11/21 10:00 56 L 30 H 126/58 L 98 08/11/21 08:33 57 L 97 08/11/21 08:29 58 L 30 H 97 08/11/21 08:10 60 101/57 L 08/11/21 08:00 35.9 C L 62 30 H 101/57 L 93 08/11/21 07:40 57 L 125/62 08/11/21 07:15 60 101/57 L 08/11/21 06:14 96 30 H 97 08/11/21 06:07 94 30 H 08/11/21 06:00 59 L 30 H 131/65 95 08/11/21 05:45 91 119/73 08/11/21 05:20 84 112/72 08/11/21 05:00 89 118/68 08/11/21 04:19 89 30 H 93 08/11/21 04:00 35.9 C L 88 30 H 109/72 93 08/11/21 02:19 102 H 30 H 91 08/11/21 02:00 99 30 H 109/63 92 08/11/21 00:34 109 H 30 H 90 08/11/21 00:00 36.2 C L 109 H 30 H 95/67 L 88 L 08/10/21 23:27 112 H 103/58 L 08/10/21 23:26 106 H 30 H 103/69 08/10/21 22:46 108 H 82/53 L 08/10/21 22:31 109 H 30 H 86 L 08/10/21 22:00 119 H 30 H 91/57 L 86 L 08/10/21 21:38 120 H 90/66 L 08/10/21 20:00 36.9 C 115 H 30 H 93/61 L 08/10/21 19:41 118 H 30 H 83 L 08/10/21 18:37 113 H 08/10/21 18:36 93/58 L 08/10/21 18:35 119 H 30 H 08/10/21 18:33 122 H 30 H 93/58 L 08/10/21 18:11 115 H 30 H 08/10/21 18:10 115 H 08/10/21 18:00 124 H 30 H 100/53 L
--- NOTE | 2021-08-11 11:53 | P.PNNP_ITS ---
Progress Note: A&P Assessment and Plan (1) Acute kidney injury: Code(s): N17.9 - Acute kidney failure, unspecified Status: Acute Assessment and Plan: * creatinine back up again - not surprising given events in the last 24 hours * multifactorial etiology: * cardiac arrest * shock * prerenal factors/hypovolemia * hypoxia * urine output fluctuating * evaluation to date: * renal ultrasound normal * CPK mildly elevated (but not enough to affect kidney function) * urine electrolytes suggest prerenal azotemia * follow repeat labs and UOP (2) Acute respiratory failure: Code(s): J96.00 - Acute respiratory failure, unspecified whether with hypoxia or hypercapnia Status: Acute Assessment and Plan: * secondary to COVID-19 pneumonia * on full mechanical ventilator support * also requiring paralytics in addition to sedation * prone position as tolerated * continue supportive care (3) Cardiac arrest: Code(s): I46.9 - Cardiac arrest, cause unspecified Status: Acute Assessment and Plan: * primarily secondary to respiratory failure and hypoxia * another cardiac arrest on 08/10/21 * Cardiology following * telemetry monitoring (4) Pneumonia due to COVID-19 virus: Code(s): U07.1 - COVID-19; J12.82 - Pneumonia due to coronavirus disease 2018 Status: Acute Assessment and Plan: * COVID-19 positive on 07/29/2021 * unvaccinated * decadron started on 08/02 but switched to hydrocortisone for stress dose steroids on 08/05 * s/p remdesivir; redosing started on 08/07/21 * also on baricitinib (started 08/02) (5) Shock: Code(s): R57.9 - Shock, unspecified Status: Acute Assessment and Plan: * due to cardiac arrest (x 2), hypovolemia, positive pressure ventilation, sepsis * minimize IVFs due to COVID-19 pneumonia and ARDS * back on vasopressor therapy * continue stress dose steroids Subjective Date/time seen: 08/11/21 11:53 Cardiac arrest yesterday afternoon (code blue note/documentation noted); remains intubated/sedated/paralyzed on on full ventilator support; on vasopressor therapy post cardiac arrest to maintain MAP; continues to make reasonably urine output but creatinine fluctuating; no other issues to report Exam Narrative: General: ill appearing male intubated/sedated/paralyzed Heart: normal S1 and S2; no rub Lungs: coarse breath sounds throughout Abdomen: soft, nontender, nondistended, positive bowel sounds Extremities: no cyanosis or clubbing; no edema Skin: warm and intact Objective Data Vital Signs Vital Signs: Vital Signs Temp Pulse Resp BP Pulse Ox 08/11/21 10:46 60 30 H 98 08/11/21 10:25 56 L 126/58 L 08/11/21 10:00 56 L 30 H 126/58 L 98 08/11/21 08:33 57 L 97 08/11/21 08:29 58 L 30 H 97 08/11/21 08:10 60 101/57 L 08/11/21 08:00 35.9 C L 62 30 H 101/57 L 93 08/11/21 07:40 57 L 125/62 08/11/21 07:15 60 101/57 L 08/11/21 06:14 96 30 H 97 08/11/21 06:07 94 30 H 08/11/21 06:00 59 L 30 H 131/65 95 08/11/21 05:45 91 119/73 08/11/21 05:20 84 112/72 08/11/21 05:00 89 118/68 08/11/21 04:19 89 30 H 93 08/11/21 04:00 35.9 C L 88 30 H 109/72 93 08/11/21 02:19 102 H 30 H
[2021-08-11] MEDS: MIDAZOLAM 100MG/NS 100ML(*CRX) 100 MG/100 ML BAG IV CONT (12:31)
--- NOTE | 2021-08-11 13:06 | WPDCN ---
Assessment and Plan Assessment and plan (1) Traumatic hematoma of ear canal: Code(s): S00.439A - Contusion of unspecified ear, initial encounter Status: Acute Assessment and Plan: recommend placing Afrin in the ear canal 2 times per day cotton in the ear canal the bleeds if not bleeding remove the cotton. Bleeding likely from trauma to the anterior-inferior region not sure etiology of trauma. Unlikely skull base fracture. Please call me with any questions and/or concerns [phone] [facility] Data of Consult Date/Time: 08/11/21 13:06 Requesting Physician: Aby Gonzales MD Primary Care Provider: Ledy Black NP Consult Narrative Narrative: Zenon Worrell is a 71 year old male With bleeding from the right EAC. ENT consult because of bleeding. Concern for skull base fracture. Patient is too unstable to scan to see if the skull base fractures this. Skull base fracture would of been from fall approximately 10 days ago. 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 He has 1 child. He retired from [employer]. He occasionally has a drink a beer he is a former smoker. Does not use any marijuana or illicit drugs. Code status full code Smoking packs per day: 2 Smoking cigarettes per day: 40.0 Smoking status: Former smoker Tobacco type: cigarettes Second hand tobacco smoke exposure: No Alcohol intake: current Drinks per week: 1 Alcohol use details: Occasionally Substance use: never Substance use type: does not use Gender identity (if verbalized by the patient): Male Sexual Orientation (if Verbalized by the Patient): Straight or Heterosexual Spiritual care concerns: No Meds Home Medications and Allergies Home Medications Medication Instructions Recorded Confirmed Type multivitamin 1 tablet PO DAILY 05/28/19 08/01/21 History celecoxib 200 mg capsule 200 mg PO BID #180 cap 11/08/20 08/01/21 Rx hydrocodone 5 mg-acetaminophen 325 1 tablet PO Q6H PRN #120 tablet 02/14/21 08/01/21 Rx mg tablet atorvastatin 20 mg tablet 20 mg PO DAILY #90 tablet 03/16/21 08/01/21 Rx mirabegron 50 mg tablet,extended 50 mg PO DAILY #90 tablet 03/16/21 08/01/21 Rx release 24 hr cholecalciferol (vitamin D3) 25 1,000 unit PO DAILY #90 tablet 03/20/21 08/01/21 Rx mcg (1,000 unit) tablet blood sugar diagnostic #50 ea 07/05/21 08/01/21 Rx blood-glucose meter #1 ea 07/05/21 08/01/21 Rx ascorbic acid (vitamin C) [Vitamin 1 g PO DAILY 08/01/21 08/01/21 History C] aspirin [Adult Aspirin] 81 mg PO DAILY 08/01/21 08/01/21 History cyanocobalamin (vitamin B-12) 500 mcg PO DAILY 08/01/21 08/01/21 History [Vitamin B-12] pyridoxine (vitamin B6) [Vitamin 100 mg PO DAILY 08/01/21 08/01/21 History B-6] zinc 50 mg PO DAILY 08/01/21 08/01/21 History losartan 100 mg PO DAILY 08/02/21 08/02/21 History Allergies Allergy/AdvReac Type Severity Reaction Status Date / Time No Known Allergies Allergy Mild Verified 08/01/21 18:51 Vital Signs Vital Signs - 24 hr 08/10/21 14:00 08/10/21 14:08 08/10/21 14:27 Temperature Pulse Rate 1
[2021-08-11 18:09] LABS: Vancomycin Trough 17.8 ug/mL (10.0-20.0)
[2021-08-11 18:34] LABS: Glucose Point of Care 206 mg/dl (65-105)
[2021-08-11] MEDS: NOREPINEPHRINE 8 MG/D5W 250 ML 8 MG/250 ML BAG 22.5 MG IV CONT (21:01)
[2021-08-11 23:40] LABS: Glucose Point of Care 89 mg/dl (65-105)
[2021-08-12] VITALS (30 sets, daily range): BP systolic 108–167; BP diastolic 51–70; PULSE 60–101; RESP 30; TEMP 36.3–36.9; O2SAT 91–100
[2021-08-12] MEDS: ALBUMIN HUMAN 25% 25 GM/100 ML 100 ML IVPB ×3 (01:00→11:59)
[2021-08-12] MEDS: EPOPROSTENOL SODIUM 0.5 MG VIAL 1 MG INHALATION ×3 (02:25→14:10)
[2021-08-12 04:39] LABS: Base Excess ABG 5.7 mEq/l (+/-2.0); Carboxyhemoglobin 0.3 % THb (0-2.0); Fractional Inspired Oxygen 100 %; HCO3 ABG 31.5 mEq/l (22.0-26.0); Methemoglobin ABG 0.6 %THb (0-1.5); Oxygen Content ABG 15.4 %vol (16.0-22.0); Oxyhemoglobin 96.1 % THb (90.0-100.0); PCO2 ABG 51.6 mmHg (35.0-45.0); PO2 ABG 111.4 mmHg (80.0-100.0); PO2 FiO2 Ratio Arterial Blood 1.11 %; Total Hemoglobin 11.3 g/dL (12.0-18.0); pH ABG 7.404 (7.350-7.450)
[2021-08-12 04:40] LABS: Device VENTILATOR; Modified Allen's Test Pass; Site Drawn RIGHT RADIAL
[2021-08-12 04:41] LABS: Arterial Blood Gas PEEP 16 cmH2O; Arterial Blood Gas Vent Mode CMV; Arterial Blood Gas Ventilator rate 30 /MIN
[2021-08-12 04:42] LABS: Arterial Blood Gas Tidal Volume 450 ml
[2021-08-12] MEDS: METOCLOPRAMIDE HCL 10 MG/10 ML SOLN UDC FEED TUBE ×2 (05:22→12:02)
[2021-08-12] MEDS: MIDAZOLAM 100MG/NS 100ML(*CRX) 100 MG/100 ML BAG IV CONT (05:22)
[2021-08-12] MEDS: HYDROCORTISONE SODIUM SUCCINATE 100 MG/2 ML VIAL IV PUSH (05:26)
[2021-08-12] MEDS: CISATRACURIUM BESYLATE 200 MG in DEXTROSE 5% 80 ML 14.69 ML IV CONT (05:30)
[2021-08-12 05:58] LABS: Basophils Absolute Auto 0.1 K/mm3 (0.0-0.1); Basophils Percent Auto 0.4 % (0.2-1.2); Hematocrit 26.4 % (42.0-52.0); Hemoglobin 8.7 g/dL (14.0-18.0); Immature Granulocyte Absolute 1.45 K/mm3 (0.00-0.031); Immature Granulocyte Percent A 4.8 % (0-0.5); Lymphocytes Absolute Auto 0.53 K/mm3 (0.9-3.2); Lymphocytes Percent Auto 1.8 % (18.3-44.2); Mean Corpuscular Volume 97.1 fl (80-100); Mean Platelet Volume 12.3 fl (7.4-10.4); Monocytes Absolute Auto 0.7 K/mm3 (0.1-0.6); Monocytes Percent Auto 2.2 % (2.6-8.5); Neutrophils Absolute Auto 27.1 K/mm3 (1.3-6.7); Neutrophils Percent Auto 90.8 % (45.5-73.1); Platelet Count Result 206 k/mm3 (150-375); Red Blood Count 2.72 M/mm3 (4.6-6.20); Red Cell Distribution Width 14.5 % (11.5-14.5); White Blood Count 29.9 K/mm3 (4.5-10.0)
[2021-08-12 06:12] LABS: Alanine Aminotransferase 43 U/L (4-50); Albumin Level 2.6 g/dL (3.5-5.1); Alkaline Phosphatase 99 U/L (38-126); Aspartate Amino Transferase 96 U/L (17-59); Bilirubin,Total 0.8 mg/dL (0.2-1.3); Blood Urea Nitrogen 73 mg/dL (9-20); Calcium 7.7 mg/dL (8.4-10.2); Carbon Dioxide > 40 mmol/L (22-30); Chloride 95 mmol/L (98-107); Estimated CRCL calculation 47 ml/min; Estimated Glomerular Filt Rate 40; Glucose 50 mg/dL (65-110); Magnesium 2.6 mg/dL (1.6-2.3); Phosphorus 3.8 mg/dL (2.5-4.5); Sodium 136 mmol/L (137-145)
[2021-08-12] MEDS: DEXTROSE 50% 25 GM/50 ML SYRINGE IV PUSH (06:20)
[2021-08-12] MEDS: CENTRAL LINE FLUSH 10 ML IV PUSH ×2 (06:25→15:18)
[2021-08-12 06:59] LABS: Glucose Point of Care 135 mg/dl (65-105)
[2021-08-12 06:59] LABS: Glucose Point of Care 58 mg/dl (65-105)
[2021-08-12 07:26] LABS: INR 1.7; Prothrombin Time 19.2 Seconds (11.1-14.7)
[2021-08-12 07:40] LABS: Platelet Estimate Adequate (Adequate)
[2021-08-12 07:41] LABS: Rouleaux 2+ (NORMAL)
[2021-08-12] MEDS: ASCORBIC ACID 500 MG TABLET 1000 MG PO (08:42)
[2021-08-12] MEDS: MINERAL OIL/WHITE PETROLATUM OINTMENT 1 APPLIC EACH EYE (08:42)
[2021-08-12] MEDS: PANTOPRAZOLE SODIUM IV 40 MG VIAL IV PUSH (08:43)
[2021-08-12] MEDS: ZINC SULFATE 220 MG CAPSULE PO (08:43)
[2021-08-12] MEDS: polyethylene glycoL 3350 17 GM POWD.PACK PO (08:43)
[2021-08-12] MEDS: PYRIDOXINE HCL 50 MG TABLET 100 MG PO (08:43)
[2021-08-12] MEDS: MULTIVITAMINS THERAPEUTIC TAB (*BKC) 1 TABLET PO (08:44)
[2021-08-12] MEDS: CYANOCOBALAMIN 500 MCG TABLET PO (08:44)
[2021-08-12] MEDS: CHOLECALCIFEROL 1,000 UNITS TABLET 1000 UNITS PO (08:44)
[2021-08-12] MEDS: INSULIN GLARGINE (*BKC) 100 UNITS/ML 35 UNITS SUB-Q (08:47)
--- NOTE | 2021-08-12 09:13 | WPDINTPN ---
Progress Note: A&P Assessment and Plan (1) Acute respiratory failure: Code(s): J96.00 - Acute respiratory failure, unspecified whether with hypoxia or hypercapnia Status: Acute Assessment and Plan: Acute Respiratory failure secondary to COVID-19 pneumonia with gradual worsening during the hospital course. 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) after rapid response as he was tachypneic, tachycardic and desaturating -chest x-ray and ABGs reviewed, on CMV mode, 100% FiO2 peep of 16 wean FiO2 as tolerated to maintain O2 sats > 88% -continue Flolan -sedated with fentanyl and Versed infusion, patient also on Nimbex for neuromuscular blockade and ventilator synchrony -08/10/2021: Patient had a cardiac arrest and was hypoxic for prolonged amount of time despite placing the patient in prone position, increasing the PEEP to 20 and patient on Flolan -will place patient in supine position this morning -also place patient in prone position for 16-18 hours a day starting this afternoon -Continue full mechanical ventilation support to prevent hypoxemia/hypercarbia and end organ damage. -Low tidal volume ventilation strategy to prevent volutrauma -08/08: sputum cultures growing MRSA which is cerda susceptible, continue vancomycin and Zosyn 08/05. -levofloxacin was added on 08/11 (2) COVID-19: Code(s): U07.1 - COVID-19 Status: Acute Assessment and Plan: COVID-19 positive on 07/29/2021. Presented to the hospital with worsening shortness of breath on 08/01/2021 and was intubated on 08/05/2021 - The patient is unvaccinated. -contact, droplet, airborne precautions and isolation. -dexamethasone started on 08/02, was switched to hydrocortisone for stress dose steroids on 08/05 - He has completed 10 days course of remdesivir - Continue Baricitinib (started 08/02) -continue vitamin-C, vitamin-D, zinc (3) Shock: Code(s): R57.9 - Shock, unspecified Status: Acute Assessment and Plan: mixed shock secondary to cardiac arrest, hypovolemia, positive pressure ventilation, sepsis - conservative IV fluids due to COVID-19 pneumonia and ARDS - 08/05 2 L bolus given status post Levophed and vasopressin - -08/08/2021 sputum cultures growing MRSA, cerda susceptible, continue vancomycin, Zosyn. Will add levofloxacin on 08/11 has patient's WBC count is trending up which could also be related to steroids and or MRSA pneumonia 08/10/2021: Patient had a cardiac arrest and after that patient went into shock requiring starting him again on Levophed, will maintain mean arterial pressures > than 70 mmHg for better and organ perfusion Remains on stress dose steroids -lactic acid levels trending down -Levophed being weaned off (4) NSTEMI (non-ST elevated myocardial infarction): Code(s): I21.4 - Non-ST elevation (NSTEMI) myocardial infarction Status: Acute Assessment and Plan: elevated troponin likely secondary to cardiac arrest and hypoxia - EKG shows sinus tachycardia nonspecific changes. Elevated troponin -appreciate cardiology evaluation recommendation, recommended continue aspirin and therapeutic enoxaparin -08/07: Echocardiogram EF 55%, grade 2 diastolic dysfunction, moderate aortic stenosis, mild pulmonary hypertension (5) Hyperglycemia: Code(s): R73.9 - Hyperglycemia, unspecified Status: Acute Assessment and Plan: Continue Accu-Cheks and sliding scale insulin q.4 hours Blood sugars have been low, will decrease Lantus HbA1c 6.3 (6) Dietary counseling and surveillance: Code(s): Z71.3 - Dietary counseling and surveillance Status: Acute Assessment and Plan: continue Glucerna, tolerating, advance to goal (7) Cardiac arrest: Code(s): I46.9 - Cardiac arrest, cause unspecified Status: Acute Assessment and Plan: 08/05/2021 primarily secondary to respiratory failure and hypoxia 08/10/2021: Patient again had a cardiac arres
[2021-08-12] MEDS: FENTANYL 2,500MCG/NS250ML(*CRX 2,500 MCG/250 ML BAG 15 MCG IV CONT (09:54)
[2021-08-12] MEDS: BARICITINIB 2 MG TABLET PO (09:57)
--- NOTE | 2021-08-12 12:00 | PM.PNNEP ---
Progress Note: A&P Assessment and Plan (1) Acute kidney injury: Code(s): N17.9 - Acute kidney failure, unspecified Status: Acute Assessment and Plan: creatinine back up again multifactorial etiology: cardiac arrest x 2 shock prerenal factors/hypovolemia hypoxia urine output fluctuating evaluation to date: renal ultrasound normal CPK mildly elevated (but not enough to affect kidney function) urine electrolytes suggest prerenal azotemia follow repeat labs and UOP (2) Acute respiratory failure: Code(s): J96.00 - Acute respiratory failure, unspecified whether with hypoxia or hypercapnia Status: Acute Assessment and Plan: secondary to COVID-19 pneumonia on full mechanical ventilator support also requiring paralytics in addition to sedation prone position as tolerated continue supportive care (3) Cardiac arrest: Code(s): I46.9 - Cardiac arrest, cause unspecified Status: Acute Assessment and Plan: primarily secondary to respiratory failure and hypoxia another cardiac arrest on 08/10/21 Cardiology following telemetry monitoring (4) Pneumonia due to COVID-19 virus: Code(s): U07.1 - COVID-19; J12.82 - Pneumonia due to coronavirus disease 2018 Status: Acute Assessment and Plan: COVID-19 positive on 07/29/2021 unvaccinated decadron started on 08/02 but switched to hydrocortisone for stress dose steroids on 08/05 s/p remdesivir; redosing started on 08/07/21 also on baricitinib (started 08/02) (5) Shock: Code(s): R57.9 - Shock, unspecified Status: Acute Assessment and Plan: due to cardiac arrest (x 2), hypovolemia, positive pressure ventilation, sepsis minimize IVFs due to COVID-19 pneumonia and ARDS back on vasopressor therapy continue stress dose steroids Subjective Date/time seen: 08/12/21 12:00 No significant change since last seen - intubated/sedated/paralyzed and remains on mechanical ventilation; still requiring low dose vasopressor therapy to maintain MAP; making reasonable urine output but creatinine is slowly rising; no other acute issues/events overnight or earlier this AM. Exam Narrative: General: ill appearing male intubated/sedated/paralyzed Heart: normal S1 and S2; no rub Lungs: coarse breath sounds throughout Abdomen: soft, nontender, nondistended, positive bowel sounds Extremities: no cyanosis or clubbing; no edema Skin: warm and intact Objective Data Vital Signs Vital Signs: Vital Signs - 24 hr 08/12/21 04:20 08/12/21 05:22 08/12/21 05:24 Temperature Pulse Rate 60 61 Respiratory Rate 30 H 30 H Blood Pressure 119/55 L Pulse Oximetry 99 08/12/21 05:30 08/12/21 06:00 08/12/21 06:07 Temperature 36.9 C Pulse Rate 62 66 60 Respiratory Rate 30 H 30 H 30 H Blood Pressure 108/51 L Pulse Oximetry 98 98 08/12/21 06:24 08/12/21 08:00 08/12/21 08:34 Temperature 36.5 C Pulse Rate 67 65 Respiratory Rate 30 H 30 H Blood Pressure 108/51 L 109/52 L Pulse Oximetry 100 100 08/12/21 09:54 08/12/21 09:55 08/12/21 10:00 Temperature 36.4 C Pulse Rate 68 68 68 Respiratory Rate 30 H 30 H Blood Pressure 108/52 L 110/53 L Pulse Oximetry 100 08/12/21 10:40 08/12/21 11:45 08/12/21 12:00 Temperature 36.3 C L Pulse Rate 67 98 95 Respiratory Rate 30 H 30 H Blood Pressure 153/62 H 167/70 H Pulse Oximetry 100 100 Intake/Output Intake/Output: Intake & Output 08/09/21 08/10/21 08/11/21 08/12/21 23:59 23:59 23:59 23:59 Intake Total 3840 3790.2 2986.1 1296 Output Total 2100 2185 1285 1025 Balance 1740 1605.2 1701.1 271 Meds/Results Medications: Active Medications Generic Name Dose Route Start Last Admin Trade Name Freq PRN Reason Stop Dose Admin Albuterol 2 puff 08/02/21 02:00 08/05/21 08:02 Albuterol Sulfate (*Sp) Aerosol 1 Puff INHALATION Not Given Q6HRT KEILY Ascorbic Acid 1,000 mg 0
--- NOTE | 2021-08-12 12:00 | P.PNNP_ITS ---
Progress Note: A&P Assessment and Plan (1) Acute kidney injury: Code(s): N17.9 - Acute kidney failure, unspecified Status: Acute Assessment and Plan: * creatinine back up again * multifactorial etiology: * cardiac arrest x 2 * shock * prerenal factors/hypovolemia * hypoxia * urine output fluctuating * evaluation to date: * renal ultrasound normal * CPK mildly elevated (but not enough to affect kidney function) * urine electrolytes suggest prerenal azotemia * follow repeat labs and UOP (2) Acute respiratory failure: Code(s): J96.00 - Acute respiratory failure, unspecified whether with hypoxia or hypercapnia Status: Acute Assessment and Plan: * secondary to COVID-19 pneumonia * on full mechanical ventilator support * also requiring paralytics in addition to sedation * prone position as tolerated * continue supportive care (3) Cardiac arrest: Code(s): I46.9 - Cardiac arrest, cause unspecified Status: Acute Assessment and Plan: * primarily secondary to respiratory failure and hypoxia * another cardiac arrest on 08/10/21 * Cardiology following * telemetry monitoring (4) Pneumonia due to COVID-19 virus: Code(s): U07.1 - COVID-19; J12.82 - Pneumonia due to coronavirus disease 2018 Status: Acute Assessment and Plan: * COVID-19 positive on 07/29/2021 * unvaccinated * decadron started on 08/02 but switched to hydrocortisone for stress dose steroids on 08/05 * s/p remdesivir; redosing started on 08/07/21 * also on baricitinib (started 08/02) (5) Shock: Code(s): R57.9 - Shock, unspecified Status: Acute Assessment and Plan: * due to cardiac arrest (x 2), hypovolemia, positive pressure ventilation, sepsis * minimize IVFs due to COVID-19 pneumonia and ARDS * back on vasopressor therapy * continue stress dose steroids Subjective Date/time seen: 08/12/21 12:00 No significant change since last seen - intubated/sedated/paralyzed and remains on mechanical ventilation; still requiring low dose vasopressor therapy to maintain MAP; making reasonable urine output but creatinine is slowly rising; no other acute issues/events overnight or earlier this AM. Exam Narrative: General: ill appearing male intubated/sedated/paralyzed Heart: normal S1 and S2; no rub Lungs: coarse breath sounds throughout Abdomen: soft, nontender, nondistended, positive bowel sounds Extremities: no cyanosis or clubbing; no edema Skin: warm and intact Objective Data Vital Signs Vital Signs: Vital Signs - 24 hr 08/12/21 04:20 08/12/21 05:22 08/12/21 05:24 Temperature Pulse Rate 60 61 Respiratory Rate 30 H 30 H Blood Pressure 119/55 L Pulse Oximetry 99 08/12/21 05:30 08/12/21 06:00 08/12/21 06:07 Temperature 36.9 C Pulse Rate 62 66 60 Respiratory Rate 30 H 30 H 30 H Blood Pressure 108/51 L Pulse Oximetry 98 98 08/12/21 06:24 08/12/21 08:00 08/12/21 08:34 Temperature 36.5 C Pulse Rate 67 65 Respiratory Rate 30 H 30 H Blood Pressure 108/51 L 109/52 L Pulse Oximetry 100 100 08/12/21 09:54 08/12/21 09:55 08/12/21 10:00 Temperature 36.4 C Pulse Rate 68 68 68 Respiratory Rate 30 H
[2021-08-12 12:24] LABS: Glucose Point of Care 102 mg/dl (65-105)
[2021-08-12] MEDS: CISATRACURIUM BESYLATE 200 MG in DEXTROSE 5% 80 ML 17.62 ML IV CONT (12:50)
[2021-08-12 14:13] LABS: Chloride Rand Ur <20 mmol/L (32-290); Creatinine Random Urine 120 mg/dL (20-320)
--- NOTE | 2021-08-12 17:05 | PM.IMPN ---
Progress Note: A&P Assessment and Plan (1) Acute respiratory failure: Code(s): J96.00 - Acute respiratory failure, unspecified whether with hypoxia or hypercapnia Status: Acute Assessment and Plan: Acute Respiratory failure secondary to COVID-19 pneumonia with gradual worsening during the hospital course. 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) after rapid response as he was tachypneic, tachycardic and desaturating -chest x-ray and ABGs reviewed, on CMV mode, 100% FiO2 peep of 16 wean FiO2 as tolerated to maintain O2 sats > 88% -continue Flolan -sedated with fentanyl and Versed infusion, patient also on Nimbex for neuromuscular blockade and ventilator synchrony -08/10/2021: Patient had a cardiac arrest and was hypoxic for prolonged amount of time despite placing the patient in prone position, increasing the PEEP to 20 and patient on Flolan -Continue full mechanical ventilation support to prevent hypoxemia/hypercarbia and end organ damage. -Low tidal volume ventilation strategy to prevent volutrauma -08/08: sputum cultures growing MRSA which is cerda susceptible, continue vancomycin and Zosyn 08/05. -levofloxacin was added on 08/11 (2) COVID-19: Code(s): U07.1 - COVID-19 Status: Acute Assessment and Plan: COVID-19 positive on 07/29/2021. Presented to the hospital with worsening shortness of breath on 08/01/2021 and was intubated on 08/05/2021 - The patient is unvaccinated. -contact, droplet, airborne precautions and isolation. -dexamethasone started on 08/02, was switched to hydrocortisone for stress dose steroids on 08/05 - He has completed 10 days course of remdesivir - Continue Baricitinib (started 08/02) -continue vitamin-C, vitamin-D, zinc (3) Shock: Code(s): R57.9 - Shock, unspecified Status: Acute Assessment and Plan: mixed shock secondary to cardiac arrest, hypovolemia, positive pressure ventilation, sepsis - conservative IV fluids due to COVID-19 pneumonia and ARDS - 08/05 2 L bolus given status post Levophed and vasopressin - -08/08/2021 sputum cultures growing MRSA, cerda susceptible, continue vancomycin, Zosyn. Will add levofloxacin on 02/25 has patient's WBC count is trending up which could also be related to steroids and or MRSA pneumonia 08/10/2021: Patient had a cardiac arrest and after that patient went into shock requiring starting him again on Levophed, will maintain mean arterial pressures > than 70 mmHg for better and organ perfusion Remains on stress dose steroids -lactic acid levels trending down -Levophed being weaned off (4) NSTEMI (non-ST elevated myocardial infarction): Code(s): I21.4 - Non-ST elevation (NSTEMI) myocardial infarction Status: Acute Assessment and Plan: elevated troponin likely secondary to cardiac arrest and hypoxia - EKG shows sinus tachycardia nonspecific changes. Elevated troponin -appreciate cardiology evaluation recommendation, recommended continue aspirin and therapeutic enoxaparin -08/07: Echocardiogram EF 55%, grade 2 diastolic dysfunction, moderate aortic stenosis, mild pulmonary hypertension (5) Hyperglycemia: Code(s): R73.9 - Hyperglycemia, unspecified Status: Acute Assessment and Plan: Continue Accu-Cheks and sliding scale insulin q.4 hours Blood sugars have been low, will decrease Lantus HbA1c 6.3 (6) Dietary counseling and surveillance: Code(s): Z71.3 - Dietary counseling and surveillance Status: Acute Assessment and Plan: continue Glucerna, tolerating, advance to goal (7) Cardiac arrest: Code(s): I46.9 - Cardiac arrest, cause unspecified Status: Acute Assessment and Plan: 08/05/2021 primarily secondary to respiratory failure and hypoxia 08/10/2021: Patient again had a cardiac arrest for 4 minutes before ROSC, patient had gone into a pulseless electrical activity secondary to hypoxemia/hypoxia -post cardiac arrest pa
--- NOTE | 2021-08-12 17:08 | PDCODEBLUE ---
Code Blue Note Code Blue Note Time Arrived at Code Blue: 16: 30 hrs Initial Rhythm on Arrival: asystole Airway Management: Pt being bagged on arrival Chest Compressions: In process on arrival to bedside Result of Code Blue: Pt Cardiac Rhythm Post Code: asystole Code Blue Summary: Code was called at 1630 hrs. upon arrival for the code, chest compressions has begun. patient was moved off vent and was getting bagged. patient became hypoxic and heart rate slowed down and ultimately went to asystole. Pulse was not felt per nursing staff and chest compressions were started. after two rounds of epi and chest compressions, the ROSC was acheieved. patient had sinus tachycardia on the monitor. Shortly after, we lost the pulse and chest compressions were resumed. Epinephrine was restarted and later placed on epi gtt. several rounds of bicarb and calcium was given during the code. No ROSC was able to be obtained despite full resuscitative measures. Code was called at 1658 hrs. was notified of code and the outcome. Necessary arrangements were made.
--- NOTE | 2021-08-12 18:09 | PC.NURSE ---
At approximately 1625 Patient's oxygenation saturation began to rapidly decline. I immediately donned my PPE and entered the room. After assessing the patient and the ventilator to ensure no tubing had came loose or had become kinked, I suctioned the patient vis his ET tube and scant amount of thin green mucus was obtained. I called respiratory via vocera as patient's saturation had already dropped to 74%. traveling engineer Delvin Gonsales was now present in the room with me and we began to bag the patient with no difficulty. There was still a palpable carotid and femoral pulse at this time. RT Radha Sainz was now present and began to initiate a rescue cath while I continued to bag patient. During this time at 1630 we lost the patient's pulse and a Code Blue was initiated. was notified at this time.
--- NOTE | 2021-08-13 01:38 | PC.NURSE ---
It Application Administrator called to update per choice of [facility] in [place], [place].
--- NOTE | 2021-08-13 16:03 | P.DN_ITS ---
Discharge Summary Date and Time Date of : 08/12/21 Time of : 16:58 Provider Pronounced By: Moni Probable Cause of Probable Cause of : respiratory arrest Possible pulmonary embolism COVID pneumonia respiratory failure Septic shock NSTEMI Summary Hospital Course: the patient is 71-year-old male who presented with acute respiratory failure related to COVID pneumonia. He was tested positive for COVID on 07/29/2021. He present to the ED on 08/01/2021 with increasing shortness of breath. Patient was placed on high-flow oxygen and BiPAP. Eventually he went into respiratory distress needing intubation on 08/05/2021. Subsequent to hypoxia he had cardiac arrest and was revived. He was placed on hypothermia protocol in the ICU. Patient was also started on vasopressor because of hypotension. On 08/10/2021 he had another cardiac arrest with ROSC in 4 minutes with prolonged hypoxia. He also had been started on dexamethasone and completed remdesivir started on baricitinib. He remains on ventilation with a ICU. He was getting broad-spectrum antibiotic with vancomycin Zosyn and levofloxacin. he also had noted to have left upper extremity DVT and was started on therapeutic Lovenox however started bleeding from the right ear and hence the Lovenox was on hold. There was concern for basal skull fracture due to ear bleeding however further workup with CT temporal bone could not be done as he was unstable to go for CT scan. This did get ear bleeding however stopped and suspected bleeding to be trauma from the anterior reason rather than skull base fracture. On 08/12/2021 his hypoxia worsened that led to cardiac arrest. ROSC was not able to be achieved even with full resuscitative measures for more than 28 mins. He was pronounced at 4:58 p.m. necessary arrangements were made Additional Data Confirmation of as documented by pronouncing clinician: Pupillary Reflex, Palpable Pulses, Response to Stimuli, Heart Tones and Breath Sounds Name of Provider Notified: Moni Time Provider Notified: 16:58 Was code activated?: Yes Provider Requests Autopsy: No Family Requests Autopsy: No Health Plan Manager Notified: Yes Date [facility] Notified of : 08/12/21 Time [facility] Notified of : 17:16 Advance directives: Yes Hospice patient?: No
== END 2021-08-12 16:58 | disposition expired | DRG 870 ==
LOC: ANHED 17:02 → ANHIMU 17:32 → ANHICU 08-05 04:34
PROVIDERS: Family Medicine; Internal Medicine; Nurse Practitioner; Admitting Provider Family Medicine; Emergency Provider Emergency Medicine; PCP Nurse Practitioner Gerontology; Visit Provider Family Medicine
DX: A41.89 Other specified sepsis (principal); U07.1 COVID-19; J12.82 Pneumonia due to coronavirus disease 2019; J80 Acute respiratory distress syndrome; I21.4 Non-ST elevation (NSTEMI) myocardial infarction; R65.21 Severe sepsis with septic shock; J15.212 Pneumonia due to Methicillin resistant Staphylococcus aureus; I26.99 Other pulmonary embolism without acute cor pulmonale; I47.1 Supraventricular tachycardia; E87.2 Acidosis; G93.40 Encephalopathy, unspecified; N17.9 Acute kidney failure, unspecified; I82.622 Acute embolism and thrombosis of deep veins of left upper extremity; I47.2 Ventricular tachycardia; I10 Essential (primary) hypertension; Z87.891 Personal history of nicotine dependence; R73.03 Prediabetes; R74.01 Elevation of levels of liver transaminase levels; I67.2 Cerebral atherosclerosis; E78.2 Mixed hyperlipidemia; Z79.82 Long term (current) use of aspirin; M19.90 Unspecified osteoarthritis, unspecified site; R57.0 Cardiogenic shock; E86.1 Hypovolemia; R73.9 Hyperglycemia, unspecified; I46.8 Cardiac arrest due to other underlying condition; H92.21 Otorrhagia, right ear; I48.91 Unspecified atrial fibrillation; X58.XXXA Exposure to other specified factors, initial encounter; Y93.9 Activity, unspecified; Y92.230 Patient room in hospital as the place of occurrence of the external cause; Y99.9 Unspecified external cause status; S00.431A Contusion of right ear, initial encounter; E66.9 Obesity, unspecified; Z68.35 Body mass index [BMI] 35.0-35.9, adult
CPT/HCPCS: 31500; 36415; 36556; 36600; 70450; 71045; 71275; 74176; 76775; 80048; 80053; 80202; 81001; 82375; 82436; 82550; 82565; 82570; 82728; 82805; 82948; 83036; 83050; 83605; 83615; 83735; 84100; 84133; 84145; 84300; 84443; 84450; 84460; 84484; 85025; 85027; 85610; 85730; 85999; 86140; 87040; 87070; 87077; 87086; 87186; 87205; 92950; 93005; 93306; 93971; 94002; 94003; 94640; 96361; 96374; 96375; 99215; 99291; A9270; C1751; C9113; C9803; G0463; J0131; J0171; J0282; J1100; J1650; J1720; J1815; J1940; J1956; J2060; J2250; J2270; J2543; J2930; J3010; J3370; J7030; J7040; J7050; P9047; Q9967; U0003; U0005